=== PATIENT | male | born 1955 | race Caucasian/White ===

== ENCOUNTER 2023-05-02 22:47 | Emergency (ER) | payer MEDICARE, BC, SELFPAY ==
[2023-05-02 22:47] VITALS: BP 113/53; PULSE 81; RESP 16; TEMP 36.6; O2SAT 98; BMI 18.4
--- NOTE | 2023-05-02 23:11 | XR_ITS ---
PROCEDURE INFORMATION: Exam: XR Left Knee Exam date and time: 05/02/2023 11:34 PM Age: 67 years old Clinical indication: Pain; Knee; Left; Additional info: Fall, pain TECHNIQUE: Imaging protocol: Radiologic exam of the left knee. Views: 3 views. COMPARISON: No relevant prior studies available. FINDINGS: Bones/joints: Normal. No fracture evident Soft tissues: Normal. IMPRESSION: No acute findings.
--- NOTE | 2023-05-02 23:12 | ED_ITS ---
Discharge Plan Disposition Patient Disposition: Home, Self-Care Condition: Good Prescriptions Prescriptions: No Action multivitamin [Multi-Vitamin] Tablet 1 tab PO DAILY citalopram 10 mg Tablet 5 mg PO DAILY omeprazole 40 mg Capsule,Delayed Release(Dr/Ec) 40 mg PO DAILY haloperidol 10 mg Tablet 10 mg PO BID benztropine 1 mg Tablet 1 mg PO DAILY Referrals Follow up/Referrals: Abdulaziz Clay DO [Primary Care Provider] - See instructions Activity Restrictions/Add. Instructions Additional Instructions/Restrictions: You were evaluated in the emergency department today. Take Tylenol and ibuprofen as needed for pain. Follow-up with orthopedics if your pain persists beyond a few days. Return to the emergency department for new or worsening symptoms. Clinical Impressions Clinical Impression: Abrasion of knee, left, Fall Instructions Patient Instructions: How to Prevent Falls, DI for Knee Pain Discharge ED Provider: Myra Montes General Adult HPI General Chief complaint: Fall Stated complaint: Fall Time Seen by Provider: 05/02/23 23:00 Mode of Arrival: EMS Source of Information: Patient Limitations: No Limitations Description of Symptoms (Recalled from ER Triage Doc. by RN): pt had an unwitnessed fall and c/o lt leg pain History of Present Illness HPI narrative: This patient is a 67-year-old male with a history of schizophrenia presenting from [facility] with concern for a ground-level fall. Patient reports that he tripped and fell, and landed on his left knee. He has left knee pain. He does have an abrasion, for which a bandage was placed. No other injuries noted. No head injury, loss of consciousness, or other concerns. He was well prior to the fall. Patient arrives by EMS who notes that the patient was stable en route. Related Data Home Medications Medication Instructions Recorded Confirmed benztropine 1 mg tablet 1 mg PO DAILY 05/02/23 05/02/23 citalopram 10 mg tablet 5 mg PO DAILY 05/02/23 05/02/23 haloperidol 10 mg tablet 10 mg PO BID 05/02/23 05/02/23 multivitamin 1 tab PO DAILY 05/02/23 05/02/23 omeprazole 40 mg capsule,delayed 40 mg PO DAILY 05/02/23 05/02/23 release Allergies Allergy/AdvReac Type Severity Reaction Status Date / Time No Known Allergies Allergy Verified 05/02/23 22:53 [facility] Disclaimer: The information contained in this section may have been updated after the patient was seen, as this information can be updated by other users. Social History Smoking Status: Current every day smoker alcohol intake: never current occupational status: unemployed Travel in the last 8 weeks: None ROS Obtained: Yes All systems reviewed & no additional complaints except as documented Physical Exam General General appearance: alert and in no apparent distress Head Head exam: atraumatic and normocephalic Eye Eye exam: Present normal appearance, PERRL and EOMI ENT ENT exam: Present normal exam, normal oropharynx, mucous membranes moist and normal external ear exam Neck Neck exam: Present normal inspection, full ROM and trachea midline; Absent tenderness Chest Chest inspection: Present normal inspection and symmetric chest wall rise; Absent tenderness Respiratory Respiratory exam: Present normal lung sounds bilaterally; Absent respiratory distress, wheezes, stridor or accessory muscle use Cardiovascular Cardiovascular exam: Present regular rate and normal rhythm Abdominal Exam Abdominal exam: Present soft; Absent distention, tenderness or guarding Extremities Exam Extremities exam: Present full ROM, normal capillary refill and other (Superficial abrasion to the left knee); Absent tenderness, edema, joint swelling or cyanosis Back Exam Back exam: Present normal inspection and full ROM; Absent tenderness Neurological Exam Neurological exam: Present alert, oriented X3, CN II-XII intact and normal gait; Absent motor sensory deficit Psychiatric Psychiatric exam: Present normal affect and normal mood Skin Skin exam: Present warm, dry and other (Superficial abrasion to the left knee) Medical Decision Making Medical Records Medical records reviewed: Yes I reviewed the patient's medical records. Ruddy Inquiry Pt receiving controlled substance: No Vital Signs: 05/02/23 22:47 05/02/23 23:30 05/03/23 00:01 Temperature 97.9 F Temperature Source Oral Pulse Rate 64 65 Pulse Rate [Right] 81 Respiratory Rate 16 Blood Pressure 146/72 H 134/72 Blood Pressure [Right Arm] 113/53 L Blood Pressure Mean [Right Arm] 73 02 Sat by Pulse Oximetry 98 99 97 Oxygen Delivery Method 05/03/23 00:45 Temperature Temperature Source Pulse Rate 96 H Pulse Rate [Right] Respiratory Rate Blood Pressure 167/71 H Blood Pressure [Right Arm] Blood Pressure Mean [Right Arm] 02 Sat by Pulse Oximetry 81 L Oxygen Delivery Method Room Air Lab Data Lab results reviewed: Yes I reviewed the patient's lab results. Orders (Tests/Meds): ORDERS Category Date Time Status XR knee LT 3V Stat Exams 05/02/23 23:11 Completed Medical Decision Narrative: In summary, this patient is a 67-year-old male presenting to the Emergency Department for evaluation of left knee pain after a minor mechanical ground-leve l fall. Differential diagnoses considered include but are not limited to abrasion, contusion, ligamentous injury, joint effusion, status: Strain/pain, fracture. Ruling out the most morbid conditions drove assessment. It should be noted patient's history includes schizophrenia which may or may not be at goal therapy. This complicates all aspects of care by increasing patient's risk for morbidity. On exam, the patient is well-appearing and has no external signs of trauma aside from a superficial abrasion to the left knee. Workup included x-rays of the left knee. Given the minor nature of his injuries, I did not feel that other imaging was indicated. I independently interpreted x-ray prior to the radiologist read and noted no joint effusion, no acute fracture, and no other concerns. Please see their read for final interpretation. At this time, patient was deemed appropriate for discharge. His facility was contacted, and the patient was discharged back to them in stable condition. Critical Care Critical Care Time Critical Care Time: No
[2023-05-02 23:30] VITALS: BP 146/72; PULSE 64; O2SAT 99
[2023-05-03 00:01] VITALS: BP 134/72; PULSE 65; O2SAT 97
--- NOTE | 2023-05-03 00:35 | PC.NURSE ---
phone call made to Kevan Mckeon for patient transport back to facility. no answer.
[2023-05-03 00:45] VITALS: BP 167/71; PULSE 96; O2SAT 81
--- NOTE | 2023-05-03 00:46 | PC.NURSE ---
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 They will call us back
--- NOTE | 2023-05-03 01:41 | PC.NURSE ---
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
[2023-05-03 01:48] VITALS: BP 165/70; PULSE 65; RESP 18; TEMP 36.8; O2SAT 97
== END 2023-05-03 01:49 | disposition home or self-care (01) ==
PROVIDERS: Emergency Provider Emergency Medicine; PCP Internal Medicine
DX: S80.212A Abrasion, left knee, initial encounter (principal); F17.210 Nicotine dependence, cigarettes, uncomplicated; W01.10XA Fall on same level from slipping, tripping and stumbling with subsequent striking against unspecified object, initial encounter
CPT/HCPCS: 73562; 99283

== ENCOUNTER 2023-05-03 20:30 | Emergency (ER) | payer MEDICARE, BC, SELFPAY ==
[2023-05-03] VITALS (7 sets, daily range): BP systolic 124–147; BP diastolic 68–90; PULSE 77–105; RESP 20–33; TEMP 36.8–37; O2SAT 95–100; BMI 23.5
--- NOTE | 2023-05-03 20:39 | ED_ITS ---
Discharge Plan Disposition Patient Disposition: Xfer Short-Term Hosp Chief Complaint: PAIN Prescriptions Prescriptions: No Action multivitamin [Multi-Vitamin] Tablet 1 tab PO DAILY citalopram 10 mg Tablet 5 mg PO DAILY omeprazole 40 mg Capsule,Delayed Release(Dr/Ec) 40 mg PO DAILY haloperidol 10 mg Tablet 10 mg PO BID benztropine 1 mg Tablet 1 mg PO DAILY Referrals Follow up/Referrals: Avelino Maynard APRN [Primary Care Provider] - See instructions Clinical Impressions Clinical Impression: Fall Closed intertrochanteric fracture Qualifiers: Encounter type: initial encounter Fracture alignment: displaced Laterality: left Qualified Code(s): S72.142A - Displaced intertrochanteric fracture of left femur, initial encounter for closed fracture Discharge ED Provider: Carlos Eduardo Bennett General Adult HPI General Chief complaint: PAIN Stated complaint: Difficulty walking Time Seen by Provider: 05/03/23 20:32 History of Present Illness HPI narrative: 67 male with history of tardive dyskinesia secondary to chronic psychiatric meds presenting with left leg pain. Patient states that his left leg has been hurting since yesterday, 05/02. Cramping, is around his knee anteriorly. Made worse with trying to walk. He is able to bear weight, but it hurts to do this. He currently stays at [facility]. Patient states that his tremor, breathing, and baseline appearance today are not worse. His only complaint is left knee pain, which is atraumatic and was worked up with imaging yesterday. Related Data Home Medications Medication Instructions Recorded Confirmed benztropine 1 mg tablet 1 mg PO DAILY 05/02/23 05/02/23 citalopram 10 mg tablet 5 mg PO DAILY 05/02/23 05/02/23 haloperidol 10 mg tablet 10 mg PO BID 05/02/23 05/02/23 multivitamin 1 tab PO DAILY 05/02/23 05/02/23 omeprazole 40 mg capsule,delayed 40 mg PO DAILY 05/02/23 05/02/23 release Allergies Allergy/AdvReac Type Severity Reaction Status Date / Time No Known Allergies Allergy Verified 05/02/23 22:53 [facility] Disclaimer: The information contained in this section may have been updated after the patient was seen, as this information can be updated by other users. Social History (Updated 05/03/23 @ 01:40 by EMMIE Delatorre Smoking Status: Unknown if ever smoked alcohol intake: never current occupational status: unemployed Travel in the last 8 weeks: None ROS Obtained: Yes All systems reviewed & no additional complaints except as documented Physical Exam General General appearance: alert, in no apparent distress and cachectic Head Head exam: atraumatic and normocephalic Eye Eye exam: Present normal appearance, PERRL, EOMI and other (No evidence of proptosis) ENT ENT exam: Present mucous membranes moist and other (Edentulous) Neck Neck exam: Present normal inspection, full ROM and trachea midline Respiratory Respiratory exam: Present normal lung sounds bilaterally and other (Tachypneic with periodic); Absent respiratory distress, wheezes, stridor, accessory muscle use or prolonged expiratory phase Cardiovascular Cardiovascular exam: Present normal rhythm and tachycardia Abdominal Exam Abdominal exam: Present soft; Absent distention, tenderness, guarding, rebound or rigidity Extremities Exam Extremities exam: Present other (Decreased range of motion left knee secondary to pain with extension and muscle spasms posteriorly when extending. Structurally intact. No lower extremity injuries. Neurovascular intact as well. Hip is externally rotated); Absent edema Neurological Exam Neurological exam: Present alert, CN II-XII intact, normal gait and other (Upper and lower extremity tremors); Absent motor sensory deficit Skin Skin exam: Present warm and dry; Absent diaphoresis or erythema Medical Decision Making Medical Records Medical records reviewed: Yes I reviewed the patient's medical records. Ruddy Inquiry Pt receiving controlled substance: No Ruddy was queried for this patient: No Vital Signs: 05/03/23 20:33 05/03/23 20:31 05/03/23 21:02 Temperature 98.6 F Temperature Source Axillary Pulse Rate 105 H Pulse Rate [Left Radial] 103 H Respiratory Rate 24 20 33 H Blood Pressure 147/90 H 124/68 Blood Pressure [Right Arm] 147/90 H Blood Pressure Mean [Right Arm] 109 Blood Pressure Source [Right Arm] Automatic Cuff Blood Pressure Position [Right Arm] Supine 02 Sat by Pulse Oximetry 97 95 Oxygen Delivery Method Room Air 05/03/23 21:33 Temperature Temperature Source Pulse Rate 92 H Pulse Rate [Left Radial] Respiratory Rate 21 Blood Pressure 141/71 H Blood Pressure [Right Arm] Blood Pressure Mean [Right Arm] Blood Pressure Source [Right Arm] Blood Pressure Position [Right Arm] 02 Sat by Pulse Oximetry 100 Oxygen Delivery Method Lab Data Lab Results 05/03/23 20:28: Urine Color Yellow, Urine Appearance Clear, Urine pH 6.0, Ur Specific [place] 1.025, Urine Protein Negative, Urine Glucose (UA) Negative, Urine Ketones Trace, Urine Blood Negative, Urine Nitrate Negative, Urine Bilirubin Negative, Urine Urobilinogen 0.2, Ur Leukocyte Esterase Negative, Urine RBC None, Urine WBC None, Ur Squamous Epith Cells None, Urine Bacteria None, Urine Opiates Screen Negative, Urine Methadone Screen Negative, Ur Barbituates Screen Negative, Ur Phencyclidine Scrn Negative, Ur Amphetamines Screen Negative, U Benzodiazepines Scrn Negative, Urine Cocaine Screen Negative, U Marijuana (THC) Screen Negative Orders (Tests/Meds): ED MEDICATIONS Discontinued Medications Generic Name Dose Route Start Last Admin Trade Name Tila PRN Reason Stop Dose Admin Hydromorphone HCl 0.5 mg 05/03/23 22:10 Hydromorphone 2mg/Ml Syringe IV 05/03/23 22:11 ONCE ONE Ketorolac Tromethamine 15 mg 05/03/23 22:10 Ketorolac 30mg/Ml Vial IV 05/03/23 22:11 ONCE ONE Methocarbamol 750 mg 05/03/23 20:43 05/03/23 20:56 Methocarbamol 500mg Tablet PO 05/03/23 20:44 750 mg ONCE ONE Administration ORDERS Category Date Time Status Femur XR left 2 views [XR femur LT 2V] Stat Exams 05/03/23 20:47 Taken Hip XR left minimum 2 views [XR hip LT 2-3V w/pelvis] Exams 05/03/23 20:47 Taken Stat Knee XR left 3 views [XR knee LT 3V] Stat Exams 05/03/23 20:47 Taken CBC w/Auto Diff [Complete Blood Count Auto Diff] Stat Lab 05/03/23 20:38 Ordered CMP [Comprehensive Metabolic Panel] Stat Lab 05/03/23 20:38 Ordered Magnesium Stat Lab 05/03/23 20:38 Ordered PT INR [Prothrombin Time INR] Stat Lab 05/03/23 22:06 Ordered PTT [Activated Partial Thrombo Time] Stat Lab 05/03/23 22:06 Ordered T4 (Thyroxine) Stat Lab 05/03/23 20:38 Ordered TSH [Thyroid Stimulating Hormone] Stat Lab 05/03/23 20:38 Ordered UA [Urinalysis and Microscopic] Stat Lab 05/03/23 20:28 Completed UDS [Drug Screen,Urine] Stat Lab 05/03/23 20:28 Completed Medical Decision Narrative: 67 male with history of tardive dyskinesia secondary to chronic psychiatric meds presenting with left leg pain. Patient states that his left leg has been hurting since yesterday, 05/02. Cramping, is around his knee anteriorly. Made worse with trying to walk. He is able to bear weight, but it hurts to do this. He currently stays at [facility]. Patient states that his tremor, breathing, and baseline appearance today are not worse. His only complaint is l eft knee pain, which is atraumatic and was worked up with imaging yesterday. History was obtained via conversation with patient, EMS, [facility] staff. [facility] staff also state that patient has not been up out of bed, but was found in his wheelchair upon EMS arrival and denying knowledge of any further falls today. On arrival, patient hemodynamically stable, alert, appropriate, GCS 15, moving all extremities spontaneously, pupils equal and reactive to light. Full physical exam performed and significant for tenderness about left lower extremity when trying to extend left knee. Able to, but patient having muscle spasms on the back of his leg and straight leg positive. Patient's left lower extremity is externally rotated. Neurovascularly intact. No lower extremity tr auma or other abnormalities. Differential includes sprain, strain, fracture, dislocation, radiculopathy, muscle spasm, among others. Patient was given Robaxin 750 mg p.o. for symptomatic management and correction of underlying abnormalities. Workup independently interpreted. patient has left-sided intertrochanteric femur fracture. No evidence of pelvis or knee abnormalities. See radiology read for full review of final results. Hematologic labs pending at time of transfer. On reevaluation, patient in moderate to severe pain. Given Dilaudid and Toradol. Because we do not have orthopedics here at [facility], orthopedic surgery at [facility] was contacted. Given patient presentation, workup, history, this most likely represents acute femur fracture in setting of fall. Because patient high risk for clinical decompensation if discharged, deemed appropriate for transfer and inpatient admission. Results were relayed to patient who voiced understanding and patient was agreeable to transfer, inpatient admission, and management. Patient was graciously accepted and transferred to for further definitive management, under Dr. Andrew. Critical Care Critical Care Time Critical Care Time: Yes (ortho) Attestation: On 05/03/23, the high probability of a clinically significant, sudden or life threatening deterioration of the following system(s) required my full and direct attention, intervention and personal management. The time I documented below is in addition to time spent performing reported procedures but includes the following listed in this critical care notation. Total Time Total Critical Care Time: 35
[2023-05-03 20:42] LABS: Microscopic, Urine URINE MICROSCOPIC (MICROSCOPIC)
--- NOTE | 2023-05-03 20:47 | XR_ITS ---
PROCEDURE INFORMATION: Exam: XR Left Hip Exam date and time: 05/03/2023 9:46 PM Age: 67 years old Clinical indication: Injury or trauma; Fall; Fracture of pelvis & hip; Left; Not specified; Neck of femur; Closed fracture; Additional info: Left him and knee pain TECHNIQUE: Imaging protocol: Radiologic exam of the left hip. Views: 2 or 3 views hip with pelvis when performed. COMPARISON: No relevant prior studies available. FINDINGS: Bones/joints: Comminuted, displaced, angulated, impacted left femoral intratrochanteric fracture. No dislocation. Unremarkable right hip for acute findings. Soft tissues: Unremarkable. IMPRESSION: Left femoral intratrochanteric fracture.
--- NOTE | 2023-05-03 20:47 | XR_ITS ---
PROCEDURE INFORMATION: Exam: XR Left Femur Exam date and time: 05/03/2023 9:49 PM Age: 67 years old Clinical indication: Injury or trauma; Fall; Fracture, traumatic; Closed fracture; Hip; Left; Additional info: Left him and knee pain TECHNIQUE: Imaging protocol: Radiologic exam of the left femur. Views: 2 views. COMPARISON: CR XR HIP LT 2-3V W/PELVIS 05/03/2023 9:46 PM FINDINGS: Bones/joints: Unremarkable. No acute fracture. Soft tissues: Unremarkable. IMPRESSION: No acute findings.
--- NOTE | 2023-05-03 20:47 | XR_ITS ---
PROCEDURE INFORMATION: Exam: XR Left Knee Exam date and time: 05/03/2023 9:50 PM Age: 67 years old Clinical indication: Injury or trauma; Fall; Fracture, traumatic; Closed fracture; Hip; Left; Additional info: Left him and knee pain TECHNIQUE: Imaging protocol: Radiologic exam of the left knee. Views: 3 views. COMPARISON: CR XR KNEE LT 3V 05/02/2023 11:34 PM FINDINGS: Bones/joints: Mild degenerative changes. Intact cortices. Normal bony density. Soft tissues: Normal. IMPRESSION: No acute findings.
[2023-05-03 20:51] LABS: Appearance,Urine CLEAR (Clear); Bilirubin,Urine Negative (Negative); Blood, Urine Negative (Negative); Color,Urine YELLOW (Yellow); Glucose,Urine (UA) Negative (Negative); Ketones,Urine TRACE (Negative); Leukocyte Esterase,Urine Negative (Negative); Nitrate,Urine Negative (Negative); Protein,Urine Negative (Negative); Specific Gravity, Urine 1.025 (1.005-1.030); Urobilinogen,Urine 0.2 EU/dl (0.2)
[2023-05-03] MEDS: METHOCARBAMOL 500MG TABLET 750 MG PO (20:56)
[2023-05-03 21:03] LABS: Benzodiazepines Screen,Urine Negative ng/ml (<200)
[2023-05-03 21:04] LABS: Amphetamine/Metha Screen,Urine Negative ng/ml (<1000); Barbiturates Screen,Urine Negative ng/ml (<200)
[2023-05-03 21:05] LABS: Cannabinoid Screen,Urine Negative ng/ml (<50)
[2023-05-03 21:06] LABS: Cocaine Screen,Urine Negative ng/ml (<300)
[2023-05-03 21:07] LABS: Opiate Screen,Urine Negative ng/ml (<300); Phencyclidine Screen,Urine Negative ng/ml (<25)
[2023-05-03 21:10] LABS: Methadone Screen,Urine Negative ng/ml (<300)
--- NOTE | 2023-05-03 21:31 | PC.NURSE ---
Rounded on patient, no needs voiced at this time.
--- NOTE | 2023-05-03 21:49 | PC.NURSE ---
patient gone to Xray at this time.
--- NOTE | 2023-05-03 22:11 | PC.NURSE ---
o/p with at this time.
--- NOTE | 2023-05-03 22:14 | PC.NURSE ---
[facility] will call back when physician is available.
--- NOTE | 2023-05-03 22:23 | PC.NURSE ---
o/p with at this time.
--- NOTE | 2023-05-03 22:27 | PC.NURSE ---
patient accepted to [facility] at this time at this time.
[2023-05-03] MEDS: HYDROMORPHONE 2MG/ML SYRINGE 0.5 MG IV (22:29)
--- NOTE | 2023-05-03 22:29 | PC.NURSE ---
patient back in room at this time.
[2023-05-03] MEDS: KETOROLAC 30MG/ML VIAL 15 MG IV (22:30)
[2023-05-03 22:39] LABS: Basophils % 0.2 % (0.1-2.0); Eosinophils # 0.2 K/mm3 (0.0-0.4); Eosinophils % 1.6 % (0.1-12.0); Hematocrit 32.8 % (42.0-52.0); Hemoglobin 11.1 g/dL (14.1-18.0); Lymphocytes # 1.4 K/mm3 (0.7-4.5); Lymphocytes % 9.4 % (10-50); Mean Corpuscular HGB Conc 33.9 g/dL (31.8-35.4); Mean Corpuscular Hemoglobin 33.1 pg (27.0-31.2); Mean Corpuscular Volume 97.6 fl (80-94); Mean Platelet Volume 8.2 fl (7.4-10.4); Monocytes # 0.8 K/mm3 (0.1-1.0); Monocytes % 5.6 % (1.7-9.3); Neutrophils # 12.3 K/mm3 (1.8-7.8); Neutrophils % 83.3 % (37.0-80.0); Platelet Count 279 K/mm3 (142-424); Red Blood Count 3.36 M/mm3 (4.60-6.20); Red Cell Distribution Width 13.5 % (11.5-17.5); White Blood Count 14.8 K/mm3 (4.8-10.8)
[2023-05-03 22:44] LABS: Chloride 109 mmol/L (98-107); Potassium 4.2 mmoL/L (3.5-5.1); Sodium 138 mmol/L (136-145)
[2023-05-03 22:46] LABS: Blood Urea Nitrogen 48 mg/dl (9-20); Creatinine Clearance Estimated 37 mL/min (50-200); Estimated Glomerular Filt Rate 38 ml/min (>60); GFR (African American) 45 ML/MIN (>60)
[2023-05-03 22:47] LABS: Alanine Aminotransferase 42 U/L (12-78); Albumin Level 4.3 g/dl (3.5-5.0); Albumin/Globulin Ratio 1.3 (1.1-1.8); Alkaline Phosphatase 94 U/L (38-126); Anion Gap 14.2 mEq/L (5-15); Aspartate Amino Transferase 43 U/L (17-59); Bilirubin,Total 1.4 mg/dl (0.2-1.3); Calcium 9.1 mg/dl (8.4-10.2); Carbon Dioxide 19 mmol/L (22.0-30.0); Globulin 3.2 g/dL (1.3-3.2); Glucose 121 mg/dl (74-100); Total Protein,Serum 7.5 g/dl (6.3-8.2)
--- NOTE | 2023-05-03 22:47 | PC.NURSE ---
Report called to [facility] ED
--- NOTE | 2023-05-03 22:50 | PC.NURSE ---
notified EMS that pt is ready for transport to ER
[2023-05-03 23:04] LABS: Activated Partial Thrombo Time 21.7 seconds (22.8-30.6); INR 1.11 (0.9-1.1); Prothrombin Time 11.9 seconds (10.1-12.5)
[2023-05-03 23:05] LABS: T4 (Thyroxine) 8.5 ug/dl (5.53-11.0)
[2023-05-03] MEDS: HYDROMORPHONE 2MG/ML SYRINGE 1 MG IV (23:06)
[2023-05-03 23:18] LABS: Thyroid Stimulating Hormone 2.49 uIU/mL (0.465-4.68)
[2023-05-03] MEDS: ONDANSETRON 4MG/2ML VIAL 4 MG IV (23:31)
== END 2023-05-03 23:34 | disposition short-term general hospital (02) ==
PROVIDERS: Emergency Provider Emergency Medicine; PCP Nurse Practitioner Acute Care
DX: S72.142A Displaced intertrochanteric fracture of left femur, initial encounter for closed fracture (principal); G24.01 Drug induced subacute dyskinesia; Z79.899 Other long term (current) drug therapy; W19.XXXA Unspecified fall, initial encounter
CPT/HCPCS: 73502; 73552; 73562; 80053; 80307; 81001; 83735; 84436; 84443; 85025; 85610; 85730; 96374; 96375; 96376; 99285; J2405

== ENCOUNTER 2023-06-15 01:55 | Emergency (ER) | payer MEDICARE, BC, SELFPAY ==
[2023-06-15] VITALS (8 sets, daily range): BP systolic 100–112; BP diastolic 49–60; PULSE 62–70; RESP 16–18; TEMP 36.6–36.8; O2SAT 97–98; BMI 24.4
--- NOTE | 2023-06-15 01:56 | XR_ITS ---
PROCEDURE INFORMATION: Exam: XR Left Hip Exam date and time: 06/15/2023 2:08 AM Age: 67 years old Clinical indication: Pain and injury or trauma; Fall; Blunt trauma (contusions or hematomas); Hip pain; Left hip; Prior surgery; Surgery date: 1-6 months; Surgery type: Lt. Hip FX. And repair apr 2023 TECHNIQUE: Imaging protocol: Radiologic exam of the left hip. Views: 2 or 3 views hip with pelvis when performed. COMPARISON: CR XR HIP LT 2-3V W/PELVIS 05/03/2023 9:46 PM FINDINGS: Bones/joints: The bony pelvis is intact. There is no fracture or focal lesion. The SI joints, hips and pubic symphysis are normally aligned. Dedicated imaging of the left hip demonstrates normal alignment. There is transfemoral nail fixation of a prior intertrochanteric fracture. Fracture line remains evident medially. Soft tissues: Unremarkable. IMPRESSION: Normally aligned left hip. No acute findings.
--- NOTE | 2023-06-15 01:56 | XR_ITS ---
PROCEDURE INFORMATION: Exam: XR Left Femur Exam date and time: 06/15/2023 2:12 AM Age: 67 years old Clinical indication: Pain; Left; Prior surgery; Surgery date: 1-6 months; Surgery type: Lt hip surgery in 2023; Additional info: Fall TECHNIQUE: Imaging protocol: Radiologic exam of the left femur. Views: 2 views. COMPARISON: CR XR FEMUR LT 2V 05/03/2023 9:49 PM FINDINGS: Bones/joints: There is transfemoral nail fixation of a left intertrochanteric fracture. The alignment is anatomic. No acute fracture is noted. Medial portion of the fracture remains evident. The distal femur is intact. The knee and hip are normally aligned. Soft tissues: Unremarkable. IMPRESSION: No acute findings. Transforaminal nail fixation of a left intratrochanteric fracture.
--- NOTE | 2023-06-15 01:56 | XR_ITS ---
PROCEDURE INFORMATION: Exam: XR Left Knee Exam date and time: 06/15/2023 2:10 AM Age: 67 years old Clinical indication: Pain; Knee; Left; Additional info: Knee pain TECHNIQUE: Imaging protocol: Radiologic exam of the left knee. Views: 3 views. COMPARISON: CR XR KNEE LT 3V 05/03/2023 9:50 PM FINDINGS: Bones/joints: The knee is normally aligned. No acute fracture or joint effusion. No significant degenerative changes. Tubular lucency proximal tibial shaft likely related to prior fixation screw. Soft tissues: Normal. IMPRESSION: No acute findings.
--- NOTE | 2023-06-15 02:09 | ED_ITS ---
Discharge Plan Disposition Patient Disposition: Home, Self-Care Prescriptions Prescriptions: No Action multivitamin [Multi-Vitamin] Tablet 1 tab PO DAILY citalopram 10 mg Tablet 5 mg PO DAILY omeprazole 40 mg Capsule,Delayed Release(Dr/Ec) 40 mg PO DAILY haloperidol 10 mg Tablet 10 mg PO BID benztropine 1 mg Tablet 1 mg PO DAILY Referrals Follow up/Referrals: Provider,Referral, MD [Primary Care Provider] - See instructions Clinical Impressions Clinical Impression: Knee pain, left Discharge ED Provider: Dario Hargrove General Adult HPI General Chief complaint: PAIN Stated complaint: Evaluation Time Seen by Provider: 06/15/23 01:55 History of Present Illness HPI narrative: 67-year-old male with history of psychiatric comorbidities, resident at a [facility], recent intertrochanteric left femur fracture that was transferred to , presents from the [facility] without significant complaints. He reportedly complained to the workers there that he was not feeling well, they checked his blood pressure with a blood pressure cuff on his wrist and reported that his blood pressure was 180s over 160s and called EMS. On EMS arrival patient had normal vital signs including blood pressure heart rate SpO2. Arrival patient is awake alert interactive and his only complaint is atraumatic left knee pain. He denies any other complaints at this time. Related Data Home Medications Medication Instructions Recorded Confirmed benztropine 1 mg tablet 1 mg PO DAILY 05/02/23 05/02/23 citalopram 10 mg tablet 5 mg PO DAILY 05/02/23 05/02/23 haloperidol 10 mg tablet 10 mg PO BID 05/02/23 05/02/23 multivitamin 1 tab PO DAILY 05/02/23 05/02/23 omeprazole 40 mg capsule,delayed 40 mg PO DAILY 05/02/23 05/02/23 release Allergies Allergy/AdvReac Type Severity Reaction Status Date / Time No Known Allergies Allergy Verified 05/02/23 22:53 [facility] Disclaimer: The information contained in this section may have been updated after the patient was seen, as this information can be updated by other users. Social History (Updated 05/03/23 @ 01:40 by Myra Montes DO) Smoking Status: Current every day smoker alcohol intake: never current occupational status: unemployed Travel in the last 8 weeks: None ROS Obtained: Yes All systems reviewed & no additional complaints except as documented Physical Exam General General appearance: alert and in no apparent distress Head Head exam: atraumatic and normocephalic Eye Eye exam: Present normal appearance, PERRL and EOMI ENT ENT exam: Present normal oropharynx, normal external ear exam and other (Poor dentition) Neck Neck exam: Present normal inspection and full ROM Chest Chest inspection: Present normal inspection and symmetric chest wall rise; Absent tenderness Respiratory Respiratory exam: Present normal lung sounds bilaterally; Absent respiratory distress Cardiovascular Cardiovascular exam: Present regular rate and normal rhythm Abdominal Exam Abdominal exam: Present soft; Absent distention, tenderness or guarding Extremities Exam Extremities exam: Present normal inspection and other (No significant tenderness of the left knee, no swelling, normal range of motion, no overlying erythema); Absent edema or joint swelling Back Exam Back exam: Present normal inspection; Absent tenderness Neurological Exam Neurological exam: Present alert and oriented X3; Absent motor sensory deficit Psychiatric Psychiatric exam: Present normal affect and normal mood Skin Skin exam: Present warm, dry and normal color Lymphatic Lymphatic Findings: no adenopathy Medical Decision Making Medical Records Medical records reviewed: Yes I reviewed the patient's medical records. Ruddy Inquiry Pt receiving controlled substance: No Ruddy was queried for this patient: No Vital Signs: 06/15/23 01:55 06/15/23 02:00 06/15/23 02:20 Temperature 97.9 F Temperature Source Oral Pulse Rate 62 Pulse Rate [Left] 63 62 Respiratory Rate 16 18 16 Blood Pressure 100/49 L Blood Pressure [Right Arm] 105/51 L 100/49 L Blood Pressure Mean 68 Blood Pressure Mean [Right Arm] 69 66 02 Sat by Pulse Oximetry 97 98 97 Oxygen Delivery Method Room Air Room Air Room Air 06/15/23 02:57 06/15/23 03:00 06/15/23 03:30 Temperature 98.3 F Temperature Source Oral Pulse Rate 70 Pulse Rate [Left] 65 62 Respiratory Rate 16 16 16 Blood Pressure 100/49 L Blood Pressure [Right Arm] 110/60 106/54 L Blood Pressure Mean Blood Pressure Mean [Right Arm] 76 71 02 Sat by Pulse Oximetry 97 97 Oxygen Delivery Method Room Air 06/15/23 04:00 06/15/23 04:47 Temperature 97.9 F Temperature Source Pulse Rate 65 Pulse Rate [Left] 62 Respiratory Rate 16 16 Blood Pressure 112/60 Blood Pressure [Right Arm] 108/56 L Blood Pressure Mean Blood Pressure Mean [Right Arm] 73 02 Sat by Pulse Oximetry 97 Oxygen Delivery Method Room Air Lab Data Lab results reviewed: Yes I reviewed the patient's lab results. Orders (Tests/Meds): ED MEDICATIONS Discontinued Medications Generic Name Dose Route Start Last Admin Trade Name Tila PRN Reason Stop Dose Admin Acetaminophen 1,000 mg 06/15/23 01:56 Acetaminophen 500mg Tab PO 06/15/23 01:57 ONCE ONE ORDERS Category Date Time Status Femur XR left 2 views [XR femur LT 2V] Stat Exams 06/15/23 01:56 Completed Knee XR left 3 views [XR knee LT 3V] Stat Exams 06/15/23 01:56 Completed XR hip LT 2-3V w/pelvis Stat Exams 06/15/23 01:56 Completed Medical Decision Narrative: 67-year-old male with history of psychiatric comorbidities, resident at a [facility], presents from his facility after concerns about his blood pressure. His vitals were normal with EMS and on arrival, his only complaint is left knee pain.. History was obtained interactive discussion with patient, EMS, chart review. On arrival, patient is afebrile, hemodynamically stable, satting appropriately on room air, awake alert and interactive, mental status seems to be at baseline, moving all extremities spontaneously. Full physical exam performed and significant for no acute trauma or focal tenderness. Differential includes but is not limited to fracture, dislocation, neurovascular/ligamentous injury Patient was given Tylenol for symptomatic management and correction of underlying abnormalities. Workup initiated including radiographs of the left hip femur knee. On re-evaluation, patient [remains afebrile, HD stable.] Reports symptomatic improvement after Tylenol. Imaging independently interpreted by me and significant for stable appearance of the patient's fixating hardware, no new fracture or dislocation. See radiology read for full review of final results. Given patient history, exam and workup, patient's presentation most likely represents left knee pain without concern for significant emergent pathology. Patient was discharged in stable condition. Return precautions given. Procedures Risk/Benefits of Procedure(s) Were Explained: Yes Critical Care Critical Care Time Critical Care Time: No
--- NOTE | 2023-06-15 04:00 | PC.NURSE ---
Called [facility] to get status update. They report they had an influx of critical studies, but have just assigned these studies now to a radiologist
--- NOTE | 2023-06-15 04:07 | PC.NURSE ---
Just received all study reads from [facility]. made aware
--- NOTE | 2023-06-15 04:38 | PC.NURSE ---
spoke with [facility] staff they advised they would pass on the dayshift that patient need to be pick up attendant
== END 2023-06-15 04:48 | disposition home or self-care (01) ==
PROVIDERS: Emergency Provider Emergency Medicine
DX: M25.562 Pain in left knee (principal); F17.210 Nicotine dependence, cigarettes, uncomplicated
CPT/HCPCS: 73502; 73552; 73562; 99284

== ENCOUNTER 2023-09-05 11:09 | Emergency (ER) | payer MEDICARE, BC, SELFPAY ==
[2023-09-05] VITALS (11 sets, daily range): BP systolic 100–115; BP diastolic 42–89; PULSE 58–105; RESP 16–18; TEMP 36.6–36.8; O2SAT 95–99; BMI 3612.6
--- NOTE | 2023-09-05 11:24 | PC.NURSE ---
DR MCDUFFIE AT BEDSIDE
--- NOTE | 2023-09-05 11:25 | XR_ITS ---
FINAL REPORT CLINICAL HISTORY: fall COMPARISON: 05/03/2023 FINDINGS: Two views show of the left femur were obtained. Patient is status post ORIF change of the left proximal femur with incomplete bony union of the intertrochanteric fracture. No new fracture is identified. IMPRESSION: Incomplete union of the intertrochanteric fracture. Reviewed, Interpreted and Dictated by Radha Neal MD Transcribed by Jerilyn Oh Authenticated and . [facility]
--- NOTE | 2023-09-05 11:25 | XR_ITS ---
FINAL REPORT CLINICAL HISTORY: fall COMPARISON: 05/03/2023 FINDINGS: There is no acute fracture or dislocation. The joint spaces are intact. There is no soft tissue abnormality. IMPRESSION: No acute fracture Reviewed, Interpreted and Dictated by Radha Neal MD Transcribed by Jerilyn Oh Authenticated and . [facility]
--- NOTE | 2023-09-05 11:26 | XR_ITS ---
FINAL REPORT CLINICAL HISTORY: fall FINDINGS: Three views of the left hip were obtained. Patient is status post ORIF change of the left proximal femur with incomplete bony union of the intertrochanteric fracture. No new fracture is identified. IMPRESSION: Incomplete union of the intertrochanteric fracture. Reviewed, Interpreted and Dictated by Radha Neal MD Transcribed by Jerilyn Oh Authenticated and . [facility]
--- NOTE | 2023-09-05 11:26 | ED_ITS ---
Discharge Plan Disposition Patient Disposition: Home, Self-Care Chief Complaint: Fall Prescriptions Prescriptions: No Action multivitamin [Multi-Vitamin] Tablet 1 tab PO DAILY citalopram 10 mg Tablet 5 mg PO DAILY omeprazole 40 mg Capsule,Delayed Release(Dr/Ec) 40 mg PO DAILY haloperidol 10 mg Tablet 10 mg PO BID benztropine 1 mg Tablet 1 mg PO DAILY Referrals Follow up/Referrals: Provider,Referral, MD [Primary Care Provider] - See instructions Clinical Impressions Clinical Impression: Fall, Knee pain, left Discharge ED Provider: Antoine Harman General Adult HPI General Chief complaint: Fall Stated complaint: FALL Time Seen by Provider: 09/05/23 11:12 Mode of Arrival: EMS Source of Information: EMS Limitations: No Limitations Description of Symptoms (Recalled from ER Triage Doc. by RN): pt brought in by [facility] for a fall, resident of [facility], [facility] staff told ems pt had just gotten up and was walking and fell backwards in the doorway, didn't hit his head, denies LOC, states he just fell backwards and hit his buttock, they stated pt was unable to walk after the incident and they had to carry him back to his bed, pt denies any pain at this time, per staff pt is at his baseline, not on a blood thinner, alert to self per staff at retirement History of Present Illness HPI narrative: Patient is a 67-year-old male who presents emergency department from [facility] for evaluation traumatic injury sustained in a fall. Patient was walking when he took a fall onto the ground. Staff witnessed him fall on his butt and he is complaining of left knee pain. He initially had difficulty walking however was able to ambulate from the stretcher over to the bed complaining only of left knee pain at this time. No blood thinners. Did not knock himself out. No other acute complaints at this time. Of note he does gasp irregularly at baseline per [facility] staff which is what he is doing on my initial evaluation. Related Data Home Medications Medication Instructions Recorded Confirmed benztropine 1 mg tablet 1 mg PO DAILY 05/02/23 05/02/23 citalopram 10 mg tablet 5 mg PO DAILY 05/02/23 05/02/23 haloperidol 10 mg tablet 10 mg PO BID 05/02/23 05/02/23 multivitamin 1 tab PO DAILY 05/02/23 05/02/23 omeprazole 40 mg capsule,delayed 40 mg PO DAILY 05/02/23 05/02/23 release Allergies Allergy/AdvReac Type Severity Reaction Status Date / Time No Known Allergies Allergy Verified 05/02/23 22:53 [facility] Disclaimer: The information contained in this section may have been updated after the patient was seen, as this information can be updated by other users. Social History (Updated 05/03/23 @ 01:40 by Myra Montes DO) Smoking Status: Smoker, status unknown alcohol intake: never current occupational status: unemployed Travel in the last 8 weeks: None ROS Obtained: Yes Systems reviewed as appropriate & no additional complaints except as documented Physical Exam General General appearance: alert, in no apparent distress and other (Intermittently gasping in bed) Head Head exam: atraumatic and normocephalic Eye Eye exam: Present PERRL and EOMI ENT ENT exam: Present mucous membranes moist Neck Neck exam: Present normal inspection Chest Chest inspection: Present normal inspection and symmetric chest wall rise Respiratory Respiratory exam: Present normal lung sounds bilaterally; Absent respiratory distress Cardiovascular Cardiovascular exam: Present regular rate and normal rhythm Abdominal Exam Abdominal exam: Present soft; Absent tenderness Extremities Exam Extremities exam: Present normal inspection and other (Extensor mechanism intact left lower extremity at the hip and the knee. Palpable dorsal pedal pulse on the left. Mild tenderness palpation over the left knee. 5 out of 5 strength bilateral lower extremities. No tenderness over the remainder of the extremities.) Back Exam Back exam: Present normal inspection; Absent tenderness Neurological Exam Neurological exam: Present alert; Absent motor sensory deficit Psychiatric Psychiatric exam: Present normal affect Skin Skin exam: Present warm and dry Medical Decision Making Ruddy Inquiry Pt receiving controlled substance: No Vital Signs: 09/05/23 11:09 09/05/23 11:20 09/05/23 11:31 Temperature 98.2 F Temperature Source Oral Pulse Rate 75 88 Pulse Rate [Left Radial] 105 H Respiratory Rate 18 Blood Pressure 102/76 L 114/89 Blood Pressure [Right Arm] 112/71 Blood Pressure Mean 84 96 Blood Pressure Mean [Right Arm] 84 Blood Pressure Source [Right Arm] Automatic Cuff Blood Pressure Position [Right Arm] Sitting 02 Sat by Pulse Oximetry 96 97 97 Oxygen Delivery Method Room Air Room Air Room Air 09/05/23 12:00 09/05/23 12:10 Temperature Temperature Source Pulse Rate 83 80 Pulse Rate [Left Radial] Respiratory Rate 16 18 Blood Pressure 107/76 L 105/60 L Blood Pressure [Right Arm] Blood Pressure Mean 89 84 Blood Pressure Mean [Right Arm] Blood Pressure Source [Right Arm] Blood Pressure Position [Right Arm] 02 Sat by Pulse Oximetry 96 97 Oxygen Delivery Method Orders (Tests/Meds): ED MEDICATIONS Discontinued Medications Generic Name Dose Route Start Last Admin Trade Name Adrianq PRN Reason Stop Dose Admin Acetaminophen 1,000 mg 09/05/23 11:25 09/05/23 11:31 Acetaminophen 500mg Tab PO 09/05/23 11:26 1,000 mg ONCE ONE Administration Ibuprofen 600 mg 09/05/23 11:25 09/05/23 11:31 Ibuprofen 600 Mg Tablet PO 09/05/23 11:26 600 mg ONCE ONE Administration ORDERS Category Date Time Status Femur XR left 2 views [XR femur LT 2V] Stat Exams 09/05/23 11:25 Completed Hip XR left minimum 2 views [XR hip LT 2-3V w/pelvis] Exams 09/05/23 11:26 Completed Stat Knee XR left 2 views [XR knee LT 2V] Stat Exams 09/05/23 11:25 Completed Medical Decision Narrative: In summary patient is a 67-year-old male with past medical history described above who presents emergency department for evaluation of traumatic injury sustained in a fall. Patient is hemodynamically stable nontoxic-appearing upon arrival, afebrile, at his functional baseline. Differential diagnosis includes fracture, musculoskeletal strain, among others. Based on history and physical exam limited trauma survey will be conducted with plain film of the left hip, femur, knee. Initial interventions include Tylenol and ibuprofen. CT imaging of the spine and hip was considered however no trauma and no significant midline spinal tenderness will be deferred at this time. X-rays informally interpreted by me, no acute displaced fracture. 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 No acute fracture of the knee. Upon repeat evaluation patient was amatory bedside. Given this patient is appropriate for discharge at this time. Critical Care Critical Care Time Critical Care Time: No
[2023-09-05] MEDS: IBUPROFEN 600 MG TABLET PO (11:31)
[2023-09-05] MEDS: ACETAMINOPHEN 500MG TAB 1000 MG PO (11:31)
--- NOTE | 2023-09-05 11:32 | PC.NURSE ---
PT TO XR
--- NOTE | 2023-09-05 11:50 | PC.NURSE ---
provided pt with a warm blanket.
--- NOTE | 2023-09-05 11:53 | PC.NURSE ---
pt returned from radiology.
--- NOTE | 2023-09-05 12:25 | PC.NURSE ---
pt resting in bed. call light within reach. bed in lowest position. updated on plan of care. no questions or concerns voiced.
--- NOTE | 2023-09-05 13:39 | PC.NURSE ---
ATTEMPTED TO CALL [facility] TO LET THEM KNOW PT IS UP FOR DISCHARGE AND DIDN'T GET AN ANSWER. UNABLE TO LEAVE VOICEMAIL. WILL TRY AGAIN SHORTLY
--- NOTE | 2023-09-05 13:41 | PC.NURSE ---
kishore rivero [facility] contacted, will contact [facility]
--- NOTE | 2023-09-05 14:10 | PC.NURSE ---
CALLED [facility], INFORMED PT IS READY FOR DISCHARGE
--- NOTE | 2023-09-05 14:34 | PC.NURSE ---
PROVIDED PT WITH SOMETHING TO EAT AND DRINK WHILE WE WAITED ON [facility] TO PICK PT UP
--- NOTE | 2023-09-05 14:50 | PC.NURSE ---
ATTEMPTED TO REACH [facility] TO DISCHARGE PT, NO ANSWER
== END 2023-09-05 15:00 | disposition home or self-care (01) ==
PROVIDERS: Emergency Provider Emergency Medicine
DX: M25.562 Pain in left knee (principal); W18.30XA Fall on same level, unspecified, initial encounter
CPT/HCPCS: 73502; 73552; 73560; 99283

== ENCOUNTER 2023-11-10 09:58 | Emergency (ER) | payer MEDICARE, BC, SELFPAY ==
[2023-11-10 09:58] VITALS: BP 107/68; PULSE 84; PULSE 91; RESP 22; TEMP 36.7; O2SAT 96; BMI 22.4
[2023-11-10 10:43] VITALS: BP 112/69; PULSE 75; O2SAT 99
--- NOTE | 2023-11-10 10:44 | XR_ITS ---
PROCEDURE INFORMATION: Exam: XR Right Knee Exam date and time: 11/10/2023 10:47 AM Age: 68 years old Clinical indication: Pain; Knee; Right; Additional info: Knee pain TECHNIQUE: Imaging protocol: Radiologic exam of the right knee. Views: 3 views. COMPARISON: No relevant prior studies available. FINDINGS: Bones/joints: No acute fracture or malalignment. Mild tricompartmental degenerative changes. No joint effusion. Soft tissues: Normal. IMPRESSION: No acute fracture or malalignment.
--- NOTE | 2023-11-10 10:44 | XR_ITS ---
PROCEDURE INFORMATION: Exam: XR Left Knee Exam date and time: 11/10/2023 10:47 AM Age: 68 years old Clinical indication: Pain; Knee; Left; Additional info: Knee pain TECHNIQUE: Imaging protocol: Radiologic exam of the left knee. Views: 3 views. COMPARISON: CR XR KNEE LT 2V 09/05/2023 11:27 AM FINDINGS: Bones/joints: No acute fracture or malalignment. Mild tricompartmental degenerative changes. No joint effusion. Soft tissues: Normal. IMPRESSION: No acute fracture or malalignment.
--- NOTE | 2023-11-10 10:46 | HMH.EDGENADL ---
Discharge Plan Disposition Patient Disposition: Home, Self-Care Prescriptions Prescriptions: No Action multivitamin [Multi-Vitamin] Tablet 1 tab PO DAILY citalopram 10 mg Tablet 5 mg PO DAILY omeprazole 40 mg Capsule,Delayed Release(Dr/Ec) 40 mg PO DAILY haloperidol 10 mg Tablet 10 mg PO BID benztropine 1 mg Tablet 1 mg PO DAILY Referrals Follow up/Referrals: Provider,Referral, MD [Primary Care Provider] - See instructions Clinical Impressions Clinical Impression: Bilateral knee pain Print Language Print Language: Frisian Discharge ED Provider: Deric Flores General Adult HPI General Chief complaint: Extremity Injury, Lower Stated complaint: leg pain Time Seen by Provider: 11/10/23 10:42 Mode of Arrival: EMS Source of Information: Patient Limitations: No Limitations Description of Symptoms (Recalled from ER Triage Doc. by RN): Patient reports bilateral knee pain. Denies any falls or injuries to knees. History of Present Illness HPI narrative: Patient is a very poor historian who presents today from [place] today complaining of bilateral knee pain. He denies any symptoms other than pain specifically no history of trauma he cannot articulate anything else with regards to swelling fevers chills or any other circumstances surrounding this. States that his knees have been hurting. Related Data Home Medications ?Medication ?Instructions ?Recorded ?Confirmed benztropine 1 mg tablet 1 mg PO DAILY 05/02/23 05/02/23 citalopram 10 mg tablet 5 mg PO DAILY 05/02/23 05/02/23 haloperidol 10 mg tablet 10 mg PO BID 05/02/23 05/02/23 multivitamin 1 tab PO DAILY 05/02/23 05/02/23 omeprazole 40 mg capsule,delayed 40 mg PO DAILY 05/02/23 05/02/23 release Allergies Allergy/AdvReac Type Severity Reaction Status Date / Time No Known Allergies Allergy Verified 05/02/23 22:53 [facility] Disclaimer: The information contained in this section may have been updated after the patient was seen, as this information can be updated by other users. Social History (Updated 05/03/23 @ 01:40 by Myra Montes DO) Smoking Status: Current every day smoker alcohol intake: never current occupational status: unemployed Travel in the last 8 weeks: None ROS Obtained: Yes All systems reviewed & no additional complaints except as documented Physical Exam General General appearance: alert Respiratory Respiratory exam: Present normal lung sounds bilaterally Cardiovascular Cardiovascular exam: Present regular rate Extremities Exam Extremities exam: Present other (Bilateral knee exams are unremarkable externally appear normal no instability no significant soft tissue swelling ecchymosis evidence of infection etc.) Neurological Exam Neurological exam: Present alert and oriented X3 Medical Decision Making Ruddy Inquiry Pt receiving controlled substance: No Vital Signs: 11/10/23 09:58 11/10/23 09:58 Temperature 98.0 F Temperature Source Oral Pulse Rate 84 Pulse Rate [Radial] 91 H Respiratory Rate 22 Blood Pressure 107/68 L Blood Pressure [Right Arm] 107/68 L Blood Pressure Mean [Right Arm] 81 Blood Pressure Source [Right Arm] Automatic Cuff Blood Pressure Position [Right Arm] Supine 02 Sat by Pulse Oximetry 96 96 Oxygen Delivery Method Room Air Orders (Tests/Meds): ED MEDICATIONS Discontinued Medications Generic Name Dose Route Start Last Admin Trade Name Freq PRN Reason Stop Dose Admin Acetaminophen 1,000 mg 11/10/23 10:44 11/10/23 11:09 Acetaminophen 500mg Tab PO 11/10/23 10:45 1,000 mg ONCE ONE Administration ORDERS Category Date Time Status Knee XR left 3 views [XR knee LT 3V] Stat Exams 11/10/23 10:44 Completed Knee XR right 3 views [XR knee RT 3V] Stat Exams 11/10/23 10:44 Completed Medical Decision Narrative: Very poor historian as stated above with nontraumatic bilateral knee pain with normal external exam g
[2023-11-10 11:00] VITALS: BP 128/62; PULSE 78; O2SAT 98
[2023-11-10 11:35] VITALS: BP 166/139; PULSE 66; O2SAT 99
--- NOTE | 2023-11-10 11:49 | PC.NURSE ---
Attempted to call [facility] with no answer.
--- NOTE | 2023-11-10 12:19 | PC.NURSE ---
CALL [facility]IGHT WITHIN REACH. NO REQUESTS VOICED AT THIS TIME.
--- NOTE | 2023-11-10 12:28 | PC.NURSE ---
[facility] called stating they are looking for a [place] driver to come get pt.
[2023-11-10 13:09] VITALS: BP 118/79; PULSE 68; RESP 18; TEMP 36.7; O2SAT 98
== END 2023-11-10 13:20 | disposition home or self-care (01) ==
PROVIDERS: Emergency Provider Student in an Organized Health Care Education/Training Program
DX: M25.561 Pain in right knee (principal); M25.562 Pain in left knee; F17.200 Nicotine dependence, unspecified, uncomplicated
CPT/HCPCS: 73562; 99283

== ENCOUNTER 2023-12-24 13:11 | Emergency (ER) | payer MEDICARE, BC, SELFPAY ==
[2023-12-24 13:12] VITALS: BP 133/91; PULSE 51; RESP 16; TEMP 36.8; O2SAT 98; BMI 20.6
--- NOTE | 2023-12-24 13:15 | PC.NURSE ---
called [facility] and spoke to Irina who reported that the pt saw Avelino Lucas with psych yesterday. She also reports the pt is confused at baseline since his arrival to the facility last January but over the last few weeks has been increasingly confused and asking about his .
--- NOTE | 2023-12-24 13:16 | HMH.EDGENADL ---
Discharge Plan Disposition Patient Disposition: Home, Self-Care Condition: Good Prescriptions Prescriptions: No Action multivitamin [Multi-Vitamin] Tablet 1 tab PO DAILY citalopram 10 mg Tablet 5 mg PO DAILY omeprazole 40 mg Capsule,Delayed Release(Dr/Ec) 40 mg PO DAILY haloperidol 10 mg Tablet 10 mg PO BID benztropine 1 mg Tablet 1 mg PO DAILY Referrals Follow up/Referrals: Provider,Referral, MD [Primary Care Provider] - See instructions Activity Restrictions/Add. Instructions Additional Instructions/Restrictions: Please return with any new or worsening symptoms. Clinical Impressions Clinical Impression: Anxiety, Encounter for general medical examination Print Language Print Language: Ukrainian Discharge ED Provider: Dwayne Pollock Adult HPI General Chief complaint: Psychiatric Symptoms Stated complaint: AMS Time Seen by Provider: 12/24/23 13:15 History of Present Illness HPI narrative: Patient presents after being found by police reportedly entering someone else's car. After nursing discussion with external facility, he has reported history of unspecified cognitive disorder suspicious for dementia that has been gradually worsening over the past several months. Patient is alert and oriented to self and situation at this time. He denies any pain. He reports acute anxiety. He was reportedly trying to find his which prompted him entering someone else's car. He denies any falls. He denies any chest pain or shortness of breath. No reported intoxication. Additional history limited secondary to patient's mental status Please note that above description of symptoms, in this electronic medical record under categorization of recalled from ER triage doctor by RN are reflective of an initial nursing assessment, however, is not reflective of my full history and physical exam that was personally taken and clarified. Consequentially, this preceding description of symptoms, which may include the patient's categorized chief complaint in the EMR, do not reflect my personal clinical impression, and the ultimate description of history of present illness and patient stated complaints should be deferred to this section of the note. Unless stated otherwise or congruent with this section of the note, additional signs, symptoms, or incongruence should be interpreted as inaccurate with my clinical impression. Related Data Home Medications ?Medication ?Instructions ?Recorded ?Confirmed benztropine 1 mg tablet 1 mg PO DAILY 05/02/23 05/02/23 citalopram 10 mg tablet 5 mg PO DAILY 05/02/23 05/02/23 haloperidol 10 mg tablet 10 mg PO BID 05/02/23 05/02/23 multivitamin 1 tab PO DAILY 05/02/23 05/02/23 omeprazole 40 mg capsule,delayed 40 mg PO DAILY 05/02/23 05/02/23 release Allergies Allergy/AdvReac Type Severity Reaction Status Date / Time No Known Allergies Allergy Verified 05/02/23 22:53 [facility] Disclaimer: The information contained in this section may have been updated after the patient was seen, as this information can be updated by other users. Social History (Updated 05/03/23 @ 01:40 by Myra Montes DO) Smoking Status: Current every day smoker alcohol intake: never current occupational status: unemployed Travel in the last 8 weeks: None ROS Obtained: Yes other As per HPI Physical Exam General General appearance: alert and anxious Head Head exam: atraumatic and normocephalic Eye Eye exam: Present normal appearance Neck Neck exam: Present normal inspection Chest Chest inspection: Present normal inspection and symmetric chest wall rise Respiratory Respiratory exam: Present normal lung sounds bilaterally; Absent respiratory distress Cardiovascular Cardiovascular exam: Present regular rate and normal rhythm Abdominal Exam Abdominal exam: Present soft Neurological Exam Neurological exam: Present alert Psychiatric Psychiatric exam: Present normal affect and normal mood Skin Skin exam: Present warm and dry Medical Decision Making Medical Records Medical records reviewed: Yes I reviewed the patient's medical records. Screening: Per USPSTF and CDC recommendations, given the prevalence of disease in our region, it is our hospital?s policy to screen for HIV and viral Hepatitis for all patients aged 18 and over and those with ongoing risk factors. Ruddy Inquiry Pt receiving controlled substance: No Vital Signs: 12/24/23 13:12 12/24/23 13:30 12/24/23 14:01 Temperature 98.2 F Temperature Source Oral Pulse Rate 86 89 Pulse Rate [Left Radial] 51 L Respiratory Rate 16 Blood Pressure 139/72 111/56 L Blood Pressure [Right Arm] 133/91 H Blood Pressure Mean [Right Arm] 105 Blood Pressure Source [Right Arm] Automatic Cuff Blood Pressure Position [Right Arm] Sitting 02 Sat by Pulse Oximetry 98 95 99 Oxygen Delivery Method Room Air Room Air Room Air 12/24/23 17:32 Temperature 98.6 F Temperature Source Pulse Rate 65 Pulse Rate [Left Radial] Respiratory Rate 17 Blood Pressure 132/79 Blood Pressure [Right Arm] Blood Pressure Mean [Right Arm] Blood Pressure Source [Right Arm] Blood Pressure Position [Right Arm] 02 Sat by Pulse Oximetry Oxygen Delivery Method Room Air Lab Data Lab Results 12/24/23 14:20: WBC 12.8 H, RBC 4.25 L, Hgb 13.9 L, Hct 40.6 L, MCV 95.7 H, MCH 32.6 H, MCHC 34.1, RDW 13.0, Plt Count 331, MPV 7.1 L, Neut % (Auto) 74.0, Lymph % (Auto) 17.7, Knox % (Auto) 6.1, Eos % (Auto) 1.5, Baso % (Auto) 0.6, Neut # (Auto) 9.5 H, Lymph # (Auto) 2.3, Knox # (Auto) 0.8, Eos # (Auto) 0.2, Baso # (Auto) 0.1, Sodium 139, Potassium 4.3, Chloride 107, Carbon Dioxide 20 L, Anion Gap 16.3 H, BUN 20, Creatinine 1.10, Estimated Creat Clear 66, Estimated GFR 66, Est GFR ( Amer) 80, Glucose 87, Calcium 9.8, Magnesium 1.9, Total Bilirubin 0.6, AST 30, ALT 34, Alkaline Phosphatase 113, Total Protein 7.9, Albumin 4.4, Globulin 3.5 H, Albumin/Globulin Ratio 1.3, TSH 1.71, Free T4 1.08 12/24/23 14:20 12/24/23 14:20 Orders (Tests/Meds): ORDERS Category Date Time Status XR chest portable Stat Exams 12/24/23 13:58 Completed CBC w/Auto Diff [Complete Blood Count Auto Diff] Stat Lab 12/24/23 14:20 Completed CMP [Comprehensive Metabolic Panel] Stat Lab 12/24/23 14:20 Completed Free T4 (Free Thyroxine) Stat Lab 12/24/23 14:20 Completed MAG [Magnesium] Stat Lab 12/24/23 14:20 Completed TSH [Thyroid Stimulating Hormone] Stat Lab 12/24/23 14:20 Completed Medical Decision Narrative: Patient with history and exam per above presenting for evaluation of examination following episode of attempting to enter someone else's car. Diagnoses considered include chronic dementia, acute kidney injury, electrolyte abnormality. Low clinical index of suspicion for intracranial hemorrhage, patient denies any pain at this time. Nursing discussed case with external provider who saw patient yesterday reportedly. Patient is at baseline to my understanding at this time. He resides in a assisted living facility. ED workup and treatment included: ORDERS Category Date Time Status XR chest portable Stat Exams 12/24/23 13:58 Completed CBC w/Auto Diff [Complete Blood Count Auto Diff] Stat Lab 12/24/23 14:20 Completed CMP [Comprehensive Metabolic Panel] Stat Lab 12/24/23 14:20 Completed Free T4 (Free Thyroxine) Stat Lab 12/24/23 14:20 Completed MAG [Magnesium] Stat Lab 12/24/23 14:20 Completed TSH [Thyroid Stimulating Hormone] Stat Lab 12/24/23 14:20 Completed Labs were independently interpreted by me, significant for leukocytosis consistent with hemoconcentration. No other acute findings. Imaging was independently visualized and interpreted by me, significant for no acute findings Please refer to radiology report for full details. My clinical impression at this time is most consistent with episode related to chronic neurocognitive changes. He is deemed stable for discharge at this time to facility I discussed my clinical impression with patient and answered all questions. At this time, the evidence for any other entities in the differential is insufficient to warrant any further testing or ED observation. This was explained to the patient. The patient was advised that persistent or worsening symptoms require further evaluation. Critical Care Critical Care Time Critical Care Time: No
--- NOTE | 2023-12-24 13:20 | PC.NURSE ---
put a call out to Avelino Lucas with [facility]
[2023-12-24 13:30] VITALS: BP 139/72; PULSE 86; O2SAT 95
--- NOTE | 2023-12-24 13:30 | PC.NURSE ---
spoke with Avelino saunders APRN who stated he has been seeing the pt for the last year. He reports that at baseline the pt is alert to self and place and can usually hold a conversation and also recognizes who he is. He stated he saw the patient yesterday and he was talkative and denied any complaints. He also reported a mental decline over the last few weeks and suggested the patient PCP should evaluate him for COPD due to his abnormal breathing patterns.
--- NOTE | 2023-12-24 13:58 | XR_ITS ---
FINAL REPORT CLINICAL HISTORY: Shortness of breath COMPARISON: None FINDINGS: A single portable view of the chest was obtained. The heart size and pulmonary vascularity are within normal limits. The mediastinum is within normal limits. No acute pulmonary abnormality is identified. The bony thorax is intact. IMPRESSION: No active cardiopulmonary disease. Reviewed, Interpreted and Dictated by Ge Forbes III, MD Transcribed by Joanne Mckenna Authenticated and . [facility]
[2023-12-24 14:01] VITALS: BP 111/56; PULSE 89; O2SAT 99
--- NOTE | 2023-12-24 14:04 | ECG_ITS ---
APPROVED REPORT Exam: Resting ECG HR:75 bpm ECG Measurements Heart Rate 75 AXES CO 154 P 76 QRSd 73 QRS 30 QT 396 T 60 QTc 425 Conclusion SINUS RHYTHM NORMAL ECG Electronically signed by : ITZEL FELTON, 12/25/2023 23:00:29
--- NOTE | 2023-12-24 14:09 | PC.NURSE ---
RAD at BS for xray
[2023-12-24 14:46] LABS: Albumin Level 4.4 g/dl (3.5-5.0); Chloride 107 mmol/L (98-107); Sodium 139 mmol/L (136-145)
[2023-12-24 14:47] LABS: Potassium 4.3 mmoL/L (3.5-5.1)
[2023-12-24 14:49] LABS: Alanine Aminotransferase 34 U/L (12-78); Albumin/Globulin Ratio 1.3 (1.1-1.8); Alkaline Phosphatase 113 U/L (38-126); Anion Gap 16.3 mEq/L (5-15); Aspartate Amino Transferase 30 U/L (17-59); Bilirubin,Total 0.6 mg/dl (0.2-1.3); Blood Urea Nitrogen 20 mg/dl (9-20); Carbon Dioxide 20 mmol/L (22.0-30.0); Creatinine Clearance Estimated 66 mL/min (50-200); Estimated Glomerular Filt Rate 66 ml/min (>60); GFR (African American) 80 ML/MIN (>60); Globulin 3.5 g/dL (1.3-3.2); Total Protein,Serum 7.9 g/dl (6.3-8.2)
[2023-12-24 14:50] LABS: Basophils # 0.1 K/mm3 (0-0.2); Basophils % 0.6 % (0.1-2.0); Calcium 9.8 mg/dl (8.4-10.2); Eosinophils # 0.2 K/mm3 (0.0-0.4); Eosinophils % 1.5 % (0.1-12.0); Glucose 87 mg/dl (74-100); Hematocrit 40.6 % (42.0-52.0); Hemoglobin 13.9 g/dL (14.1-18.0); Lymphocytes # 2.3 K/mm3 (0.7-4.5); Lymphocytes % 17.7 % (10-50); Mean Corpuscular HGB Conc 34.1 g/dL (31.8-35.4); Mean Corpuscular Hemoglobin 32.6 pg (27.0-31.2); Mean Corpuscular Volume 95.7 fl (80-94); Mean Platelet Volume 7.1 fl (7.4-10.4); Monocytes # 0.8 K/mm3 (0.1-1.0); Monocytes % 6.1 % (1.7-9.3); Neutrophils # 9.5 K/mm3 (1.8-7.8); Platelet Count 331 K/mm3 (142-424); Red Blood Count 4.25 M/mm3 (4.60-6.20); White Blood Count 12.8 K/mm3 (4.8-10.8)
[2023-12-24 15:07] LABS: Magnesium 1.9 mg/dl (1.6-2.3)
[2023-12-24 15:20] LABS: Thyroid Stimulating Hormone 1.71 uIU/mL (0.465-4.68)
[2023-12-24 15:25] LABS: Free T4 (Free Thyroxine) 1.08 ng/dl (0.78-2.19)
--- NOTE | 2023-12-24 16:46 | PC.NURSE ---
pt given a bath and change of clothes at this time
--- NOTE | 2023-12-24 17:01 | PC.NURSE ---
waiting on ride for patient
[2023-12-24 17:32] VITALS: BP 132/79; PULSE 65; RESP 17; TEMP 37; O2SAT 98
== END 2023-12-24 17:34 | disposition home or self-care (01) ==
PROVIDERS: Emergency Provider Emergency Medicine
DX: Z00.00 Encounter for general adult medical examination without abnormal findings (principal); R41.82 Altered mental status, unspecified; F41.9 Anxiety disorder, unspecified
CPT/HCPCS: 71045; 80053; 83735; 84439; 84443; 85025; 93005; 99283

== ENCOUNTER 2024-07-08 12:20 | Emergency (ER) | payer MEDICARE, MEDICAID, SELFPAY ==
[2024-07-08 12:27] VITALS: BP 105/70; PULSE 65; RESP 16; TEMP 36.7; O2SAT 100; BMI 24.3
[2024-07-08 12:29] VITALS: BP 99/54; PULSE 65; RESP 14; O2SAT 96
--- NOTE | 2024-07-08 12:32 | ECG_ITS ---
APPROVED REPORT Exam: Resting ECG HR:64 bpm ECG Measurements Heart Rate 64 AXES MD 153 P 66 QRSd 77 QRS 38 QT 386 T 75 QTc 396 Conclusion Sinus rhythm Electronically signed by : RADHA HARMAN, 07/09/2024 07:19:03
--- NOTE | 2024-07-08 12:34 | CT_ITS ---
FINAL REPORT TECHNIQUE: Thin section axial images were obtained from the lung apices through the upper abdomen without contrast. This study was performed with techniques to keep radiation doses as low as reasonably achievable (ALARA). Individualized dose reduction techniques using automated exposure control or adjustment of mA and/or kV according to the patient's size were employed. CLINICAL HISTORY: fall, AMS tachypnea COMPARISON: None FINDINGS: There is no mediastinal, hilar, or axillary lymphadenopathy. No pleural or pericardial effusion. Ascending aortic aneurysm measures 40 mm. The heart is normal. Emphysematous changes are noted. There is granulomatous disease. The lungs are otherwise clear. No pneumothorax. Limited, unenhanced evaluation of the upper abdomen is without acute abnormality. There is no acute osseous abnormality. IMPRESSION: No acute intrathoracic abnormality. Ascending aortic aneurysm. Reviewed, Interpreted and Dictated by Jacquelyn Karimi MD Transcribed by Violette Piedra Authenticated and [facility]
--- NOTE | 2024-07-08 12:34 | CT_ITS ---
FINAL REPORT TECHNIQUE: Axial images through the pelvis were performed by computed tomography. Sagittal and coronal reconstruction images were performed. This study was performed with techniques to keep radiation doses as low as reasonably achievable (ALARA). Individualized dose reduction techniques using automated exposure control or adjustment of mA and/or kV according to the patient's size were employed. CLINICAL HISTORY: fall, AMS, previous fracture COMPARISON: None FINDINGS: There is no acute fracture of the pelvis or either hip. There are postoperative changes from prior ORIF of the left femoral neck. Degenerative joint disease is noted of the hips bilaterally. There is no acute soft tissue abnormality. IMPRESSION: No acute osseous abnormality of the pelvis or hips. Prior ORIF. Reviewed, Interpreted and Dictated by Jacquelyn Karimi MD Transcribed by Violette Piedra Authenticated and . [facility]
--- NOTE | 2024-07-08 12:34 | CT_ITS ---
FINAL REPORT TECHNIQUE: Thin section axial images were obtained from skull base to vertex without contrast. Coronal reconstruction images were obtained from the axial data. Exam was performed using dose reduction techniques such as automated exposure control, adjustment of the mA and kV according to patient size, and use of iterative reconstruction technique. CLINICAL HISTORY: fall, AMS COMPARISON: None FINDINGS: There is atrophy. No mass effect or midline shift. No intracranial hemorrhage. No hydrocephalus. Periventricular low density is likely related to changes of chronic small vessel ischemia. The basilar cisterns are preserved. The posterior fossa is without acute abnormality. Mucoperiosteal thickening is noted of the sphenoid sinus. The soft tissues otherwise without acute abnormality. Multiple dental caries are noted. No acute osseous abnormality is identified. IMPRESSION: No acute intracranial abnormality. Atrophy and changes suggesting chronic small vessel ischemia. Reviewed, Interpreted and Dictated by Jacquelyn Karimi MD Transcribed by Violette Piedra Authenticated and . [facility]
--- NOTE | 2024-07-08 12:34 | CT_ITS ---
FINAL REPORT TECHNIQUE: Thin section axial images were obtained through the cervical spine without contrast. Multiplanar reconstruction images were obtained from the axial data. Exam was performed using dose reduction techniques. CLINICAL HISTORY: fall, AMS COMPARISON: None FINDINGS: There is no acute fracture or acute malalignment of the cervical spine. No acute fracture. There is no evidence of unilateral or bilateral facet lock. Craniocervical junction is intact. There is multilevel degenerative disc disease which is most pronounced at C5-6 and C6-7. No acute paraspinal abnormality is identified. IMPRESSION: No acute osseous abnormality of the cervical spine. Reviewed, Interpreted and Dictated by Jacquelyn Karimi MD Transcribed by Violette Piedra Authenticated and [facility]
[2024-07-08 12:42] LABS: Basophils # 0.1 K/mm3 (0-0.2); Basophils % 0.8 % (0.1-2.0); Eosinophils # 0.3 Kmm3 (0.0-0.4); Eosinophils % 4.5 % (0.1-12.0); Hematocrit 37.6 % (42.0-52.0); Hemoglobin 12.6 g/dL (14.1-18.0); Lymphocytes % 27.5 % (10-50); Mean Corpuscular HGB Conc 33.5 g/dL (31.8-35.4); Mean Corpuscular Hemoglobin 32.4 pg (27.0-31.2); Mean Corpuscular Volume 96.7 fl (80-94); Mean Platelet Volume 9.3 fl (7.4-10.4); Monocytes # 0.7 K/mm3 (0.1-1.0); Monocytes % 9.2 % (1.7-9.3); Neutrophils # 4.2 K/mm3 (1.8-7.8); Neutrophils % 56.6 % (37.0-80.0); Nucleated Red Blood Cells # 0 10^3/uL; Nucleated Red Blood Cells % 0 %; Platelet Count 255 K/mm3 (142-424); Red Blood Count 3.89 M/mm3 (4.60-6.20); Red Cell Distribution Width 12.4 % (11.5-17.5); Red Cell Distribution Width-SD 43.9 fL; White Blood Count 7.4 K/mm3 (4.8-10.8)
[2024-07-08 12:45] VITALS: BP 111/61; PULSE 60; RESP 16; O2SAT 96
--- NOTE | 2024-07-08 12:45 | ED_ITS ---
Discharge Plan Disposition Patient Disposition: Home, Self-Care Chief Complaint: Fall Prescriptions Prescriptions: No Action multivitamin [Multi-Vitamin] Tablet 1 tab PO DAILY citalopram 10 mg Tablet 5 mg PO DAILY omeprazole 40 mg Capsule,Delayed Release(Dr/Ec) 40 mg PO DAILY haloperidol 10 mg Tablet 10 mg PO BID benztropine 1 mg Tablet 1 mg PO DAILY Referrals Follow up/Referrals: Provider,Referral, MD [Primary Care Provider] - See instructions Activity Restrictions/Add. Instructions Additional Instructions/Restrictions: Call your family doctor to establish care for this visit to the emergency department and schedule follow-up within 48 hours to ensure improvement. If you have any worsening of your condition or any other concerning signs or symptoms, return to the emergency department or your primary care doctor for further evaluation. Clinical Impressions Clinical Impression: Accident due to mechanical fall without injury Qualifiers: Encounter type: initial encounter Qualified Code(s): W19.XXXA - Unspecified fall, initial encounter Print Language Print Language: Nicaraguan Discharge ED Provider: Carlos Eduardo Bennett General Adult HPI General Chief complaint: Fall Stated complaint: Fall Time Seen by Provider: 07/08/24 12:23 Mode of Arrival: EMS Source of Information: Patient and EMS Description of Symptoms (Recalled from ER Triage Doc. by RN): Reports falling this morning. No complaints from the patient at this time. History of Present Illness HPI narrative: Please note that above description of symptoms, in this electronic medical record under categorization of recalled from ER triage doctor by RN are reflective of an initial nursing assessment, however, is not reflective of my full history and physical exam that was personally taken and clarified. Consequentially, this preceding description of symptoms, which may include the patient's categorized chief complaint in the EMR, do not reflect my personal clinical impression, and the ultimate description of history of present illness and patient stated complaints should be deferred to this section of the note. Unless stated otherwise or congruent with this section of the note, additional signs, symptoms, or incongruence should be interpreted as inaccurate with my clinical impression. Related Data Home Medications ?Medication ?Instructions ?Recorded ?Confirmed benztropine 1 mg tablet 1 mg PO DAILY 05/02/23 05/02/23 citalopram 10 mg tablet 5 mg PO DAILY 05/02/23 05/02/23 haloperidol 10 mg tablet 10 mg PO BID 05/02/23 05/02/23 multivitamin 1 tab PO DAILY 05/02/23 05/02/23 omeprazole 40 mg capsule,delayed 40 mg PO DAILY 05/02/23 05/02/23 release Allergies Allergy/AdvReac Type Severity Reaction Status Date / Time No Known Allergies Allergy Verified 05/02/23 22:53 [facility] Disclaimer: The information contained in this section may have been updated after the patient was seen, as this information can be updated by other users. Social History (Updated 05/03/23 @ 01:40 by Myra Montes DO) Smoking Status: Current every day smoker alcohol intake: never current occupational status: unemployed Travel in the last 8 weeks: None Have you lived/traveled outside US in past 30 days?: No Contact w/someone who lives/traveled outside US past 30 days?: No Exposure to someone with infectious disease in past 14 days?: No Do you have a fever (greater than 100.4 F or 38 C)?: No Have you tested positive for COVID-19: No Exposed to someone with COVID-19 in past 14 days?: No Do you have a sore throat?: No Do you have a cough?: No Do you have any weakness?: No Do you have any diarrhea?: No Are you experiencing any unusual bleeding?: No Do you have any muscle aches/pain?: No Do you have any abdominal pain?: No Are you experiencing loss of taste or smell?: No ROS Obtained: Yes All systems reviewed & no additional complaints except as documented Physical Exam General General appearance: alert Head Head exam: atraumatic and normocephalic Eye Eye exam: Present normal appearance, PERRL and EOMI Neck Neck exam: Present normal inspection, full ROM and trachea midline Respiratory Respiratory exam: Absent respiratory distress, wheezes, stridor, accessory muscle use or prolonged expiratory phase Cardiovascular Cardiovascular exam: Present regular rate, normal rhythm and other (Pulses equal symmetric in upper and lower extremities) Abdominal Exam Abdominal exam: Present soft; Absent distention, tenderness or pulsatile mass Extremities Exam Extremities exam: Absent edema Neurological Exam Neurological exam: Present alert, oriented X3 and CN II-XII intact; Absent motor sensory deficit Skin Skin exam: Present warm and dry; Absent diaphoresis or erythema Medical Decision Making Medical Records Medical records reviewed: Yes I reviewed the patient's medical records. Screening: Per USPSTF and CDC recommendations, given the prevalence of disease in our region, it is our hospital?s policy to screen for HIV and viral Hepatitis for all patients aged 18 and over and those with ongoing risk factors. Ruddy Inquiry Pt receiving controlled substance: No Ruddy was queried for this patient: No Vital Signs: 07/08/24 12:27 07/08/24 12:29 07/08/24 12:45 Temperature 98.0 F Temperature Source Oral Pulse Rate 65 60 Pulse Rate [Radial] 65 Respiratory Rate 16 14 16 Blood Pressure 99/54 L 111/61 Blood Pressure [Right Arm] 105/70 L Blood Pressure Mean [Right Arm] 81 Blood Pressure Source [Right Arm] Automatic Cuff Blood Pressure Position [Right Arm] Sitting 02 Sat by Pulse Oximetry 100 96 96 Oxygen Delivery Method Room Air 07/08/24 13:15 Temperature Temperature Source Pulse Rate 57 L Pulse Rate [Radial] Respiratory Rate Blood Pressure 105/44 L Blood Pressure [Right Arm] Blood Pressure Mean [Right Arm] Blood Pressure Source [Right Arm] Blood Pressure Position [Right Arm] 02 Sat by Pulse Oximetry 97 Oxygen Delivery Method Lab Data Lab Results 07/08/24 12:30: WBC 7.4, RBC 3.89 L, Hgb 12.6 L, Hct 37.6 L, MCV 96.7 H, MCH 32.4 H, MCHC 33.5, RDW 12.4, Plt Count 255, MPV 9.3, Neut % (Auto) 56.6, Lymph % (Auto) 27.5, [place] % (Auto) 9.2, Eos % (Auto) 4.5, Baso % (Auto) 0.8, Neut # (Auto) 4.2, Lymph # (Auto) 2.0, [place] # (Auto) 0.7, Eos # (Auto) 0.3, Baso # (Auto) 0.1, Sodium 142, Potassium 4.2, Chloride 105, Carbon Dioxide 27, Anion Gap 14.2, BUN 20, Creatinine 1.10, Estimated Creat Clear 64, Estimated GFR 66, Est GFR ( Amer) 80, Glucose 89, Calcium 9.3, Total Bilirubin 0.7, AST 22, ALT 22, Alkaline Phosphatase 99, Total Protein 7.3, Albumin 4.1, Globulin 3.2, Albumin/Globulin Ratio 1.3, HCV Ab HERLINDA w/Rflx PCR Qn Negative 07/08/24 12:30 07/08/24 12:30 Orders (Tests/Meds): ED MEDICATIONS Generic Name Dose Route Start Last Admin Trade Name Freq PRN Reason Stop Dose Admin Sodium Chloride 1,000 mls @ 999 mls/hr 07/08/24 13:42 07/08/24 13:47 Sod Chlor 0.9% 1000ml Bag IV 07/08/24 14:42 999 mls/hr .Q1H1M ONE Administration ORDERS Category Date Time Status CT bony pelvis Stat Cat Scan 07/08/24 12:[address] cervical spine wo con Stat Cat Scan 07/08/24 12:[address] chest wo con Stat Cat Scan 07/08/24 12:[address] head/brain wo con Stat Cat Scan 07/08/24 12:34 Completed CBC w/Auto Diff [Complete Blood Count Auto Diff] Stat Lab 07/08/24 12:30 Completed CMP [Comprehensive Metabolic Panel] Stat Lab 07/08/24 12:30 Completed HIV Combo Stat Lab 07/08/24 12:30 Received Hepatitis C Ab Qual. W/ RFX Stat Lab 07/08/24 12:30 Completed Medical Decision Narrative: 68-year-old male history of hypertension, hyperlipidemia, paranoid schizophrenia, left hip ORIF presenting with fall. Patient was brought in by EMS. EMS states that he lives at [facility], they called out because patient had a fall. EMS arrived and patient was sitting on the floor against the wall with multiple sweaters and winter coat on sweating. Able to stand him up, walk to the stretcher, patient had no difficulty doing this. Brought in for further evaluation. History was obtained via conversation with patient and EMS. On arrival, patient hemodynamically stable, alert, oriented x4, appropriate, GCS 15, moving all extremities spontaneously, pupils equal and reactive to light. Full physical exam performed and significant for chronically ill-appearing male who is in no acute distress. Lungs are clear, nontachypneic, nontachycardic. Abdomen is soft, nontender, nondistended. Extremities are atraumatic and nontender. Pelvis is stable. Upper extremity strength intact bilaterally. Range of motion of hips intact. Differential includes intracranial hemorrhage, cervical spine injury, pelvis or hip injury, rib fractures, among others. Patient placed on continuous cardiac monitoring and continuous pulse ox with initial blood pressure 105/70, heart rate 65, saturation 100% on room air. Independent interpretation of EKG shows sinus rhythm 64 bpm with AK interval 153, QRS 77, QTc 396 with no acute ischemic changes. Nonspecific T wave abnormalities. Patient given fluids for mildly hypotensive pressures, although labs unconcerning for any underlying addressable pathology. Patient also has blood pressures similar to this on previous visits. Imaging obtained. On independent interpretation, no intracranial hemorrhage and no acute cervical spine injury, although there is significant motion artifact. Given patient presentation, workup, history, this most likely represents mechanical fall from standing without injury. Because patient at baseline without signs or symptoms of clinical decompensation, deemed appropriate for discharge. Results were relayed to patient who voiced understanding and were agreeable to outpatient management and follow up. I discussed my clinical impression with patient and answered all questions. At this time, the evidence for any other entities in the differential is insufficient to warrant any further testing or ED observation. This was explained as well. Advisory was given that persistent or worsening symptoms require further evaluation. I confirmed the understanding of this discussion. Lesson Instructor disclaimer Much of this encounter note is an electronic saw operator spoken language to printed text. Electronic saw operator of the spoken language may permit errors. Although I have reviewed the note, some errors may still exist. Critical Care Critical Care Time Critical Care Time: No
[2024-07-08 12:50] LABS: Alanine Aminotransferase 22 U/L (12-78); Albumin Level 4.1 g/dl (3.5-5.0); Albumin/Globulin Ratio 1.3 (1.1-1.8); Alkaline Phosphatase 99 U/L (38-126); Anion Gap 14.2 mEq/L (5-15); Aspartate Amino Transferase 22 U/L (17-59); Bilirubin,Total 0.7 mg/dl (0.2-1.3); Blood Urea Nitrogen 20 mg/dl (9-20); Calcium 9.3 mg/dl (8.4-10.2); Carbon Dioxide 27 mmol/L (22.0-30.0); Chloride 105 mmol/L (98-107); Creatinine Clearance Estimated 64 mL/min (50-200); Estimated Glomerular Filt Rate 66 ml/min (>60); GFR (African American) 80 ML/MIN (>60); Globulin 3.2 g/dL (1.3-3.2); Glucose 89 mg/dl (74-100); Potassium 4.2 mmoL/L (3.5-5.1); Sodium 142 mmol/L (136-145); Total Protein,Serum 7.3 g/dl (6.3-8.2)
[2024-07-08 13:15] VITALS: BP 105/44; PULSE 57; O2SAT 97
--- NOTE | 2024-07-08 13:32 | PC.NURSE ---
I rounded on the pt. He is resting with his eyes closed at this time. call mary in reach.
--- NOTE | 2024-07-08 13:42 | PC.NURSE ---
I notified of pts hypotensive status. He is going to order some IV fluids.
[2024-07-08 13:43] LABS: Hepatitis C Ab Qual. W/ RFX NEGATIVE (Negative)
[2024-07-08] MEDS: 0.9 % SODIUM CHLORIDE 1000ML 1,000 ML 999 ML IV (13:47)
--- NOTE | 2024-07-08 14:32 | PC.NURSE ---
called [facility] to let them know patient is ready for discharge
[2024-07-08 14:46] VITALS: BP 104/74; PULSE 56; RESP 16; TEMP 36.7; O2SAT 99
[2024-07-09 11:55] LABS: HIV Combo NEGATIVE (Negative)
== END 2024-07-08 14:46 | disposition home or self-care (01) ==
PROVIDERS: Emergency Provider Emergency Medicine
DX: Z04.3 Encounter for examination and observation following other accident (principal); W19.XXXA Unspecified fall, initial encounter; Z11.59 Encounter for screening for other viral diseases; Z11.4 Encounter for screening for human immunodeficiency virus [HIV]
CPT/HCPCS: 70450; 71250; 72125; 72192; 80053; 85025; 86803; 87389; 93005; 96360; 99285; J7030

== ENCOUNTER 2024-08-07 10:52 | Emergency (ER) | payer MEDICARE, MEDICAID, SELFPAY ==
[2024-08-07 10:59] VITALS: BP 98/63; PULSE 80; RESP 18; TEMP 36.6; O2SAT 97; BMI 25.7
--- NOTE | 2024-08-07 12:06 | HMH.EDGENADL ---
Discharge Plan Disposition Patient Disposition: Home, Self-Care Condition: Good Prescriptions Prescriptions: No Action multivitamin [Multi-Vitamin] Tablet 1 tab PO DAILY citalopram 10 mg Tablet 5 mg PO DAILY omeprazole 40 mg Capsule,Delayed Release(Dr/Ec) 40 mg PO DAILY haloperidol 10 mg Tablet 10 mg PO BID benztropine 1 mg Tablet 1 mg PO DAILY Referrals Follow up/Referrals: Provider,Referral, MD [Primary Care Provider] - See instructions Activity Restrictions/Add. Instructions Additional Instructions/Restrictions: If you have any persistent new or worsening signs or symptoms follow-up with your PCP or return to the ER as needed. Clinical Impressions Clinical Impression: Fall Qualifiers: Encounter type: initial encounter Qualified Code(s): W19.XXXA - Unspecified fall, initial encounter Instructions Patient Instructions: How to Prevent Falls Print Language Print Language: Spanish Discharge ED Provider: Yao Lewis Adult HPI <NAHUM Dobbs - Last Filed: 08/07/24 19:16> General Chief complaint: Fall Stated complaint: Fall Time Seen by Provider: 08/07/24 12:06 Mode of Arrival: EMS Source of Information: Patient and EMS Description of Symptoms (Recalled from ER Triage Doc. by RN): pt states he fell this am but has no pain and no complaints. pt arrived via EMS in a [facility]. no LOC. pt is a [place] resident and it is their protocol to send with any fall. pt is A&O X4. per [place] pt is at his baseline. History of Present Illness HPI narrative: Patient presents for evaluation of a fall. Apparently patient was found sitting on the ground and stated he was too weak to get up. He denies any pain in any extremity denies hitting his head or losing consciousness. Currently denies chest pain shortness of breath fever chills mops his hematochezia melena nausea vomiting diarrhea. He cannot explain however why he fell other than his knees are weak . Related Data Home Medications ?Medication ?Instructions ?Recorded ?Confirmed benztropine 1 mg tablet 1 mg PO DAILY 05/02/23 05/02/23 citalopram 10 mg tablet 5 mg PO DAILY 05/02/23 05/02/23 haloperidol 10 mg tablet 10 mg PO BID 05/02/23 05/02/23 multivitamin 1 tab PO DAILY 05/02/23 05/02/23 omeprazole 40 mg capsule,delayed 40 mg PO DAILY 05/02/23 05/02/23 release Allergies Allergy/AdvReac Type Severity Reaction Status Date / Time No Known Allergies Allergy Verified 08/07/24 11:03 [facility] <NAHUM Dobbs - Last Filed: 08/07/24 19:16> [facility] Disclaimer: The information contained in this section may have been updated after the patient was seen, as this information can be updated by other users. Social History (Updated 05/03/23 @ 01:40 by Myra Montes DO) Smoking Status: Current every day smoker alcohol intake: never current occupational status: unemployed Travel in the last 8 weeks?: None Have you lived/traveled outside US in past 30 days?: No Contact w/someone who lives/traveled outside US past 30 days?: No Exposure to someone with infectious disease in past 14 days?: No Do you have a fever (greater than 100.4 F or 38 C)?: No Have you tested positive for COVID-19?: No Exposed to someone with COVID-19 in past 14 days?: No Do you have a sore throat?: No Do you have a cough?: No Do you have any weakness?: No Do you have any diarrhea?: No Are you experiencing any unusual bleeding?: No Do you have any muscle aches/pain?: No Do you have any abdominal pain?: No Are you experiencing loss of taste or smell?: No <NAHUM Dobbs - Last Filed: 08/07/24 19:16> ROS Obtained: Yes Systems reviewed as appropriate & no additional complaints except as documented Physical Exam <NAHUM Dobbs - Last Filed: 08/07/24 19:16> General General appearance: alert and in no apparent distress Respiratory Respiratory exam: Present normal lung sounds bilaterally Cardiovascular Cardiovascular exam: Present regular rate Neurological Exam Neurological exam: Present alert and oriented X3 Medical Decision Making <NAHUM Dobbs - Last Filed: 08/07/24 19:16> Medical Records Medical records reviewed: Yes I reviewed the patient's medical records. Screening: Per USPSTF and CDC recommendations, given the prevalence of disease in our region, it is our hospital?s policy to screen for HIV and viral Hepatitis for all patients aged 18 and over and those with ongoing risk factors. Ruddy Inquiry Pt receiving controlled substance: No Vital Signs: 08/07/24 10:59 08/07/24 13:34 Temperature 97.8 F 98.1 F Temperature Source Oral Pulse Rate 63 Pulse Rate [Left] 80 Respiratory Rate 18 18 Blood Pressure 122/56 L Blood Pressure [Right Arm] 98/63 L Blood Pressure Mean [Right Arm] 74 Blood Pressure Source Automatic Cuff Blood Pressure Source [Right Arm] Automatic Cuff Blood Pressure Position Sitting Blood Pressure Position [Right Arm] Sitting 02 Sat by Pulse Oximetry 97 Oxygen Delivery Method Room Air Room Air Orders (Tests/Meds): ORDERS Category Date Time Status CT cervical spine wo con Stat Cat Scan 08/07/24 12:[address] head/brain wo con Stat Cat Scan 08/07/24 12:34 Completed Medical Decision Narrative: In summary patient is a 68-year-old male who presents to the emergency department for evaluation of possible fall. Patient is initially hypotensive on arrival with a blood pressure 98/63 heart rate 80 with normal sinus rhythm on the bedside monitor breathing 18 times a minute satting at 97% on room air upon arrival, afebrile at 97.8. Physical exam is remarkable for [place] Coma Scale score of 15 patient is awake alert and oriented person place circumstance cranial nerves II through XII intact grossly to exam patient has no evidence of trauma on primary or secondary survey with no contusions abrasions deformities. Patient moves all 4 extremities has no focal neurologic deficits. Patient is cleared by [place] C-spine and head injury rules. Differential diagnosis includes fall versus head injury versus spinal fracture versus no injury. Initial workup will be conducted with CT scan of the head and neck. Initial interventions were considered with Tylenol ibuprofen however patient denies any complaints denies any pain and is hemodynamically stable thus initial interventions deferred for now initial workup reviewed by me and my informed rotation of his imaging shows no acute fracture or abnormality prior to radiology read. Please see final read for formal interpretation. Upon repeat evaluation patient remains with a [place] Coma Score 15 is able to ambulate under his own power without assistance in the emergency department and continues to deny any injury. Given this patient is appropriate for discharge back to personal-jail with strict return precautions. Patient verbalized understanding and agreement. <Yao Lewis MD - Last Filed: 08/07/24 20:29> Vital Signs: 08/07/24 10:59 08/07/24 13:34 Temperature 97.8 F 98.1 F Temperature Source Oral Pulse Rate 63 Pulse Rate [Left] 80 Respiratory Rate 18 18 Blood Pressure 122/56 L Blood Pressure [Right Arm] 98/63 L Blood Pressure Mean [Right Arm] 74 Blood Pressure Source Automatic Cuff Blood Pressure Source [Right Arm] Automatic Cuff Blood Pressure Position Sitting Blood Pressure Position [Right Arm] Sitting 02 Sat by Pulse Oximetry 97 Oxygen Delivery Method Room Air Room Air Orders (Tests/Meds): ORDERS Category Date Time Status CT cervical spine wo con Stat Cat Scan 08/07/24 12:[address] head/brain wo con Stat Cat Scan 08/07/24 12:34 Completed Medical Decision Narrative: In summary patient is a 68-year-old male who presents to the emergency department for evaluation of possible fall. Patient is initially hypotensive on arrival with a blood pressure 98/63 heart rate 80 with normal sinus rhythm on the bedside monitor breathing 18 times a minute satting at 97% on room air upon arrival, afebrile at 97.8. Physical exam is remarkable for [place]ij[place] Coma Scale score of 15 patient is awake alert and oriented person place circumstance cranial nerves II through XII intact grossly to exam patient has no evidence of trauma on primary or secondary survey with no contusions abrasions deformities. Patient moves all 4 extremities has no focal neurologic deficits. Patient is cleared by [place] C-spine and head injury rules. Differential diagnosis includes fall versus head injury versus spinal fracture versus no injury. Initial workup will be conducted with CT scan of the head and neck. Initial interventions were considered with Tylenol ibuprofen however patient denies any complaints denies any pain and is hemodynamically stable thus initial interventions deferred for now initial workup reviewed by me and my informed rotation of his imaging shows no acute fracture or abnormality prior to radiology read. Please see final read for formal interpretation. Upon repeat evaluation patient remains with a Vijay Coma Score 15 is able to ambulate under his own power without assistance in the emergency department and continues to deny any injury. Given this patient is appropriate for discharge back to personal-jail with strict return precautions. Patient verbalized understanding and agreement. I was consulted by the LUIS, and we discussed the complexity of the problems being addressed. I approve the treatment and management plan for this patient's care in the emergency department, thus performing a substantive portion of the medical decision making. Yao Lewis MD Critical Care <NAHUM Dobbs - Last Filed: 08/07/24 19:16> Critical Care Time Critical Care Time: No
--- NOTE | 2024-08-07 12:34 | CT_ITS ---
FINAL REPORT TECHNIQUE: Thin section axial CT with sagittal reconstruction without contrast This study was performed with techniques to keep radiation doses as low as reasonably achievable, (ALARA). Individualized dose reduction techniques using automated exposure control or adjustment of mA and/or kV according to the patient''s size were employed. CLINICAL HISTORY: Fall no apparent injury COMPARISON: 07/08/2024 FINDINGS: There is advanced degenerative disc disease in the mid and lower cervical spine. There is no evidence of fracture. There is no malalignment. Bony neural foraminal narrowing is noted at C4-5, C5-6, and C6-7. IMPRESSION: No acute findings. Reviewed, Interpreted and Dictated by Radha Neal MD Transcribed by Violette Piedra Authenticated and [facility]
--- NOTE | 2024-08-07 12:34 | CT_ITS ---
FINAL REPORT TECHNIQUE: Noncontrast exam This study was performed with techniques to keep radiation doses as low as reasonably achievable, (ALARA). Individualized dose reduction techniques using automated exposure control or adjustment of mA and/or kV according to the patient''s size were employed. CLINICAL HISTORY: Fall no apparent injury COMPARISON: 07/08/2024 FINDINGS: Mild generalized atrophy and chronic microvascular changes are noted. No cortical edema is present. There is no mass or hemorrhage. Ventricles are normal. Bone windows show no skull fracture or obvious obstructive lesion. IMPRESSION: 1. No acute intracranial abnormality or obvious mass. 2. Atrophy and chronic ischemic white matter changes as above. Reviewed, Interpreted and Dictated by Radha Neal MD Transcribed by Violette Piedra Authenticated and [facility]
[2024-08-07 13:34] VITALS: BP 122/56; PULSE 63; RESP 18; TEMP 36.7; O2SAT 97
--- NOTE | 2024-08-07 13:35 | PC.NURSE ---
[facility] called for ride.
--- NOTE | 2024-08-07 14:00 | PC.NURSE ---
I called and spoke with [facility] staff again. She states they were able to find a ride and should be here soon.
== END 2024-08-07 14:39 | disposition home or self-care (01) ==
PROVIDERS: Emergency Provider Student in an Organized Health Care Education/Training Program
DX: R53.1 Weakness (principal); W01.10XA Fall on same level from slipping, tripping and stumbling with subsequent striking against unspecified object, initial encounter
CPT/HCPCS: 70450; 72125; 99284

== ENCOUNTER 2024-08-11 16:13 | Emergency (ER) | payer MEDICARE, MEDICAID, SELFPAY ==
[2024-08-11 16:18] VITALS: BP 115/69; PULSE 73; RESP 18; TEMP 36.8; O2SAT 95; BMI 23.5
--- NOTE | 2024-08-11 16:26 | ED_ITS ---
<Statement entered by Myra Montes DO - 08/11/24 18:54> I was consulted by the LU[facility], and we discussed the complexity of the problems being addressed. I approved the treatment and management plan for this patient's care in the emergency department, thus performing a substantive portion of the medical decision making. Myra Montes DO Discharge Plan Disposition Patient Disposition: Home, Self-Care Condition: Good Chief Complaint: Fall Prescriptions Prescriptions: No Action multivitamin [Multi-Vitamin] Tablet 1 tab PO DAILY citalopram 10 mg Tablet 5 mg PO DAILY omeprazole 40 mg Capsule,Delayed Release(Dr/Ec) 40 mg PO DAILY haloperidol 10 mg Tablet 10 mg PO BID benztropine 1 mg Tablet 1 mg PO DAILY Referrals Follow up/Referrals: Provider,Referral, MD [Primary Care Provider] - See instructions Activity Restrictions/Add. Instructions Additional Instructions/Restrictions: Please return to the emergency department with any worsening signs or symptoms, please follow-up with your family doctor in the upcoming days. Clinical Impressions Clinical Impression: Abrasion of knee, right Fall Qualifiers: Encounter type: initial encounter Qualified Code(s): W19.XXXA - Unspecified fall, initial encounter Accident due to mechanical fall without injury Qualifiers: Encounter type: initial encounter Qualified Code(s): W19.XXXA - Unspecified fall, initial encounter Instructions Patient Instructions: How to Prevent Falls Print Language Print Language: Icelandic Discharge ED Provider: Myra Montes General Adult HPI <NAHUM Saucedo - Last Filed: 08/11/24 18:21> General Chief complaint: Fall Stated complaint: fall Time Seen by Provider: 08/11/24 16:26 Mode of Arrival: Ambulatory Source of Information: Patient Limitations: No Limitations History of Present Illness HPI narrative: 68-year-old male presents the emergency department as a mechanical fall from assisted living/snf facility, complaining of right knee pain, patient is well-known to the emergency department, seen for falls and psychiatric issues most recently several weeks ago. Patient describes it as a mechanical fall, seems to be at his neurological baseline, admits to striking the head, denies any LOC, denies any anticoagulants, denies any presyncopal or syncopal event leading up to the fall, denies any chest pain, denies shortness of breath, denies abdominal pain nausea vomiting constipation diarrhea, denies any midthoracic back pain, denies any lower back pain, any other extremity pain, moves extremities to command, no upper or lower extremity weakness, no numbness or tingling, other past medical history consistent with anxiety/depression, GERD, frequent falls. Initial triage vitals unremarkable. Unknown history of tobacco alcohol or drug use. However, patient denies any of this at the bedside. Onset (ago): hour(s) Related Data Home Medications ?Medication ?Instructions ?Recorded ?Confirmed benztropine 1 mg tablet 1 mg PO DAILY 05/02/23 05/02/23 citalopram 10 mg tablet 5 mg PO DAILY 05/02/23 05/02/23 haloperidol 10 mg tablet 10 mg PO BID 05/02/23 05/02/23 multivitamin 1 tab PO DAILY 05/02/23 05/02/23 omeprazole 40 mg capsule,delayed 40 mg PO DAILY 05/02/23 05/02/23 release Allergies Allergy/AdvReac Type Severity Reaction Status Date / Time No Known Allergies Allergy Verified 08/07/24 11:03 [facility] <NAHUM Saucedo - Last Filed: 08/11/24 18:21> [facility] Disclaimer: The information contained in this section may have been updated after the patient was seen, as this information can be updated by other users. Social History (Updated 05/03/23 @ 01:40 by Myra Montes DO) Smoking Status: Current every day smoker alcohol intake: never current occupational status: unemployed Travel in the last 8 weeks?: None <NAHUM Saucedo - Last Filed: 08/11/24 18:21> ROS Obtained: Yes All systems reviewed & no additional complaints except as documented Physical Exam <NAHUM Saucedo - Last Filed: 08/11/24 18:21> General General appearance: alert and in no apparent distress Head Head exam: atraumatic and normocephalic Eye Eye exam: Present PERRL and EOMI ENT ENT exam: Present mucous membranes moist Neck Neck exam: Present normal inspection and other (C-collar in place) Chest Chest inspection: Present normal inspection and symmetric chest wall rise Respiratory Respiratory exam: Present normal lung sounds bilaterally; Absent respiratory distress Cardiovascular Cardiovascular exam: Present regular rate and normal rhythm Abdominal Exam Abdominal exam: Present soft and normal bowel sounds; Absent tenderness, guarding, rebound or rigidity Extremities Exam Extremities exam: Present normal inspection Back Exam Back exam: Present normal inspection and full ROM; Absent tenderness, paraspinal tenderness or vertebral tenderness Comment: No T-spine or L-spine spinal or paraspinal tenderness to palpation, no obvious fracture or deformity, full range of motion Neurological Exam Neurological exam: Present alert and oriented X3 Psychiatric Psychiatric exam: Present normal affect Skin Skin exam: Present warm, dry and other (Small skin abrasion over the right knee with some tenderness palpation of the area however patient moves extremity to command otherwise neurovascular intact.) Medical Decision Making <NAHUM Saucedo - Last Filed: 08/11/24 18:21> Medical Records Medical records reviewed: Yes I reviewed the patient's medical records. Screening: Per USPSTF and CDC recommendations, given the prevalence of disease in our [facility], it is our hospital?s policy to screen for HIV and viral Hepatitis for all patients aged 18 and over and those with ongoing risk factors. Ruddy Inquiry Pt receiving controlled substance: No Ruddy was queried for this patient: No Vital Signs: 08/11/24 16:18 08/11/24 16:30 08/11/24 17:30 Temperature 98.2 F Temperature Source Axillary Pulse Rate 72 68 Pulse Rate [Left] 73 Respiratory Rate 18 Blood Pressure 113/78 120/74 Blood Pressure [Right Arm] 115/69 Blood Pressure Mean [Right Arm] 84 Blood Pressure Source [Right Arm] Automatic Cuff Blood Pressure Position [Right Arm] Supine 02 Sat by Pulse Oximetry 95 98 99 Oxygen Delivery Method Room Air Room Air Room Air Orders (Tests/Meds): ED MEDICATIONS Generic Name Dose Route Start Last Admin Trade Name Freq PRN Reason Stop Dose Admin Ondansetron HCl 4 mg 08/11/24 18:17 Ondansetron 4mg Odt SL 08/11/24 18:18 ONCE ONE ORDERS Category Date Time Status CT cervical spine wo con Stat Cat Scan 08/11/24 16:[address] head/brain wo con Stat Cat Scan 08/11/24 16:41 Completed Pelvis XR 1-2 views [XR pelvis 1-2V] Stat Exams 08/11/24 16:41 Completed XR chest portable Stat Exams 08/11/24 16:41 Completed XR knee RT 3V Stat Exams 08/11/24 16:41 Completed Medical Decision Narrative: 68-year-old male presents emerged from for mechanical fall from outside/snf facility, differential diagnose include but limited to, traumatic SAH, SDH, closed head injury, cervical spine fracture, cervicalgia, knee fracture, knee sprain/strain, superficial soft tissue injury, superficial abrasion among others. I discussed patient case with physician Dr. Montes Will obtain x-ray of the chest pelvis, CT cervical spine, CT of the head, right knee x-ray for further evaluation of characterization, will also obtain EKG. I reviewed The patient CT head without contrast on the corresponding radiologic report, no acute process noted. I reviewed the patient's CT cervical spine without contrast on the corresponding radiologic report, no evidence of acute traumatic injury, diffuse cervical spondylosis, carotid atherosclerosis is present. I reviewed the patient's chest x-ray, pelvic x-ray along the corresponding radiological reports, no acute findings in the chest, no interval change, no acute findings in the pelvis. Reviewed the patient's right knee x-ray along with corresponding radiologic report I reviewed the patient's right knee x-ray along the corresponding radiologic report, no acute findings in the right knee. Reexamination of the patient at approximately 6:10 PM, remains at his neurological baseline, GCS 15, answers questions appropriately, discussed results with him, no acute injury, no fracture from his fall, does have some mild soft tissue injury/abrasion of the right knee, extremity to command, no pain to palpation to the femur, cervical collar was discontinued, will give 500 mg p.o. Tylenol to the patient for pain. Patient will be discharged back home to facility. Patient was given strict ED return precautions. Patient voiced understanding of the [facility] plan/discharge plan. Follow-up precautions given. <Myra Montes, DO - Last Filed: 08/11/24 17:33> Vital Signs: 08/11/24 16:18 08/11/24 16:30 08/11/24 17:30 Temperature 98.2 F Temperature Source Axillary Pulse Rate 72 68 Pulse Rate [Left] 73 Respiratory Rate 18 Blood Pressure 113/78 120/74 Blood Pressure [Right Arm] 115/69 Blood Pressure Mean [Right Arm] 84 Blood Pressure Source [Right Arm] Automatic Cuff Blood Pressure Position [Right Arm] Supine 02 Sat by Pulse Oximetry 95 98 99 Oxygen Delivery Method Room Air Room Air Room Air Orders (Tests/Meds): ED MEDICATIONS Generic Name Dose Route Start Last Admin Trade Name Freq PRN Reason Stop Dose Admin Ondansetron HCl 4 mg 08/11/24 18:17 Ondansetron 4mg Odt SL 08/11/24 18:18 ONCE ONE ORDERS Category Date Time Status CT cervical spine wo con Stat Cat Scan 08/11/24 16:[address] head/brain wo con Stat Cat Scan 08/11/24 16:41 Completed Pelvis XR 1-2 views [XR pelvis 1-2V] Stat Exams 08/11/24 16:41 Completed XR chest portable Stat Exams 08/11/24 16:41 Completed XR knee RT 3V Stat Exams 08/11/24 16:41 Completed ECG Data Tracing #1: I reviewed this ECG and interpreted as documented below: Normal sinus rhythm with a ventricular rate of [address] changes concerning for ischemia. Some motion artifact. Normal intervals ECG initial impression date: 08/11/24 ECG initial impression time: 17:32 Critical Care <NAHUM Saucedo - Last Filed: 08/11/24 18:21> Critical Care Time Critical Care Time: No
[2024-08-11 16:30] VITALS: BP 113/78; PULSE 72; O2SAT 98
--- NOTE | 2024-08-11 16:41 | CT_ITS ---
PROCEDURE INFORMATION: Exam: CT Head Without Contrast Exam date and time: 08/11/2024 4:52 PM Age: 68 years old Clinical indication: Injury or trauma; Fall; Blunt trauma (contusions or hematomas); Consciousness not specified; Additional info: Fall, head trauma TECHNIQUE: Imaging protocol: Computed tomography of the head without contrast. Radiation optimization: All CT scans at this facility use at least one of these dose optimization techniques: automated exposure control; mA and/or kV adjustment per patient size (includes targeted exams where dose is matched to clinical indication); or iterative reconstruction. COMPARISON: CT HEAD/BRAIN WO CON 08/07/2024 12:43 PM FINDINGS: Brain: There is diffuse prominence of the cerebral sulci, cisterns, and ventricles consistent with atrophy. No intra or extra-axial fluid collections are noted. No mass or mass effect is seen. Periventricular white matter hypoattenuation is seen consistent with chronic small vessel disease. Cerebral ventricles: No ventriculomegaly. Paranasal sinuses: Visualized sinuses are unremarkable. No fluid levels. Mastoid air cells: Visualized mastoid air cells are well aerated. Bones: Unremarkable. No acute fracture. Soft tissues: Unremarkable. IMPRESSION: No acute process noted.
--- NOTE | 2024-08-11 16:41 | CT_ITS ---
PROCEDURE INFORMATION: Exam: CT Cervical Spine Without Contrast Exam date and time: 08/11/2024 4:55 PM Age: 68 years old Clinical indication: Injury or trauma; Fall; Blunt trauma; Injury date: Today TECHNIQUE: Imaging protocol: Computed tomography of the cervical spine without contrast. Radiation optimization: All CT scans at this facility use at least one of these dose optimization techniques: automated exposure control; mA and/or kV adjustment per patient size (includes targeted exams where dose is matched to clinical indication); or iterative reconstruction. COMPARISON: CT CERVICAL SPINE WO CON 08/07/2024 12:43 PM FINDINGS: Bones/joints: Diffuse cervical spondylosis is noted. Hypertrophic changes of the facet present bilaterally. Discs/Spinal canal/Neural foramina: Narrowing of multiple intervertebral disc spaces are seen. Moderate neural foraminal narrowing is also noted. Lungs: Lung apices are normal. Vasculature: No obvious traumatic injury is seen. Carotid atherosclerosis is present. Soft tissues: Unremarkable. IMPRESSION: 1. No evidence of acute traumatic injury. 2. Diffuse cervical spondylosis. 3. Carotid atherosclerosis is present.
--- NOTE | 2024-08-11 16:41 | XR_ITS ---
PROCEDURE INFORMATION: Exam: XR Right Knee Exam date and time: 08/11/2024 4:56 PM Age: 68 years old Clinical indication: Injury or trauma; Fall; Blunt trauma; Knee; Right; Additional info: Fall/trauma right knee pain. TECHNIQUE: Imaging protocol: Radiologic exam of the right knee. Views: 3 views. COMPARISON: CR XR KNEE RT 3V 11/10/2023 10:47 AM FINDINGS: Bones/joints: No fractures, dislocations, or bone lesions. No significant joint space narrowing or widening. Soft tissues: No soft tissue gas, radiopaque foreign bodies, or masses. IMPRESSION: No acute findings in the right knee.
--- NOTE | 2024-08-11 16:41 | XR_ITS ---
PROCEDURE INFORMATION: Exam: XR Chest Exam date and time: 08/11/2024 4:56 PM Age: 68 years old Clinical indication: Injury or trauma; Fall; Blunt trauma (contusions or hematomas); Additional info: Fall/trauma TECHNIQUE: Imaging protocol: Radiologic exam of the chest. Views: 1 view. COMPARISON: 1. CT CHEST WO CON 07/08/2024 12:56 PM 2. CR XR CHEST PORTABLE 12/24/2023 2:01 PM FINDINGS: Lungs: No consolidation or lung nodules. Calcified hilar lymph nodes. Pleural spaces: No pleural effusion. No pneumothorax. Heart/Mediastinum: No abnormalities. No cardiomegaly. No pulmonary vascular congestion. Bones/joints: No fractures or bone lesions. IMPRESSION: No acute findings in the chest. No interval change.
--- NOTE | 2024-08-11 16:41 | XR_ITS ---
PROCEDURE INFORMATION: Exam: XR Pelvis Exam date and time: 08/11/2024 4:56 PM Age: 68 years old Clinical indication: Injury or trauma; Fall; Blunt trauma (contusions or hematomas); Bilateral; Pelvic region; Additional info: Fall/trauma TECHNIQUE: Imaging protocol: Radiologic exam of the pelvis. Views: 1 or 2 view. COMPARISON: CT BONY PELVIS 07/08/2024 12:59 PM FINDINGS: Bones/joints: No fractures, dislocations, or bone lesions. Old healed left hip fracture with ORIF hardware that has no evidence of loosening. Soft tissues: No soft tissue masses or radiopaque foreign bodies. IMPRESSION: No acute findings in the pelvis.
[2024-08-11 17:30] VITALS: BP 120/74; PULSE 68; O2SAT 99
--- NOTE | 2024-08-11 17:30 | ECG_ITS ---
APPROVED REPORT Exam: Resting ECG HR:64 bpm ECG Measurements Heart Rate 64 AXES KS 162 P 85 QRSd 85 QRS 40 QT 407 T 73 QTc 417 Conclusion SINUS RHYTHM NONSPECIFIC T-WAVE ABNORMALITY No STEMI Electronically signed by : MORENA WISDOM, 08/11/2024 20:03:39
[2024-08-11 18:00] VITALS: BP 122/79; PULSE 64; O2SAT 99
[2024-08-11] MEDS: ONDANSETRON 4MG ODT 4 MG SL (18:20)
[2024-08-11 18:31] VITALS: BP 120/69; PULSE 65; O2SAT 100
[2024-08-11] MEDS: ACETAMINOPHEN 500MG TAB 500 MG PO (18:31)
[2024-08-11 18:45] VITALS: BP 120/69; PULSE 82; RESP 18; TEMP 36.7; O2SAT 97
== END 2024-08-11 19:29 | disposition home or self-care (01) ==
PROVIDERS: Emergency Provider Emergency Medicine
DX: S80.211A Abrasion, right knee, initial encounter (principal); W19.XXXA Unspecified fall, initial encounter
CPT/HCPCS: 70450; 71045; 72125; 72170; 73562; 93005; 99285; Q0162

== ENCOUNTER 2024-08-13 17:20 | Emergency (ER) | payer MEDICARE, MEDICAID, SELFPAY ==
--- NOTE | 2024-08-13 17:20 | ECG_ITS ---
APPROVED REPORT Exam: Resting ECG HR:70 bpm ECG Measurements Heart Rate 70 AXES ID 155 P 80 QRSd 86 QRS 50 QT 406 T 76 QTc 427 Conclusion SINUS RHYTHM NONSPECIFIC T-WAVE ABNORMALITY BORDERLINE ECG Electronically signed by : JAYA MCDUFFIE, 08/15/2024 12:39:36
--- NOTE | 2024-08-13 17:22 | XR_ITS ---
PROCEDURE INFORMATION: Exam: XR Chest Exam date and time: 08/13/2024 5:46 PM Age: 68 years old Clinical indication: Sternal or substernal pain; Additional info: Chest pain TECHNIQUE: Imaging protocol: Radiologic exam of the chest. Views: 1 view. COMPARISON: CR XR CHEST PORTABLE 08/11/2024 4:56 PM FINDINGS: Lungs: Unremarkable. No consolidation. Pleural spaces: Unremarkable. No pleural effusion. No pneumothorax. Heart/Mediastinum: Unremarkable. No cardiomegaly. Bones/joints: Unremarkable. IMPRESSION: No acute findings.
--- NOTE | 2024-08-13 17:23 | HMH.EDGENADL ---
Discharge Plan Disposition Patient Disposition: Home, Self-Care Prescriptions Prescriptions: No Action multivitamin [Multi-Vitamin] Tablet 1 tab PO DAILY citalopram 10 mg Tablet 5 mg PO DAILY omeprazole 40 mg Capsule,Delayed Release(Dr/Ec) 40 mg PO DAILY haloperidol 10 mg Tablet 10 mg PO BID benztropine 1 mg Tablet 1 mg PO DAILY Referrals Follow up/Referrals: Provider,Referral, MD [Primary Care Provider, Medical] - See instructions Activity Restrictions/Add. Instructions Additional Instructions/Restrictions: Take Tylenol and ibuprofen as needed for pain. Follow-up with primary care doctor. Please return to the ER with any new, concerning, or worsening symptoms Clinical Impressions Clinical Impression: Chest pain, Acute hyperkalemia Print Language Print Language: Danish Discharge ED Provider: John Scott General Adult HPI General Chief complaint: PAIN Stated complaint: Fall on 08/11/24 Right side rib pain Time Seen by Provider: 08/13/24 17:21 Mode of Arrival: EMS Source of Information: Patient Limitations: No Limitations History of Present Illness HPI narrative: This is a 68-year-old male with a past medical history of hypertension, hyperlipidemia, paranoid schizophrenia, left hip ORIF who presents with right sided chest pain. States that he fell a few days ago and presented here to the [facility] ED a couple days ago for further evaluation. States that he had no traumatic injuries and was discharged back home. Has had persistent right-sided chest pain since then. States that it is localized around his right ribs and radiates to his back. Unable to describe symptoms further. No other complaints. Related Data Home Medications ?Medication ?Instructions ?Recorded ?Confirmed benztropine 1 mg tablet 1 mg PO DAILY 05/02/23 05/02/23 citalopram 10 mg tablet 5 mg PO DAILY 05/02/23 05/02/23 haloperidol 10 mg tablet 10 mg PO BID 05/02/23 05/02/23 multivitamin 1 tab PO DAILY 05/02/23 05/02/23 omeprazole 40 mg capsule,delayed 40 mg PO DAILY 05/02/23 05/02/23 release Allergies Allergy/AdvReac Type Severity Reaction Status Date / Time No Known Allergies Allergy Verified 08/07/24 11:03 [facility] Disclaimer: The information contained in this section may have been updated after the patient was seen, as this information can be updated by other users. Social History (Updated 05/03/23 @ 01:40 by Myra Montes DO) Smoking Status: Current every day smoker alcohol intake: never current occupational status: unemployed Travel in the last 8 weeks?: None Have you lived/traveled outside [place] in past 30 days?: No Contact w/someone who lives/traveled outside US past 30 days?: No Exposure to someone with infectious disease in past 14 days?: No Do you have a fever (greater than 100.4 F or 38 C)?: No Have you tested positive for COVID-19?: No Exposed to someone with COVID-19 in past 14 days?: No Do you have a sore throat?: No Do you have a cough?: No Do you have any weakness?: No Do you have any diarrhea?: No Are you experiencing any unusual bleeding?: No Do you have any muscle aches/pain?: No Do you have any abdominal pain?: No Are you experiencing loss of taste or smell?: No ROS Obtained: Yes All systems reviewed & no additional complaints except as documented Physical Exam General General appearance: alert Comment: Chronically ill-appearing Head Head exam: atraumatic Eye Eye exam: Present normal appearance, PERRL and EOMI Neck Neck exam: Present normal inspection and full ROM Chest Chest inspection: Present symmetric chest wall rise; Absent tenderness Respiratory Respiratory exam: Present normal lung sounds bilaterally and other (Possible right sided rales); Absent respiratory distress Cardiovascular Cardiovascular exam: Present regular rate and normal rhythm Abdominal Exam Abdominal exam: Present soft; Absent distention Extremities Exam Extremities exam: Present normal inspection Neurological Exam Neurological exam: Present alert and oriented X3 Psychiatric Psychiatric exam: Present normal affect and normal mood Skin Skin exam: Present warm and dry Medical Decision Making Medical Records Medical records reviewed: Yes I reviewed the patient's medical records. Screening: Per USPSTF and CDC recommendations, given the prevalence of disease in our region, it is our hospital?s policy to screen for HIV and viral Hepatitis for all patients aged 18 and over and those with ongoing risk factors. MR Comment: Emergency department visit from 07/08/2024 notable for evaluation after a fall. CT chest revealed no acute injuries. Ruddy Inquiry Pt receiving controlled substance: No Vital Signs: 08/13/24 17:24 08/13/24 17:34 08/13/24 18:30 Temperature 98.9 F 98.9 F Temperature Source Rectal Rectal Pulse Rate 79 63 Pulse Rate [Right] 79 Respiratory Rate 24 24 Blood Pressure 126/58 L 129/49 L Blood Pressure [Right Arm] 126/58 L Blood Pressure Mean [Right Arm] 80 Blood Pressure Source Automatic Cuff Blood Pressure Source [Right Arm] Automatic Cuff Blood Pressure Position Supine Blood Pressure Position [Right Arm] Supine 02 Sat by Pulse Oximetry 100 97 99 Oxygen Delivery Method Room Air Room Air Room Air Lab Data Lab Results 08/13/24 17:22: WBC 7.8, RBC 4.16 L, Hgb 13.3 L, Hct 40.4 L, MCV 97.1 H, MCH 32.0 H, MCHC 32.9, RDW 12.8, Plt Count 284, MPV 9.3, Neut % (Auto) 56.6, Lymph % (Auto) 26.6, Gibson % (Auto) 11.3 H, Eos % (Auto) 4.2, Baso % (Auto) 0.5, Neut # (Auto) 4.4, Lymph # (Auto) 2.1, Gibson # (Auto) 0.9, Eos # (Auto) 0.3, Baso # (Auto) 0.0, D-Dimer 0.73 H, Sodium 145, Potassium 5.3 H, Chloride 111 H, Carbon Dioxide 26, Anion Gap 13.3, BUN 21 H, Creatinine 1.20, Estimated Creat Clear 51, Estimated GFR 60, Est GFR ( Amer) 72, Glucose 96, Calcium 9.9, Total Bilirubin 1.0, AST 29, ALT 27, Alkaline Phosphatase 131 H, Troponin I < 0.01, Total Protein 8.5 H, Albumin 4.6, Globulin 3.9 H, Albumin/Globulin Ratio 1.2 08/13/24 17:32: Urine Color Yellow, Urine Appearance Clear, Urine pH 6.0, Ur Specific [place] 1.020, Urine Protein Negative, Urine Glucose (UA) Negative, Urine Ketones Negative, Urine Blood Trace-i, Urine Nitrate Negative, Urine Bilirubin Negative, Urine Urobilinogen 0.2, Ur Leukocyte Esterase Negative 08/13/24 17:22 08/13/24 17:22 Orders (Tests/Meds): ORDERS Category Date Time Status XR chest portable Stat Exams 08/13/24 17:22 Completed CBC w/Auto Diff [Complete Blood Count Auto Diff] Stat Lab 08/13/24 17:22 Completed CMP [Comprehensive Metabolic Panel] Stat Lab 08/13/24 17:22 Completed D-Dimer Stat Lab 08/13/24 17:22 Completed Troponin I Stat Lab 08/13/24 17:22 Completed Urinalysis and Microscopic Stat Lab 08/13/24 17:32 Results ECG Data Tracing #1: I reviewed this ECG and interpreted as documented below: Normal sinus rhythm at a rate of 70, QTc 427, normal axis, no STEMI Medical Decision Narrative: In summary, this 68-year-old male with a history of hypertension, hyperlipidemia, paranoid schizophrenia, left hip ORIF presents to the emergency department today with right sided rib pain . On initial evaluation patient is afebrile, hemodynamically stable, satting 100% on room air, chronically ill-appearing. No significant chest wall tenderness. Differential diagnosis includes but is not limited to pneumonia, rib fractures, intercostal muscle strain, ACS, pulmonary embolism. Based on these concerns, I ordered CBC, CMP, EKG, troponin, chest x-ray, UA. ECG personally interpreted as noted above. Labs personally reviewed demonstrate undetectable troponin, no UTI, Nonactionable CMP with the exception of mildly elevated potassium at 5.3. D-dimer 0.73. Considered CT PE, however PE clinically ruled out by years criteria. On reassessment patient in stable condition and in no acute distress. Appropriate for discharge back to living facility.. Critical Care Critical Care Time Critical Care Time: No
[2024-08-13 17:24] VITALS: BP 126/58; PULSE 79; RESP 24; TEMP 37.2; O2SAT 100; BMI 19.0
[2024-08-13 17:34] VITALS: BP 126/58; PULSE 79; RESP 24; TEMP 37.2; O2SAT 97
[2024-08-13 17:40] LABS: Basophils % 0.5 % (0.1-2.0); Eosinophils # 0.3 Kmm3 (0.0-0.4); Eosinophils % 4.2 % (0.1-12.0); Hematocrit 40.4 % (42.0-52.0); Hemoglobin 13.3 g/dL (14.1-18.0); Immature Granulocytes # 0.06 10^3uL; Immature Granulocytes % 0.8 %; Lymphocytes # 2.1 K/mm3 (0.7-4.5); Lymphocytes % 26.6 % (10-50); Mean Corpuscular HGB Conc 32.9 g/dL (31.8-35.4); Mean Corpuscular Volume 97.1 fl (80-94); Mean Platelet Volume 9.3 fl (7.4-10.4); Monocytes # 0.9 K/mm3 (0.1-1.0); Monocytes % 11.3 % (1.7-9.3); Neutrophils # 4.4 K/mm3 (1.8-7.8); Neutrophils % 56.6 % (37.0-80.0); Nucleated Red Blood Cells # 0 10^3/uL; Nucleated Red Blood Cells % 0 %; Platelet Count 284 K/mm3 (142-424); Red Blood Count 4.16 M/mm3 (4.60-6.20); Red Cell Distribution Width 12.8 % (11.5-17.5); Red Cell Distribution Width-SD 46.1 fL; White Blood Count 7.8 K/mm3 (4.8-10.8)
[2024-08-13 17:44] LABS: Albumin Level 4.6 g/dl (3.5-5.0); Chloride 111 mmol/L (98-107); Potassium 5.3 mmoL/L (3.5-5.1); Sodium 145 mmol/L (136-145)
--- NOTE | 2024-08-13 17:44 | PC.NURSE ---
PT GONE TO CT
[2024-08-13 17:46] LABS: Blood Urea Nitrogen 21 mg/dl (9-20); Creatinine Clearance Estimated 51 mL/min (50-200); Estimated Glomerular Filt Rate 60 ml/min (>60); GFR (African American) 72 ML/MIN (>60)
[2024-08-13 17:47] LABS: Alanine Aminotransferase 27 U/L (12-78); Albumin/Globulin Ratio 1.2 (1.1-1.8); Alkaline Phosphatase 131 U/L (38-126); Anion Gap 13.3 mEq/L (5-15); Aspartate Amino Transferase 29 U/L (17-59); Calcium 9.9 mg/dl (8.4-10.2); Carbon Dioxide 26 mmol/L (22.0-30.0); Globulin 3.9 g/dL (1.3-3.2); Glucose 96 mg/dl (74-100); Total Protein,Serum 8.5 g/dl (6.3-8.2)
[2024-08-13 17:53] LABS: D-Dimer 0.73 ug/mL (0.0-0.5)
[2024-08-13 18:06] LABS: Troponin I < 0.01 ng/ml (0.00-0.034)
[2024-08-13 18:24] LABS: Microscopic, Urine URINE MICROSCOPIC (MICROSCOPIC)
[2024-08-13 18:25] LABS: Appearance,Urine CLEAR (Clear); Bilirubin,Urine Negative (Negative); Blood, Urine TRACE-I (Negative); Color,Urine YELLOW (Yellow); Glucose,Urine (UA) Negative (Negative); Ketones,Urine Negative (Negative); Leukocyte Esterase,Urine Negative (Negative); Nitrate,Urine Negative (Negative); Protein,Urine Negative (Negative); Urobilinogen,Urine 0.2 EU/dl (0.2)
[2024-08-13 18:30] VITALS: BP 129/49; PULSE 63; O2SAT 99
--- NOTE | 2024-08-13 18:53 | PC.NURSE ---
I attempted to call [facility] and was unable to get through to a staff member.
[2024-08-13 19:00] VITALS: BP 105/42; PULSE 64; RESP 21; O2SAT 97
--- NOTE | 2024-08-13 19:14 | PC.NURSE ---
attempted to call [facility] 5 times to come hot die picker this pt, they did not answer. called nellie maguire twice first time they hung up on me, second time they said they would attempt to contact [facility] if [facility] didnt answer they were going to come get this pt themselves.
[2024-08-13 19:29] VITALS: BP 105/42; PULSE 64; RESP 18; TEMP 36.6; O2SAT 97
[2024-08-13 19:35] LABS: Bacteria,Urine 1+ /lpf
--- NOTE | 2024-08-16 15:26 | PC.NURSE ---
urine culture completed, no growth final result. ntd
== END 2024-08-13 19:38 | disposition home or self-care (01) ==
PROVIDERS: Emergency Provider Student in an Organized Health Care Education/Training Program
DX: R07.89 Other chest pain (principal); E87.5 Hyperkalemia; I10 Essential (primary) hypertension; W01.0XXA Fall on same level from slipping, tripping and stumbling without subsequent striking against object, initial encounter; F17.210 Nicotine dependence, cigarettes, uncomplicated
CPT/HCPCS: 71045; 80053; 81001; 84484; 85025; 85378; 87086; 93005; 99285

== ENCOUNTER 2024-08-14 10:55 | Emergency (ER) | payer MEDICARE, MEDICAID, SELFPAY ==
[2024-08-14] VITALS (8 sets, daily range): BP systolic 103–136; BP diastolic 54–115; PULSE 50–70; RESP 12–21; TEMP 36.5–36.8; O2SAT 95–99; BMI 23.0
--- NOTE | 2024-08-14 11:20 | HMH.EDGENADL ---
Discharge Plan Disposition Patient Disposition: Home, Self-Care Condition: Good Prescriptions Prescriptions: No Action multivitamin [Multi-Vitamin] Tablet 1 tab PO DAILY citalopram 10 mg Tablet 5 mg PO DAILY omeprazole 40 mg Capsule,Delayed Release(Dr/Ec) 40 mg PO DAILY haloperidol 10 mg Tablet 10 mg PO BID benztropine 1 mg Tablet 1 mg PO DAILY Referrals Follow up/Referrals: Provider,Referral, MD [Primary Care Provider, Medical] - See instructions Activity Restrictions/Add. Instructions Additional Instructions/Restrictions: Please return with any new or worsening symptoms. You were evaluated by physical therapy and Occupational Therapy and able to walk around the emergency department without significant difficulty Clinical Impressions Clinical Impression: Declining functional status Instructions Patient Instructions: DI for Low Back Pain Print Language Print Language: Maltese Discharge ED Provider: Dwayne Pollock Adult HPI General Chief complaint: Back Pain/Injury Stated complaint: Back Pain Time Seen by Provider: 08/14/24 11:20 Mode of Arrival: EMS Source of Information: Patient and EMS Description of Symptoms (Recalled from ER Triage Doc. by RN): Pt lives at [facility], has been sent up to ER on multiple occassions with concerns that the pain is complaining of back pain and we are assessing chest pain. Pt is developementaly delayed and slow to respond to questions. Pt denying back pain at this time with EMS present. EMS states they were also concerned for his gasping for air, pt oxygen is 99% at this time, denies any CP or SOB. History of Present Illness HPI narrative: The patient presents with a chief complaint of back pain. The patient reports a history of chronic back problems, with the current episode being an exacerbation of unknown duration. The pain is localized to the back without any specific spot of maximum intensity. The patient denies any recent trauma or inciting event related to this exacerbation. There is no reported radiation of pain to other areas of the body. The patient's mobility appears to be affected, though the extent of impact on daily functioning is unclear. The patient denies any associated numbness or tingling. No specific aggravating or alleviating factors were mentioned. Please note that above description of symptoms, in this electronic medical record under categorization of recalled from ER triage doctor by RN are reflective of an initial nursing assessment, however, is not reflective of my full history and physical exam that was personally taken and clarified. Consequentially, this preceding description of symptoms, which may include the patient's categorized chief complaint in the EMR, do not reflect my personal clinical impression, and the ultimate description of history of present illness and patient stated complaints should be deferred to this section of the note. Unless stated otherwise or congruent with this section of the note, additional signs, symptoms, or incongruence should be interpreted as inaccurate with my clinical impression. Related Data Home Medications ?Medication ?Instructions ?Recorded ?Confirmed benztropine 1 mg tablet 1 mg PO DAILY 05/02/23 05/02/23 citalopram 10 mg tablet 5 mg PO DAILY 05/02/23 05/02/23 haloperidol 10 mg tablet 10 mg PO BID 05/02/23 05/02/23 multivitamin 1 tab PO DAILY 05/02/23 05/02/23 omeprazole 40 mg capsule,delayed 40 mg PO DAILY 05/02/23 05/02/23 release Allergies Allergy/AdvReac Type Severity Reaction Status Date / Time No Known Allergies Allergy Verified 08/07/24 11:03 [facility] Disclaimer: The information contained in this section may have been updated after the patient was seen, as this information can be updated by other users. Social History (Updated 05/03/23 @ 01:40 by Myra Montes DO) Smoking Status: Current every day smoker alcohol intake: never current occupational status: unemployed Travel in the last 8 weeks?: None Have you lived/traveled outside US in past 30 days?: No Contact w/someone who lives/traveled outside US past 30 days?: No Exposure to someone with infectious disease in past 14 days?: No Do you have a fever (greater than 100.4 F or 38 C)?: No Have you tested positive for COVID-19?: No Exposed to someone with COVID-19 in past 14 days?: No Do you have a sore throat?: No Do you have a cough?: No Do you have any weakness?: No Do you have any diarrhea?: No Are you experiencing any unusual bleeding?: No Do you have any muscle aches/pain?: Yes Do you have any abdominal pain?: No Are you experiencing loss of taste or smell?: No ROS Obtained: Yes other As per HPI Physical Exam General General appearance: alert and in no apparent distress Head Head exam: atraumatic and normocephalic Eye Eye exam: Present normal appearance Neck Neck exam: Present normal inspection Chest Chest inspection: Present normal inspection and symmetric chest wall rise Respiratory Respiratory exam: Present normal lung sounds bilaterally; Absent respiratory distress Cardiovascular Cardiovascular exam: Present regular rate and normal rhythm Abdominal Exam Abdominal exam: Present soft Neurological Exam Neurological exam: Present alert and oriented X3 Psychiatric Psychiatric exam: Present normal affect and normal mood Skin Skin exam: Present warm and dry Medical Decision Making Medical Records Medical records reviewed: Yes I reviewed the patient's medical records. Screening: Per USPSTF and CDC recommendations, given the prevalence of disease in our region, it is our hospital?s policy to screen for HIV and viral Hepatitis for all patients aged 18 and over and those with ongoing risk factors. Ruddy Inquiry Pt receiving controlled substance: No Vital Signs: 08/14/24 11:06 08/14/24 11:30 08/14/24 12:30 Temperature 97.7 F Temperature Source Oral Pulse Rate 54 L 60 Pulse Rate [Left] 59 L Respiratory Rate 16 17 12 Blood Pressure 128/64 127/67 Blood Pressure [Right Arm] 108/86 L Blood Pressure Mean [Right Arm] 93 Blood Pressure Source [Right Arm] Automatic Cuff Blood Pressure Position [Right Arm] Sitting 02 Sat by Pulse Oximetry 99 96 98 Oxygen Delivery Method Room Air Room Air Room Air 08/14/24 13:31 08/14/24 14:01 08/14/24 14:30 Temperature Temperature Source Pulse Rate 70 56 L 50 L Pulse Rate [Left] Respiratory Rate 16 21 18 Blood Pressure 103/66 L 118/54 L 133/59 L Blood Pressure [Right Arm] Blood Pressure Mean [Right Arm] Blood Pressure Source [Right Arm] Blood Pressure Position [Right Arm] 02 Sat by Pulse Oximetry 95 96 97 Oxygen Delivery Method Room Air Room Air Room Air 08/14/24 15:00 08/14/24 15:26 Temperature 98.2 F Temperature Source Pulse Rate 59 L 50 L Pulse Rate [Left] Respiratory Rate 12 14 Blood Pressure 136/115 H 133/59 L Blood Pressure [Right Arm] Blood Pressure Mean [Right Arm] Blood Pressure Source [Right Arm] Blood Pressure Position [Right Arm] 02 Sat by Pulse Oximetry 97 Oxygen Delivery Method Room Air Room Air Orders (Tests/Meds): ED MEDICATIONS Discontinued Medications Generic Name Dose Route Start Last Admin Trade Name Freq PRN Reason Stop Dose Admin Acetaminophen 1,000 mg 08/14/24 11:45 08/14/24 11:59 Acetaminophen 500mg Tab PO 08/14/24 11:46 1,000 mg ONCE ONE Administration Ibuprofen 400 mg 08/14/24 11:45 08/14/24 11:59 Ibuprofen 400 Mg Tablet PO 08/14/24 11:46 400 mg ONCE ONE Administration ORDERS Category Date Time Status Consult to Case Management [CONS] Routine Cons 08/14/24 13:28 Active Consult to Case Management [CONS] Routine Cons 08/14/24 14:51 Active Medical Decision Narrative: Patient with history and exam per above presenting for evaluation of reported back pain Diagnoses considered include functional decline, no clinical evidence of fracture or acute osseous abnormality. Patient's cognition at baseline per collateral obtained by [facility] ED workup and treatment included: ED MEDICATIONS Discontinued Medications Generic Name Dose Route Start Last Admin Trade Name Freq PRN Reason Stop Dose Admin Acetaminophen 1,000 mg 08/14/24 11:45 08/14/24 11:59 Acetaminophen 500mg Tab PO 08/14/24 11:46 1,000 mg ONCE ONE Administration Ibuprofen 400 mg 08/14/24 11:45 08/14/24 11:59 Ibuprofen 400 Mg Tablet PO 08/14/24 11:46 400 mg ONCE ONE Administration ORDERS Category Date Time Status Consult to Case Management [CONS] Routine Cons 08/14/24 13:28 Active Consult to Case Management [CONS] Routine Cons 08/14/24 14:51 Active Patient was evaluated by physical therapy and Occupational Therapy. He was able to ambulate in the emergency department without difficulty. He is stable for discharge at this time back to facility. Return precautions given. Critical Care Critical Care Time Critical Care Time: No
--- NOTE | 2024-08-14 11:38 | PC.NURSE ---
called pt/ ot for consult for placement
[2024-08-14] MEDS: IBUPROFEN 400 MG TABLET PO (11:59)
[2024-08-14] MEDS: ACETAMINOPHEN 500MG TAB 1000 MG PO (11:59)
--- NOTE | 2024-08-14 12:57 | PC.NURSE ---
PT/OT at bedside
--- NOTE | 2024-08-14 13:05 | PC.NURSE ---
left voicemail with care management for placement
--- NOTE | 2024-08-14 13:49 | HMH.PTEV ---
Physical Therapy Evaluation Rehab PT IP Evaluation Start: 08/14/24 11:16 Freq: ONCE Status: Active Protocol: Document 08/14/24 13:08 TIMO (Rec: 08/14/24 13:49 TIMO [id number]) Subjective/History History History Per H&P: Pt lives at [facility], has been sent up to ER on multiple occassions with concerns that the pain is complaining of back pain and we are assessing chest pain. Pt is developementaly delayed and slow to respond to questions. Pt denying back pain at this time with EMS present. EMS states they were also concerned for his gasping for air, pt oxygen is 99% at this time, denies any CP or SOB. Subjective Subjective Pt oriented to name. Pt not oriented to situation or place. Pt slow to answer history questions. Pt reports he usually doesn't have difficulty getting around. Pt denies use of AD or steps to get into home. Pt resides at [place]. [facility] How much help from another person do you currently need... Turning from your A little back to your side while in a flat bed without using bedrails? Moving from lying on A little back to sitting on the side of a flat bed without using bedrails? Moving to and from a A little bed to a chair ( including a wheelchair)? Standing up from a A little chair using your arms? (e.g., wheelchair, bedside chair) Walking in hospital A little room? Climbing 3-5 steps A little with a railing? Mobility Score 18 Mobility Level [facility] Mobility 6 Walk 10 steps or more Mobility Calculator Rehab PT IP Eval Objective Appearance Patient Behavior Appropriate,Cooperative Patient Orientation Person Difficulty following mild instructions Speech Pattern Delayed Ambulation Patient Able to Yes Ambulate Ambulation Observation IP General Gait Shuffling Step Pattern Observation Ambulation Distance 50 (feet) Ambulation Assistive None Device Ambulation Ability Minimal x 1 (25% assist) Balance Ability to Arise Able, uses arms to help Sitting Balance Steady, safe Standing Balance Unsteady Transfers Bed Transfer Ability Minimal x 1 (25% assist) Sit to Stand Bed Contact Guard/Hand Hold Transfer Ability Rehab PT IP prob,goals,plan Problems Date of Evaluation: 08/14/24 PT IP Problems Bed Mobility,Transfers,Gait,Balance,Self care,Safety Rehab Potential Rehab Potential Good Plan PT Intervention Plan Bed Mobility,Transfers,Gait,Balance,Self care,Safety, Therapeutic Exercise Other Intervention 1-2 times Plan PT Plan Frequency Daily Duration LOS Discharge Goals Bed Transfer Ability Contact Guard/Hand Hold Sit to Stand Chair Contact Guard/Hand Hold Transfer Ability Discharge Plan PT Discharge Plan Initial physical therapy evaluation performed. Patient presents below baseline at this time in functional mobility, transfers, and strength. Pt was unsteady with ambulation and required VCs for safe navigation. Pt not safe to return home at this time d/t current level of functional mobility. PT recommending short-term rehabilitation stay upon d/c from [facility]. Pt would benefit from skilled PT while at [facility] to prevent further functional decline and maximize safety with mobility. Eval Complexity Eval Charge Codes 01577 - Moderate Complexity PHYSICIAN CERTIFICATION: I certify the specified therapy services for Marshall Schroeder are required, authorized, and reviewed every 30 days.
--- NOTE | 2024-08-14 14:06 | PC.NURSE ---
Iraida to speak with PT/OT about pt placement, possible walker to go back to [place] vs admit
--- NOTE | 2024-08-14 14:48 | CARE MANAGER ---
Patient requires the use of a walker for safe ambulation, and a cane would not provide enough stability.
--- NOTE | 2024-08-14 14:51 | PC.NURSE ---
Iraida from case management reported that pt can return to [place] with a walker per therapy report. Also ER dr to [facility] PT/OT home health service to work with pt at [place].
--- NOTE | 2024-08-14 14:56 | SW/DCPLANNER ---
Addendum entered by Iraida Davis 08/14/24 15:10: Erik mason/ [facility] has accepted patient for services. Original Note: I received a consult on this patient regarding possible placement. Patient currently resides at [facility]. Per Miley Reece patient has had several falls in the past and placement/home health has not been ordered. I did ask Miley patient's baseline mentation status and she stated that he makes his own decisions. Miley also stated that if patient is asked contact information he refers to his parents whom passed years ago. When I spoke w/ patient in the ED he was only able to provide his name and . PT evaluated patient and recommended returning back to [place] w/ a rolling walker. Due to patient being able to ambulate 150 ft and no medical necessity for admission he will return to [facility] today. I will order a rolling walker from [facility] and set up home health services thru [facility]. I have also informed Miley Reece regarding the need for a State Guardian and she assured me she would start the process on Saturday.
--- NOTE | 2024-08-14 15:15 | PC.NURSE ---
CAR A WILMER HAS BEEN CALLED AND WILL BE HERE TO TAKE PT BACK TO [place]
--- NOTE | 2024-08-14 16:06 | HMH.OTEV ---
OT Inpatient Evaluation Rehab OT IP Evaluation Start: 08/14/24 11:16 Freq: ONCE Status: Discharge Protocol: Document 08/14/24 15:49 HERMILA (Rec: 08/14/24 16:04 HERMILA [id number]) Rehab OT IP Assessment Subjective History The patient presents with a chief complaint of back pain. The patient reports a history of chronic back problems, with the current episode being an exacerbation of unknown duration. The pain is localized to the back without any specific spot of maximum intensity. The patient denies any recent trauma or inciting event related to this exacerbation. There is no reported radiation of pain to other areas of the body. The patient's mobility appears to be affected, though the extent of impact on daily functioning is unclear. The patient denies any associated numbness or tingling. No specific aggravating or alleviating factors were mentioned. Subjective Pt alert and oriented to name and . He denies pain during OT evaluation. He states, I can walk. Objective Patient Orientation Name,Birthday Right Upper WFL Extremity Gross ROM Left Upper Extremity WFL Gross ROM Bed Mobility bed mobility - supine/sit Assist Level Minimal x 1 (25% assist) Transfer Training Sit/Stand Transfer,Sit/Stand/Step Transfer Assist Level Minimal x 1 (25% assist) Decrease in Yes Endurance Rehab OT IP prob,goals,plan Problems Date of Evaluation: 08/14/24 OT IP Problems Bed Mobility,Transfers,Balance,Self care,Safety,Other Rehab Potential Rehab Potential Good Equipment Needs Assistive Devices Rolling / Wheeled Walker Plan OT intervention Plan Bed Mobility,Transfers,Balance,Self care,Safety, Therapeutic Exercise,Other OT Plan Frequency Daily Discharge Goals Bed Mobility Ability Independent Sit to Stand Chair Independent Transfer Ability Self care skills fully toilet trained,dressing/undressing independently Performing Toilet Independent Hygiene Ability Overall Commode/ Independent Toilet Transfer Ability Commode/Toilet Sit to/from Ambulatory Transfer Technique Oral Care Assist Independent Decrease in Yes Endurance Discharge Plan OT Discharge Plan Pt seen by OT for evaluation due to deficits listed above. At the time seen by this therapist, pt was unsteady with 2 LOB, especially during turns and required cues for directionality. He would benefit from rehab to address the aforementioned areas of deficit in order to reduce risk of falls, promote independence and overall safety in his home environment. Eval Complexity Eval Charge Codes 30957 - Moderate Complexity PHYSICIAN CERTIFICATION: I certify the specified therapy services for Marshall Schroeder are required, authorized, and reviewed every 30 days.
== END 2024-08-14 15:29 | disposition home or self-care (01) ==
PROVIDERS: Emergency Provider Emergency Medicine
DX: M54.50 Low back pain, unspecified (principal); R53.81 Other malaise
CPT/HCPCS: 99283

== ENCOUNTER 2024-09-18 15:22 | Emergency (ER) | payer MEDICARE, MEDICAID, SELFPAY ==
[2024-09-18] VITALS (9 sets, daily range): BP systolic 105–176; BP diastolic 57–93; PULSE 72–102; RESP 18–19; TEMP 36.6–36.9; O2SAT 96–100; BMI 23.0
--- NOTE | 2024-09-18 15:31 | CT_ITS ---
PROCEDURE INFORMATION: Exam: CT Head Without Contrast Exam date and time: 09/18/2024 3:44 PM Age: 68 years old Clinical indication: Injury or trauma; Fall; Blunt trauma (contusions or hematomas); Additional info: Fall, possible head trauma TECHNIQUE: Imaging protocol: Computed tomography of the head without contrast. Radiation optimization: All CT scans at this facility use at least one of these dose optimization techniques: automated exposure control; mA and/or kV adjustment per patient size (includes targeted exams where dose is matched to clinical indication); or iterative reconstruction. COMPARISON: CT HEAD/BRAIN WO CON 08/11/2024 4:52 PM FINDINGS: Brain: No hemorrhage. Unremarkable white matter. No mass effect. Cerebral ventricles: No ventriculomegaly. Paranasal sinuses: Visualized sinuses are unremarkable. No fluid levels. Mastoid air cells: Visualized mastoid air cells are well aerated. Bones: Unremarkable. No acute fracture. Soft tissues: Unremarkable. IMPRESSION: No acute intracranial findings identified.
--- NOTE | 2024-09-18 15:31 | CT_ITS ---
PROCEDURE INFORMATION: Exam: CT Cervical Spine Without Contrast Exam date and time: 09/18/2024 3:46 PM Age: 68 years old Clinical indication: Injury or trauma; Fall; Blunt trauma; Additional info: Fall, possible head trauma TECHNIQUE: Imaging protocol: Computed tomography of the cervical spine without contrast. Radiation optimization: All CT scans at this facility use at least one of these dose optimization techniques: automated exposure control; mA and/or kV adjustment per patient size (includes targeted exams where dose is matched to clinical indication); or iterative reconstruction. COMPARISON: CT CERVICAL SPINE WO CON 08/11/2024 4:55 PM FINDINGS: Nondiagnostic study secondary to significant image degradation from motion artifacts. IMPRESSION: Nondiagnostic exam. Recommend repeat study, as clinically indicated.
--- NOTE | 2024-09-18 15:31 | XR_ITS ---
PROCEDURE INFORMATION: Exam: XR Chest Exam date and time: 09/18/2024 3:51 PM Age: 68 years old Clinical indication: Injury or trauma; Fall; Blunt trauma (contusions or hematomas) TECHNIQUE: Imaging protocol: Radiologic exam of the chest. Views: 1 view. Total images: 1 COMPARISON: CR XR CHEST PORTABLE 08/13/2024 5:46 PM FINDINGS: Lungs: Bilateral hilar granulomatous calcifications present. Bilateral hyperinflation is present. No focal pneumonia. Pleural spaces: No pleural effusions. No evidence of pneumothorax. Heart/Mediastinum: No cardiomegaly. Bones/joints: Unremarkable. IMPRESSION: 1. Bilateral hyperinflation is present. 2. No focal pneumonia. 3. No acute cardiopulmonary abnormalities.
--- NOTE | 2024-09-18 15:31 | XR_ITS ---
PROCEDURE INFORMATION: Exam: XR Right Knee Exam date and time: 09/18/2024 3:51 PM Age: 68 years old Clinical indication: Injury or trauma; Fall; Blunt trauma; Knee; Right; Additional info: Fall, right knee pain TECHNIQUE: Imaging protocol: Radiologic exam of the right knee. Views: 1 or 2 views. Total images: 2 COMPARISON: CR XR KNEE RT 3V 08/11/2024 4:56 PM FINDINGS: Bones/joints: There are mild degenerative changes of the knee joint, predominantly involving the medial joint compartment. No evidence of acute fracture or dislocation. Soft tissues: Soft tissues are within normal limits. IMPRESSION: 1. There are mild degenerative changes of the knee joint, predominantly involving the medial joint compartment. 2. No evidence of acute fracture or dislocation.
--- NOTE | 2024-09-18 15:31 | XR_ITS ---
PROCEDURE INFORMATION: Exam: XR Right Tibia and Fibula Exam date and time: 09/18/2024 3:51 PM Age: 68 years old Clinical indication: Injury or trauma; Fall; Blunt trauma; Lower leg; Right; Additional info: Fall, right knee/tib fib pain TECHNIQUE: Imaging protocol: Radiologic exam of the right tibia and fibula. Views: 2 views. Total images: 4 COMPARISON: CR XR TIBIA FIBULA RT 2V 09/18/2024 3:51 PM FINDINGS: Bones/joints: No evidence of acute fracture or dislocation. Soft tissues: Soft tissues are within normal limits. IMPRESSION: No evidence of acute fracture or dislocation.
--- NOTE | 2024-09-18 15:33 | ED_ITS ---
Discharge Plan Disposition Patient Disposition: Home, Self-Care Prescriptions Prescriptions: No Action multivitamin [Multi-Vitamin] Tablet 1 tab PO DAILY citalopram 10 mg Tablet 5 mg PO DAILY omeprazole 40 mg Capsule,Delayed Release(Dr/Ec) 40 mg PO DAILY haloperidol 10 mg Tablet 10 mg PO BID benztropine 1 mg Tablet 1 mg PO DAILY Referrals Follow up/Referrals: Provider,Referral, MD [Primary Care Provider, Medical] - See instructions Activity Restrictions/Add. Instructions Additional Instructions/Restrictions: If you develop any new or worsening symptoms, or if you become concerned for your health for any reason, return to the emergency department for evaluation Clinical Impressions Clinical Impression: Abrasion of knee, right, Fall Print Language Print Language: Uzbek Discharge ED Provider: Yao Lewis Adult HPI General Chief complaint: Fall Stated complaint: FALL Time Seen by Provider: 09/18/24 15:25 Mode of Arrival: EMS Source of Information: Patient and EMS History of Present Illness HPI narrative: Marshall Schroeder is a 68-year-old male with past medical history of frequent falls, anxiety, Alzheimer's, schizophrenia, who presents to the emergency department from [facility] after a fall. Reportedly, patient has had 2 falls today, they were able to catch him before he fell to the ground on the first 1, however second fall he fell to the ground and hit his right knee. EMS reports that he did strike his head but no loss of consciousness. No blood thinner use. Patient denies headache or vision changes or neck pain or back pain or abdominal pain or chest pain or shortness of breath. Patient is complaining of pain in his right knee. He denies any numbness, tingling or weakness. Related Data Home Medications ?Medication ?Instructions ?Recorded ?Confirmed benztropine 1 mg tablet 1 mg PO DAILY 05/02/2305/02 citalopram 10 mg tablet 5 mg PO DAILY 05/02/2305/02 haloperidol 10 mg tablet 10 mg PO BID 05/02/23 multivitamin 1 tab PO DAILY 05/02/2304/18 omeprazole 40 mg capsule,delayed 40 mg PO DAILY 05/02/23 release Allergies Allergy/AdvReac Type Severity Reaction Status Date / Time No Known Allergies Allergy Verified 08/07/24 11:03 [facility] Disclaimer: The information contained in this section may have been updated after the patient was seen, as this information can be updated by other users. Social History (Updated 05/03/23 @ 01:40 by Myra Montes DO) Smoking Status: Current every day smoker alcohol intake: never current occupational status: unemployed Travel in the last 8 weeks?: None Have you lived/traveled outside US in past 30 days?: No Contact w/someone who lives/traveled outside US past 30 days?: No Exposure to someone with infectious disease in past 14 days?: No Do you have a fever (greater than 100.4 F or 38 C)?: No Have you tested positive for COVID-19?: No Exposed to someone with COVID-19 in past 14 days?: No Do you have a sore throat?: No Do you have a cough?: No Do you have any weakness?: No Do you have any diarrhea?: No Are you experiencing any unusual bleeding?: No Do you have any muscle aches/pain?: No Do you have any abdominal pain?: No Are you experiencing loss of taste or smell?: No ROS Obtained: Yes Systems reviewed as appropriate & no additional complaints except as documented Physical Exam General General appearance: alert and in no apparent distress Comment: Cervical collar in place Head Head exam: atraumatic and normocephalic Eye Eye exam: Present normal appearance, PERRL and EOMI ENT ENT exam: Present normal external ear exam Neck Neck exam: Present normal inspection and trachea midline; Absent tenderness Chest Chest inspection: Present symmetric chest wall rise Respiratory Respiratory exam: Present normal lung sounds bilaterally; Absent respiratory distress, wheezes or stridor Cardiovascular Cardiovascular exam: Present regular rate and normal rhythm Abdominal Exam Abdominal exam: Present soft; Absent tenderness or guarding exam: Present deferred Extremities Exam Extremities exam: Present normal inspection and other (RLE: abrasion and tenderness over the right patella without swelling. FROM at the knee. 2+ DP pulses, sensation intact.) Back Exam Back exam: Present normal inspection; Absent tenderness Neurological Exam Neurological exam: Present alert and oriented X3 Psychiatric Psychiatric exam: Present normal affect Skin Skin exam: Present warm and dry Medical Decision Making Medical Records Screening: Per USPSTF and CDC recommendations, given the prevalence of disease in our region, it is our hospital?s policy to screen for HIV and viral Hepatitis for all patients aged 18 and over and those with ongoing risk factors. Ruddy Inquiry Pt receiving controlled substance: No Vital Signs: 09/18/24 15:28 09/18/24 15:29 09/18/24 16:22 Temperature 98.5 F Temperature Source Oral Pulse Rate 87 81 Pulse Rate [Right] 102 H Respiratory Rate 19 Blood Pressure 176/93 H 141/57 H Blood Pressure [Right Radial Artery] 175/93 H Blood Pressure Mean Blood Pressure Mean [Right Radial Artery] 120 Blood Pressure Source [Right Radial Artery] Automatic Cuff 02 Sat by Pulse Oximetry 96 96 97 Oxygen Delivery Method Room Air Room Air Room Air 09/18/24 16:31 09/18/24 17:00 09/18/24 17:15 Temperature Temperature Source Pulse Rate 74 72 80 Pulse Rate [Right] Respiratory Rate 18 18 Blood Pressure 122/61 116/69 105/61 L Blood Pressure [Right Radial Artery] Blood Pressure Mean 84 87 Blood Pressure Mean [Right Radial Artery] Blood Pressure Source [Right Radial Artery] 02 Sat by Pulse Oximetry 97 98 100 Oxygen Delivery Method Room Air 09/18/24 17:31 Temperature Temperature Source Pulse Rate 75 Pulse Rate [Right] Respiratory Rate Blood Pressure 150/67 H Blood Pressure [Right Radial Artery] Blood Pressure Mean Blood Pressure Mean [Right Radial Artery] Blood Pressure Source [Right Radial Artery] 02 Sat by Pulse Oximetry 97 Oxygen Delivery Method Room Air Lab Data Lab Results 09/18/24 15:20: WBC 9.3, RBC 3.96 L, Hgb 12.6 L, Hct 37.5 L, MCV 94.7 H, MCH 31.8 H, MCHC 33.6, RDW 12.3, Plt Count 313, MPV 9.4, Neut % (Auto) 48.3, Lymph % (Auto) 35.4, Kershaw % (Auto) 11.3 H, Eos % (Auto) 3.1, Baso % (Auto) 0.9, Neut # (Auto) 4.5, Lymph # (Auto) 3.3, Kershaw # (Auto) 1.1 H, Eos # (Auto) 0.3, Baso # (Auto) 0.1, PT 11.3, INR 1.02, APTT 24.3, Sodium 141, Potassium 4.0, Chloride 106, Carbon Dioxide 19 L, Anion Gap 20.0 H, BUN 20, Creatinine 1.00, Estimated Creat Clear 75, Estimated GFR 74, Est GFR ( Amer) 89, Glucose 97, Calcium 9.5, Total Bilirubin 0.5, AST 27, ALT 26, Alkaline Phosphatase 132 H, Total Protein 8.0, Albumin 4.4, Globulin 3.6 H, Albumin/Globulin Ratio 1.2 09/18/24 15:20 09/18/24 15:20 Orders (Tests/Meds): ED MEDICATIONS Discontinued Medications Generic Name Dose Route Start Last Admin Trade Name Tila PRN Reason Stop Dose Admin Acetaminophen 1,000 mg 09/18/24 15:31 09/18/24 16:16 Acetaminophen 500mg Tab PO 09/18/24 15:32 1,000 mg ONCE ONE Administration ORDERS Category Date Time Status CT cervical spine wo con Stat Cat Scan 09/18/24 15:[address] head/brain wo con Stat Cat Scan 09/18/24 15:31 Completed CXR --portable [XR chest portable] Stat Exams 09/18/24 15:31 Completed Fibula/tibia XR right 2 views [XR tibia fibula RT 2V] Exams 09/18/24 15:31 Taken Stat Knee XR right 2 views [XR knee RT 2V] Stat Exams 09/18/24 15:31 Completed CBC w/Auto Diff [Complete Blood Count Auto Diff] Stat Lab 09/18/24 15:20 Completed CMP [Comprehensive Metabolic Panel] Stat Lab 09/18/24 15:20 Completed PT INR [Prothrombin Time INR] Stat Lab 09/18/24 15:20 Completed PTT [Activated Partial Thrombo Time] Stat Lab 09/18/24 15:20 Completed Medical Decision Narrative: Marshall Schroeder is a 68-year-old male with past medical history of frequent falls, anxiety, Alzheimer's, schizophrenia, who presents to the emergency department from [facility] after a fall. Reportedly, patient has had 2 falls today, they were able to catch him before he fell to the ground on the first 1, however second fall he fell to the ground and hit his right knee. EMS reports that he did strike his head but no loss of consciousness. No blood thinner use. Patient denies headache or vision changes or neck pain or back pain or abdominal pain or chest pain or shortness of breath. Patient is complaining of pain in his right knee. He denies any numbness, tingling or weakness. On arrival, patient is hypertensive with blood pressure 175/93, borderline tachycardic, breathing comfortably on room air with oxygen saturation 96% SpO2. Physical exam, stated above, revealed an overall well-appearing male in no distress. He is alert, answering questions appropriately. He has an abrasion over his right knee with no swelling or erythema. He has full range of motion at the knee. Neuro vastly intact distally. 2+ DP and PT pulses. Sensation grossly intact to the right lower extremity. Abdomen soft, nontender nondistended. Cardiopulmonary exam is unremarkable. Patient is a cervical collar in place but has no midline C/T/L-spine tenderness. No evidence of trauma to the head. Pupils equal round and reactive to light. Differential diagnosis includes, but is not limited to: Intracranial hemorrhage, skull fracture, cervical spine fracture, patella fracture, tibial plateau fracture, soft tissue injury, electrolyte derangement, anemia, among others. The most morbid conditions were considered and workup was based on these. Workup in the emergency department included: His CT head without contrast, CT C- spine without contrast, right knee x-rays, right tib-fib x-rays, chest x-ray, CBC, CMP, PT/INR. Patient was given 1 g of Tylenol for his symptoms. Patient's workup was interpreted by me personally. CBC with no leukocytosis, hemoglobin 12.6 and hematocrit 37.5 (at baseline), coagulation studies within normal limits, CMP with sodium normal at 141, potassium normal 4.0, anion gap elevated at [address] and x-ray imaging interpreted by me personally. No intracranial hemorrhage. No significant motion artifact with CT of the cervical spine. However, patient's C-spine was cleared as patient has no midline tenderness and has full range of motion of his neck. No acute pathology within the chest with no focal consolidation, pneumothorax or rib fractures. No fractures of the right knee/tib-fib. Given this, it is felt the patient is appropriate for discharge at this time as patient has no acute pathology on his imaging or laboratory workup. Return precautions were given. All questions were answered. He demonstrated understanding and was in agreement this plan. He was then discharged from the emergency department in stable condition. Critical Care Critical Care Time Critical Care Time: No
--- OUTSIDE RECORDS SUMMARY | 2024-09-18 15:37 | XMS_ITS | Clinical Summary ---
Author Organization [facility] [place] Address [address] [place] [address] Care Team Providers Care Director Of Field Service Name Role Phone Avelino Maynard APRN Primary Care Provider [phone] Allergies No known active allergies Medications haloperidol (Haldol) 10 MG tablet Take 1 tablet (10 mg) by mouth 2 (two) times a day. 01/09/2023 Active omeprazole (PriLOSEC) [address] capsule Take 1 capsule (40 mg) by mouth every night. 01/09/2023 Active Multiple Vitamin (multivitamin) tablet Take 1 tablet by mouth 1 (one) time each day. Active benztropine (Cogentin) 1 MG tablet Take 1 tablet (1 mg) by mouth 2 (two) times a day. 05/13/2023 Active citalopram (CeleXA) 10 MG tablet Take 1 tablet (10 mg) by mouth every night. 05/13/2023 Active cholecalciferol 1000 units capsule Take 2,000 Units by mouth 1 (one) time each day. 30 capsule 05/14/2023 Active acetaminophen (Tylenol) 500 MG tablet Take 2 tablets (1,000 mg) by mouth every 6 (six) hours if needed for pain. 100 tablet 05/13/2023 Active ferrous sulfate 324 MG tablet delayed-release Take 1 tablet (324 mg) by mouth 1 (one) time each day with breakfast. Do not crush, chew, or split. 30 tablet 05/14/2023 Active folic acid (Folvite) 1 MG tablet Take 1 tablet (1 mg) by mouth 1 (one) time each day. 05/14/2023 Active methocarbamol (Robaxin) 500 MG tablet Take 1 tablet (500 mg) by mouth 4 (four) times a day. 05/13/2023 Active polyethylene glycol (Miralax) 17 g packet Take 17 g by mouth 1 (one) time each day. 05/14/2023 Active Active Problems Problem Noted Date Diagnosed Date Intertrochanteric fracture o f left femur, closed, initial encounter 05/04/2023 Schizoaffective disorder 05/04/2023 Gastroesophageal reflux disease without esophagi tis 05/04/2023 Normocytic anemia 05/04/2023 Closed displaced intertrocha nteric fracture of left femur, initial encounter 05/04/2023 Immunizations Immunization Administration Dates Next Due Influenza Vaccine, Quadrivalent, Adjuvanted 01/16 Influenza, high-dose, quadrivalent 01/22/2023 Tdap 07/28/2015 Social History Tobacco Use Types Packs/Day Years Used Date Smoking Tobacco: Unknown Tobacco Cessation:Counseling Given: Not Answered Alcohol Use Standard Drinks/Week Comments Never 0 (1 standard drink = 0.6 oz pur e alcohol) Humiliation, Afraid, Rape, and Kick questionnair e Answer Date Recorded Within the last year, have y ou been afraid of your partner or ex-partner? No 05/07/2023 Within the last year, have y ou been humiliated or emotionally abused in other ways by your partner or ex-partner? No Within the last year, have y ou been kicked, hit, slapped, or otherwise physically hurt by your partner or ex-partner? No 05/07/2023 Within the last year, have y ou been raped or forced to have any kind of sexual activity by your partner or ex-partner? No 05/07/2023 PHQ-2 Answer Date Recorded Patient Health Questionnaire-2 Score 0 05/20/2023 Hunger Vital Sign Answer Date Recorded Within the past 12 months, y ou worried that your food would run out before you got the money to buy more. Never true 05/07/19 24 Within the past 12 months, t he food you bought just didn't last and you didn't have money to get more. Never true 05/07/2023 PRAPARE - Transportation Answer Date Re corded In the past 12 months, has l ack of transportation kept you from medical appointments or from getting medications? No 04/19 In the past 12 months, has l ack of transportation kept you from meetings, work, or from getting things needed for daily living? No 05/07/2023 Housing Stability Vital Sign Answer J Carlos e Recorded In the last 12 months, was t here a time when you were not able to pay the mortgage or rent on time? No 05/07/2023 In the last 12 months, how many places have you lived? 1 05/07/2023 In the last 12 months, was t here a time when you did not have a steady place to sleep or slept in a care home (including now)? No 05/07/2023 Utilities Answer Date Recorded In the past 12 months has th e electric, gas, oil, or water company threatened to shut off services in your home? No 05/07/2023 Sex and Gender Information Value Date Recorded Sex Assigned at Not on file Legal Sex Male 8:52 PM EDT Gender Identity Not on file Sexual Orientation Not on file Last Filed Vital Signs Vital Sign Reading Time Taken Comments Blood Pressure 111/76 05/20/2023 11:09 AM EST Pulse 71 05/20/2023 11:09 AM EST Temperature 36.7 C (98 F) 05/20/2023 11:09 AM EST Respiratory Rate 16 05/13/2023 7:38 AM EST Oxygen Saturation 96% 05/20/2023 11: 09 AM EST Inhaled Oxygen Concentration - - Weight 64.3 kg (141 lb 12.8 oz) 024 11:09 AM EST Height 171.5 cm (5' 7.5 ) 05/20/2023 11 :09 AM EST Body Mass Index 21.88 05/20/2023 11:09 AM EST Plan of Treatment Health Maintenance Due Date Last Done Comments [facility]-Bone Density Scan 1955 [facility]Medicare Annual Wellness (AWV) 1955 [facility]-Infant/Child/Adol SDOH Screenings 1955 [facility]- SDOH Screenings 10/23/1971 [facility]-Adult SDOH Screenings 10/23/1971 CT Colonography 1998 Colonoscopy 1998 FIT-DNA 1998 FIT 1998 FOBT 1998 Sigmoidoscopy 1998 [facility]-Colorectal Cancer Screening 1998 [facility]-Pneumococcal Vaccine: 50 + Years (1 of 1 - PCV) 10/23/2003 [facility]-Zoster Vaccines (1 of 2) 10/23/2003 [id number] Vaccine (1 - 2023-25 season) 2023 [facility]-Depression Screening 05/19/2024 05/20/2023 [facility]-Influenza Vaccine (Seaso n Ended) 2024 01/22/2023, 01/26/2022 [facility]-DTaP,Tdap,and Td Vaccine s (2 - Td or Tdap) 07/27/2025 07/28/2015 [facility]-RSV Vaccine: 60+ Years o r (1 - 1-dose 75+ series) 2028 [facility]-Hepatitis C Screening Completed 05/04/2023 HPV Vaccines Aged Out No longer eligi ble based on patient's age to complete this topic [facility]-HIB Vaccines Aged Out No longer e ligible based on patient's age to complete this topic [facility]-Hepatitis A Vaccines Aged Out No longer eligible based on patient's age to complete this topic [facility]-IPV Vaccines Aged Out No longer e ligible based on patient's age to complete this topic [facility]-Rotavirus Vaccines Aged Out No lo nger eligible based on patient's age to complete this topic Medical Devices Implanted Type Area Battery Engineer Device Identifier Shelf Expiration Date Model / Serial / Lot Nail Long Troch Kit Ti [id number] - [id number] Implanted:Qty: 1 on 05/05/2023 by Sebastian Hall MD at [facility] Nail Left: Femur [employer] ([facility])-[id number] 11/16/2027 [id number] / / [id number] Screw Lag Gamma3 10.5mm Ti 105mm - [id number] Implanted:Qty: 1 on 05/05/2023 by Sebastian Hall MD at [facility] Screw Left: Femur [employer] ([facility][id number] 11/16/2027 [id number] / / [id number] Screw 5.0mm Lock Full Thrd 32.5mm - [id number] Implanted:Qty: 1 on 05/05/2023 by Sebastian Hall MD at [facility] Screw Left: Femur [employer] ([employer])-[id number] 11/16/2027 [id number] / / [id number] Procedures Procedure Name Priority Date/Time Associated Diagnosis Comments HEPATITIS C ANTIBODY - ED W/REFLEX TO HCV QUANT PCR STAT 05/04/2023 1:29 AM EST from Last 3 Months or Most Recently Relevant to Health Maintenance Results * (ABNORMAL) Hepatitis C Antibody - ED (05/04/2023 1:29 AM EST) Hepatitis C Antibody Positive(A ) Negative 05/04/2023 2:30 AM EST [facility]ALTH[facility]ARE [facility] Blood Venous blood specimen / Unknown Venipuncture / Unknown 05/04/2023 1:29 AM EST 05/04/2023 1:47 AM EST us Brynn Sanchez MD LAB BLOOD ORDERABLES Final Re sult [facility] [address] [place] [address] from Last 3 Months or Most Recently Relevant to Health Maintenance Insurance [employer] Care Teams Director Of Field Service Relationship Specialty Start Date End Date Avelino Maynard APRN [address] [place] [address] PCP - General 05/04/23
[2024-09-18 15:40] LABS: Hematocrit 37.5 % (42.0-52.0); Hemoglobin 12.6 g/dL (14.1-18.0); Immature Granulocytes % 1.0 %; Mean Corpuscular HGB Conc 33.6 g/dL (31.8-35.4); Mean Corpuscular Hemoglobin 31.8 pg (27.0-31.2); Mean Corpuscular Volume 94.7 fl (80-94); Nucleated Red Blood Cells % 0 %; Platelet Count 313 K/mm3 (142-424); Red Blood Count 3.96 M/mm3 (4.60-6.20); Red Cell Distribution Width-SD 42.7 fL; White Blood Count 9.3 K/mm3 (4.8-10.8)
[2024-09-18 15:54] LABS: Activated Partial Thrombo Time 24.3 seconds (22.8-30.6); INR 1.02 (0.9-1.1); Prothrombin Time 11.3 seconds (10.1-12.5)
[2024-09-18 15:55] LABS: Albumin Level 4.4 g/dl (3.5-5.0); Chloride 106 mmol/L (98-107); Potassium 4.0 mmoL/L (3.5-5.1); Sodium 141 mmol/L (136-145)
[2024-09-18 15:58] LABS: Alanine Aminotransferase 26 U/L (12-78); Albumin/Globulin Ratio 1.2 (1.1-1.8); Alkaline Phosphatase 132 U/L (38-126); Anion Gap 20.0 mEq/L (5-15); Aspartate Amino Transferase 27 U/L (17-59); Bilirubin,Total 0.5 mg/dl (0.2-1.3); Blood Urea Nitrogen 20 mg/dl (9-20); Carbon Dioxide 19 mmol/L (22.0-30.0); Creatinine Clearance Estimated 75 mL/min (50-200); Creatinine,Serum 1.00 mg/dl (0.66-1.25); Estimated Glomerular Filt Rate 74 ml/min (>60); GFR (African American) 89 ML/MIN (>60); Globulin 3.6 g/dL (1.3-3.2); Total Protein,Serum 8.0 g/dl (6.3-8.2)
[2024-09-18 15:59] LABS: Calcium 9.5 mg/dl (8.4-10.2); Glucose 97 mg/dl (74-100)
[2024-09-18] MEDS: ACETAMINOPHEN 500MG TAB 1000 MG PO (16:16)
--- NOTE | 2024-09-18 17:53 | PC.NURSE ---
call made to [facility] about pt scans, eva states that they are locked in and reading them now.
--- NOTE | 2024-09-18 18:39 | PC.NURSE ---
called [facility] to let them know pt is ready for discharge. staff advised they would be sending someone to pick him up.
== END 2024-09-18 18:56 | disposition home or self-care (01) ==
PROVIDERS: Emergency Provider Student in an Organized Health Care Education/Training Program
DX: S80.211A Abrasion, right knee, initial encounter (principal); W19.XXXA Unspecified fall, initial encounter
CPT/HCPCS: 70450; 71045; 72125; 73560; 73590; 80053; 85025; 85610; 85730; 99285

== ENCOUNTER 2024-10-02 12:13 | Emergency (ER) | payer MEDICARE, MEDICAID, SELFPAY ==
--- OUTSIDE RECORDS SUMMARY | 2024-10-02 12:18 | XMS_ITS | Clinical Summary ---
Author Organization [facility] Address [address] [place] [address] Care Team Providers Care Installation Engineer Name Role Phone Avelino Maynard APRN Primary Care Provider [phone] Allergies No known active allergies Medications haloperidol [...] place to sleep or slept in a custodial (including now)? No 05/07/2023 Utilities Answer Date [...] Scan 1955 [facility]Medicare Annual Wellness (AWV) 1955 [facility]-/Child/Adol SDOH Screenings 1955 [facility]- SDOH Screenings 10/23/1971 [facility]-Adult SDOH Screenings 10/23/1971 CT Colonography 1998 Colonoscopy 1998 FIT-DNA 1998 FIT 1998 FOBT 1998 Sigmoidoscopy 1998 [facility]-Colorectal Cancer Screening 1998 [facility]-Pneumococcal Vaccine: 50 + Years (1 of 1 - PCV) 10/23/2003 [facility]-Zoster Vaccines (1 of 2) 10/23/2003 [id number] Vaccine (1 - 2023-25 season) 2023 [facility]-Depression Screening 05/19/2024 05/20/2023 [facility]-Influenza Vaccine (#1) 11/16/202401/22, 01/26/2022 [facility]-DTaP,Tdap,and Td Vaccine s (2 - [...] this topic Medical Devices Implanted Type Area Electromedical Equipment Repairer Device Identifier Shelf Expiration Date Model / Serial / Lot Nail Long Troch Kit Ti [id number] - [id number] Implanted:Qty: 1 on 05/05/2023 by Sebastian Hall MD at [facility] Nail Left: Femur [employer] ([facility])-[id number] 11/16/2027 [id number] / / [id number] Screw Lag Gamma3 10.5mm Ti 105mm - [id number] Implanted:Qty: 1 on 05/05/2023 by Sebastian Hall MD at [facility] Screw Left: Femur [employer] ([facility][id number] 11/16/2027 [id number] / / [id number] Screw 5.0mm Lock Full Thrd 32.5mm - [id number] Implanted:Qty: 1 on 05/05/2023 by Sebastian Hall MD at [facility] Screw Left: Femur [employer] ([employer])-[id number] 11/16/2027 [id number] / / [id number] Procedures Procedure Name Priority Date/Time Associated Diagnosis [...] 1:29 AM EST 05/04/2023 1:47 AM EST Brynn Sanchez MD LAB BLOOD ORDERABLES Final Re sult [facility] [address] [place] [address] from Last 3 Months or Most Recently Relevant to Health Maintenance Insurance [employer] Care Teams Installation Engineer Relationship Specialty Start Date End Date Avelino Maynard APRN [address] [place] [address] PCP - General 05/04/23
--- NOTE | 2024-10-02 12:23 | HMH.EDGENADL ---
Discharge Plan Disposition Patient Disposition: Home, Self-Care Prescriptions Prescriptions: No Action multivitamin [Multi-Vitamin] Tablet 1 tab PO DAILY citalopram 10 mg Tablet 5 mg PO DAILY omeprazole 40 mg Capsule,Delayed Release(Dr/Ec) 40 mg PO DAILY haloperidol 10 mg Tablet 10 mg PO BID benztropine 1 mg Tablet 1 mg PO DAILY Referrals Follow up/Referrals: Provider,Referral, MD [Primary Care Provider, Medical] - See instructions Activity Restrictions/Add. Instructions Additional Instructions/Restrictions: If any problems or concerns arise please return to ER or see PCP. Clinical Impressions Clinical Impression: Fall Instructions Patient Instructions: How to Prevent Falls Print Language Print Language: Micronesian Discharge ED Provider: Yao Lewis General Adult HPI <Akila Lee (ED), PIERCING MACHINE OPERATOR - Last Filed: 10/02/24 18:51> General Chief complaint: Fall Stated complaint: Fall Time Seen by Provider: 10/02/24 12:14 History of Present Illness HPI narrative: 68-year-old male presents from [place] via EMS for a trip and fall incident. He says that he fell over his own feet. He denies loss of consciousness. He is not on blood thinners. He denies any pain. He is alert and oriented x 4. Vitals are stable. Patient has good range of motion of his neck. He has no back pain, no hip pain, no leg pain, no chest or abdominal pain. No other problems or concerns today. Related Data Home Medications ?Medication ?Instructions ?Recorded ?Confirmed benztropine 1 mg tablet 1 mg PO DAILY 05/02/23 05/02/23 citalopram 10 mg tablet 5 mg PO DAILY 05/02/23 05/02/23 haloperidol 10 mg tablet 10 mg PO BID 05/02/23 05/02/23 multivitamin 1 tab PO DAILY 05/02/23 05/02/23 omeprazole 40 mg capsule,delayed 40 mg PO DAILY 05/02/23 05/02/23 release Allergies Allergy/AdvReac Type Severity Reaction Status Date / Time No Known Allergies Allergy Verified 08/07/24 11:03 PFS <Akila Lee (ED), PIERCING MACHINE OPERATOR - Last Filed: 10/02/24 18:51> [facility], LAT[facility] Disclaimer: The information contained in this section may have been updated after the patient was seen, as this information can be updated by other users. Social History (Updated 05/03/23 @ 01:40 by Myra Montes DO) Smoking Status: Current every day smoker alcohol intake: never current occupational status: unemployed Travel in the last 8 weeks?: None <Akila Adelejuliet (ED), PIERCING MACHINE OPERATOR - Last Filed: 10/02/24 18:51> ROS Obtained: Yes Systems reviewed as appropriate & no additional complaints except as documented Constitutional Constitutional: Reports as per HPI Physical Exam <Akilaradha Lee (ED), PIERCING MACHINE OPERATOR - Last Filed: 10/02/24 18:51> General General appearance: alert and in no apparent distress Head Head exam: atraumatic and normocephalic Eye Eye exam: Present normal appearance, PERRL and EOMI ENT ENT exam: Present normal oropharynx and mucous membranes moist Neck Neck exam: Present normal inspection, full ROM and trachea midline Chest Chest inspection: Present normal inspection Respiratory Respiratory exam: Present normal lung sounds bilaterally Cardiovascular Cardiovascular exam: Present regular rate, normal rhythm, normal heart sounds, +S1 and +S2 Abdominal Exam Abdominal exam: Present soft and normal bowel sounds Extremities Exam Extremities exam: Present normal inspection, full ROM and normal capillary refill Back Exam Back exam: Present normal inspection Neurological Exam Neurological exam: Present alert and oriented X3 Psychiatric Psychiatric exam: Present normal affect Skin Skin exam: Present warm, dry and intact Medical Decision Making <Akila Adelejuliet (ED), PIERCING MACHINE OPERATOR - Last Filed: 10/02/24 18:51> Medical Records Screening: Per USPSTF and CDC recommendations, given the prevalence of disease in our region, it is our hospital?s policy to screen for HIV and viral Hepatitis for all patients aged 18 and over and those with ongoing risk factors. Ruddy Inquiry Pt receiving controlled substance: No Ruddy was queried for this patient: No Vital Signs: 10/02/24 12:33 10/02/24 12:33 Temperature 98.1 F 98.1 F Temperature Source Oral Pulse Rate 73 Pulse Rate [Right Brachial] 80 Respiratory Rate 13 18 Blood Pressure 117/68 Blood Pressure [Right Arm] 122/81 Blood Pressure Mean [Right Arm] 94 02 Sat by Pulse Oximetry 99 Oxygen Delivery Method Room Air Medical Decision Narrative: patient is a 68-year-old male presenting to the emergency department for evaluation of fall. Patient is hemodynamically stable and nontoxic-appearing upon arrival, afebrile. Differential diagnosis includes injury from fall, among others. Did complete physical exam and patient has no pain or injuries. Discussed with Dr. Lewis and we will have patient follow-up with PCP if any problems or concerns arise. Patient is safe for discharge home as he has no pain or complaints. Patient may return to [place] <Yao Lewis MD - Last Filed: 10/02/24 22:35> Vital Signs: 10/02/24 12:33 10/02/24 12:33 Temperature 98.1 F 98.1 F Temperature Source Oral Pulse Rate 73 Pulse Rate [Right Brachial] 80 Respiratory Rate 13 18 Blood Pressure 117/68 Blood Pressure [Right Arm] 122/81 Blood Pressure Mean [Right Arm] 94 02 Sat by Pulse Oximetry 99 Oxygen Delivery Method Room Air Medical Decision Narrative: patient is a 68-year-old male presenting to the emergency department for evaluation of fall. Patient is hemodynamically stable and nontoxic-appearing upon arrival, afebrile. Differential diagnosis includes injury from fall, among others. Did complete physical exam and patient has no pain or injuries. Discussed with Dr. Lewis and we will have patient follow-up with PCP if any problems or concerns arise. Patient is safe for discharge home as he has no pain or complaints. Patient may return to [place] I was consulted by the LUIS, and we discussed the complexity of the problems being addressed. I approve the treatment and management plan for this patient's care in the emergency department, thus performing a substantive portion of the medical decision making. Given the patient has no complaints of pain, and the fall was mechanical in nature, with reassuring physical exam and vital signs, it is felt that no imaging studies or laboratory studies are indicated at this time. Agree with return precautions but it is felt that patient is safe for discharge at this time. Yao Lewis MD Critical Care <Akila Lee (ED), PIERCING MACHINE OPERATOR - Last Filed: 10/02/24 18:51> Critical Care Time Critical Care Time: No
[2024-10-02 12:33] VITALS: BP 117/68; BP 122/81; PULSE 73; PULSE 80; RESP 13; RESP 18; TEMP 36.7; O2SAT 97; O2SAT 99; BMI 19.0
--- NOTE | 2024-10-02 12:40 | PC.NURSE ---
Called [facility] to arrange transportation, they stated they will send someone for steel pickler.
--- NOTE | 2024-10-02 13:37 | PC.NURSE ---
1251 called [facility] to see about transporting this pt back to [place]. [facility] said that they were heaed to [place] and then to [facility] and it would be a little while
--- NOTE | 2024-10-02 14:35 | PC.NURSE ---
[facility] here at this time to transport patient back to [facility].
== END 2024-10-02 14:34 | disposition home or self-care (01) ==
PROVIDERS: Emergency Provider Student in an Organized Health Care Education/Training Program
DX: Z00.00 Encounter for general adult medical examination without abnormal findings (principal); W19.XXXA Unspecified fall, initial encounter
CPT/HCPCS: 99282

== ENCOUNTER 2025-02-01 11:50 | Emergency (ER) | payer MEDICARE, MEDICAID, SELFPAY ==
[2025-02-01 11:49] VITALS: BP 143/67; PULSE 78; RESP 18; TEMP 36.4; O2SAT 96; BMI 28.0
--- NOTE | 2025-02-01 11:55 | CT_ITS ---
FINAL REPORT TECHNIQUE: Axial images were obtained from skull base to the thoracic inlet by computed tomography. Coronal and sagittal reconstruction process performed. This study was performed with techniques to keep radiation doses as low as reasonably achievable (ALARA). Individualized dose reduction techniques using automated exposure control or adjustment of mA and/or kV according to the patient''s size were employed. CLINICAL HISTORY: fall injury COMPARISON: 09/18/2024 FINDINGS: There is no acute fracture or subluxation. There is significant disc space narrowing from C3-4 through C6-7. Vertebrae are normal height. There is no malalignment. There is endplate hypertrophy present eccentric to the right with significant right neuroforaminal narrowing at C4-5, C5-6 and C6-7, most evident at C5-6. Precervical soft tissues are unremarkable. There are moderate changes of centrilobular emphysema. IMPRESSION: Degenerative pains without acute fracture. Reviewed, Interpreted and Dictated by Leonel Leigh MD Transcribed by Aarti Poe Authenticated and [facility]
--- NOTE | 2025-02-01 11:55 | CT_ITS ---
FINAL REPORT TECHNIQUE: multiple axial CT images were performed from the foramen magnum to the vertex without enhancement. This study was performed with techniques to keep radiation doses as low as reasonably achievable (ALARA). Individualized dose reduction techniques using automated exposure control or adjustment of mA and/or kV according to the patient's size were employed. CLINICAL HISTORY: fall, head injury COMPARISON: 09/18/2024 FINDINGS: The ventricles are enlarged. There is diffuse atrophy. There is no evidence of hemorrhage. No masses are identified. No extra-axial fluid is seen. There is lobular mucoperiosteal thickening within the left cell of the sphenoid sinus. Paranasal sinuses are otherwise well aerated. No air-fluid level is seen. IMPRESSION: Atrophy without acute process. Reviewed, Interpreted and Dictated by Leonel Leigh MD Transcribed by Aarti Poe Authenticated and . [facility]
--- NOTE | 2025-02-01 11:56 | HMH.EDGENADL ---
Discharge Plan Disposition Patient Disposition: Home, Self-Care Prescriptions Prescriptions: No Action multivitamin [Multi-Vitamin] Tablet 1 tab PO DAILY citalopram 10 mg Tablet 5 mg PO DAILY omeprazole 40 mg Capsule,Delayed Release(Dr/Ec) 40 mg PO DAILY haloperidol 10 mg Tablet 10 mg PO BID benztropine 1 mg Tablet 1 mg PO DAILY Referrals Follow up/Referrals: Provider,Referral, MD [Referring, Medical] - See instructions Activity Restrictions/Add. Instructions Additional Instructions/Restrictions: No evidence of any fracture or dislocation. Clinical Impressions Clinical Impression: Abrasion of scalp, Fall, Minor head injury Print Language Print Language: Chadian Discharge ED Provider: Deric Flores General Adult HPI General Chief complaint: Fall Stated complaint: Fall Time Seen by Provider: 02/01/25 11:52 History of Present Illness HPI narrative: Patient is a 69-year-old from [place] about an unwitnessed fall today striking the back of his head. He states that he just fell denies any pain or injuries elsewhere. He is a very poor historian and intermittently has been not communicating with nursing staff but was able to speak to me. From chart review standpoint is not on any blood thinners. Related Data Home Medications ?Medication ?Instructions ?Recorded ?Confirmed benztropine 1 mg tablet 1 mg PO DAILY 05/02/23 05/02/23 citalopram 10 mg tablet 5 mg PO DAILY 05/02/23 05/02/23 haloperidol 10 mg tablet 10 mg PO BID 05/02/23 05/02/23 multivitamin 1 tab PO DAILY 05/02/23 05/02/23 omeprazole 40 mg capsule,delayed 40 mg PO DAILY 05/02/23 05/02/23 release Allergies Allergy/AdvReac Type Severity Reaction Status Date / Time No Known Allergies Allergy Verified 08/07/24 11:03 [facility] Disclaimer: The information contained in this section may have been updated after the patient was seen, as this information can be updated by other users. Social History (Updated 05/03/23 @ 01:40 by Myra Montes DO) Smoking Status: Never smoker alcohol intake: never current occupational status: unemployed Travel in the last 8 weeks?: None Have you lived/traveled outside US in past 30 days?: No Contact w/someone who lives/traveled outside US past 30 days?: No Exposure to someone with infectious disease in past 14 days?: No Do you have a fever (greater than 100.4 F or 38 C)?: No Have you tested positive for COVID-19?: No Exposed to someone with COVID-19 in past 14 days?: No Do you have a sore throat?: No Do you have a cough?: No Do you have any weakness?: No Do you have any diarrhea?: No Are you experiencing any unusual bleeding?: No Do you have any muscle aches/pain?: No Do you have any abdominal pain?: No Are you experiencing loss of taste or smell?: No ROS Obtained: Yes All systems reviewed & no additional complaints except as documented Physical Exam General General appearance: alert and in no apparent distress Head Head exam: other (Small scalp abrasion on the posterior occipital region no lacerations evidence of depressible fracture Harden sign or raccoon eyes) Neck Neck exam: Absent tenderness Respiratory Respiratory exam: Present normal lung sounds bilaterally Cardiovascular Cardiovascular exam: Present regular rate Neurological Exam Neurological exam: Present alert, CN II-XII intact and other (Nonfocal); Absent motor sensory deficit Medical Decision Making Medical Records Screening: Per USPSTF and CDC recommendations, given the prevalence of disease in our region, it is our hospital?s policy to screen for HIV and viral Hepatitis for all patients aged 18 and over and those with ongoing risk factors. Ruddy Inquiry Pt receiving controlled substance: No Vital Signs: 02/01/25 11:49 02/01/25 12:31 Temperature 97.6 F Temperature Source Oral Pulse Rate 72 Pulse Rate [Right] 78 Respiratory Rate 18 18 Blood Pressure 105/63 L Blood Pressure [Right Arm] 143/67 H Blood Pressure Mean [Right Arm] 92 Blood Pressure Source Automatic Cuff Blood Pressure Position Sitting 02 Sat by Pulse Oximetry 96 95 Oxygen Delivery Method Room Air Room Air Orders (Tests/Meds): ORDERS Category Date Time Status CT cervical spine wo con Stat Cat Scan 02/01/25 11:[address] head/brain wo con Stat Cat Scan 02/01/25 11:55 Completed Medical Decision Narrative: 69-year-old from [place] awake and alert normally interactive with me minor head injury with scalp abrasion given his age we will get a noncontrasted CT scan of the patient's head and cervical spine and reassess. I do not suspect trauma elsewhere. Reassessment 1:[address] scans performed which I personally interpreted shows no evidence of any acute abnormalities radiology read consistent with as well patient discharged in stable condition. Critical Care Critical Care Time Critical Care Time: No
[2025-02-01 12:31] VITALS: BP 105/63; PULSE 72; RESP 18; O2SAT 95
--- NOTE | 2025-02-01 12:31 | PC.NURSE ---
Pt to CT via stretcher
[2025-02-01 13:21] VITALS: BP 137/82; PULSE 72; RESP 18; TEMP 36.7; O2SAT 98
== END 2025-02-01 13:30 | disposition home or self-care (01) ==
PROVIDERS: Emergency Provider Student in an Organized Health Care Education/Training Program; PCP Nurse Practitioner Family
DX: S09.90XA Unspecified injury of head, initial encounter (principal); S00.01XA Abrasion of scalp, initial encounter; W19.XXXA Unspecified fall, initial encounter; E87.5 Hyperkalemia
CPT/HCPCS: 70450; 72125; 99285

== ENCOUNTER 2025-03-06 21:47 | Inpatient (IN) | payer MEDICARE, MEDICAID, SELFPAY ==
--- NOTE | 2025-03-06 21:31 | CT_ITS ---
PROCEDURE INFORMATION: Exam: CT Abdomen And Pelvis With Contrast Exam date and time: 03/06/2025 10:17 PM Age: 69 years old Clinical indication: Other: Concern for sepsis TECHNIQUE: Imaging protocol: Computed tomography of the abdomen and pelvis with contrast. Radiation optimization: All CT scans at this facility use at least one of these dose optimization techniques: automated exposure control; mA and/or kV adjustment per patient size (includes targeted exams where dose is matched to clinical indication); or iterative reconstruction. Contrast material: ISOVUE; Contrast volume: 70 ml; Contrast route: IV; COMPARISON: CT BONY PELVIS 07/08/2024 12:59 PM FINDINGS: Diaphragm: Small sliding-type hiatal hernia. Liver: Normal. No mass. Gallbladder and biliary ducts: Normal. No calcified stones. No ductal dilation. Pancreas: Normal. No ductal dilation. Spleen: Normal. No splenomegaly. Adrenal glands: Normal. No mass. Kidneys and ureters: Normal. No hydronephrosis. Stomach and bowel: Unremarkable. No obstruction. No mucosal thickening. Appendix: Dilated fluid-filled appendix with diffuse wall thickening and enhancement as well as surrounding fatty stranding, compatible with acute appendicitis. No evidence of perforation. Intraperitoneal space: Unremarkable. No free air. No significant fluid collection. Vasculature: Moderate atherosclerotic calcification of the aorta and iliac arteries. No aneurysm. Lymph nodes: Unremarkable. No enlarged lymph nodes. Urinary bladder: Unremarkable as visualized. Reproductive: Unremarkable as visualized. Bones/joints: Unremarkable. No acute fracture. Soft tissues: Unremarkable. IMPRESSION: Uncomplicated acute appendicitis
--- NOTE | 2025-03-06 21:31 | CT_ITS ---
PROCEDURE INFORMATION: Exam: CT Head Without Contrast Exam date and time: 03/06/2025 10:12 PM Age: 69 years old Clinical indication: Stroke-like symptoms; Altered mental status/memory loss; Additional info: SOA TECHNIQUE: Imaging protocol: Computed tomography of the head without contrast. Radiation optimization: All CT scans at this facility use at least one of these dose optimization techniques: automated exposure control; mA and/or kV adjustment per patient size (includes targeted exams where dose is matched to clinical indication); or iterative reconstruction. Other technique: STROKE PROTOCOL was implemented. COMPARISON: CT HEAD/BRAIN WO CON 02/01/2025 12:31 PM FINDINGS: Brain: No evidence for intracranial hemorrhage, mass lesions or acute stroke. Intracranial vascular calcifications. Mild small vessel ischemic change in the periventricular white matter. Cerebral ventricles: Mild ventricular prominence. Pituitary gland and sella: Negative Paranasal sinuses: Partial opacification ethmoid and left sphenoid sinus regions. Mastoid air cells: Visualized mastoid air cells are well aerated. Orbital cavities: Negative. Bones: Unremarkable. No acute fracture. Soft tissues: Unremarkable. Vasculature: Negative. Other findings: Mild generalized atrophy. IMPRESSION: 1. No evidence for intracranial hemorrhage, mass lesions or acute stroke. 2. Intracranial vascular calcifications. 3. Mild generalized atrophy. 4. Mild small vessel ischemic change in the periventricular white matter. 5. Mild ventricular prominence. ASSESSMENT: ASPECTS ([place] Stroke Program Early CT Score) is 10.
--- NOTE | 2025-03-06 21:31 | ECG_ITS ---
APPROVED REPORT Exam: Resting ECG HR:102 bpm ECG Measurements Heart Rate 102 AXES TN 149 P 88 QRSd 77 QRS 14 QT 373 T 82 QTc 432 Conclusion SINUS TACHYCARDIA WITH OCCASIONAL SUPRAVENTRICULAR PREMATURE COMPLEXES ABNORMAL RHYTHM ECG UNCONFIRMED REPORT Electronically signed by : VIRGIL PEREZ, 03/07/2025 05:40:15
--- NOTE | 2025-03-06 21:31 | CT_ITS ---
PROCEDURE INFORMATION: Exam: CTA Chest With Contrast Exam date and time: 03/06/2025 10:17 PM Age: 69 years old Clinical indication: Shortness of breath; Additional info: SOA TECHNIQUE: Imaging protocol: Computed tomographic angiography of the chest with contrast. Exam focused on the arteries. 3D rendering (Not supervised by radiologist): MIP and/or 3D reconstructed images were created by the technologist. Radiation optimization: All CT scans at this facility use at least one of these dose optimization techniques: automated exposure control; mA and/or kV adjustment per patient size (includes targeted exams where dose is matched to clinical indication); or iterative reconstruction. Contrast material: ISO; Contrast volume: 70 ml; Contrast route: INTRAVENOUS (IV); COMPARISON: CT CHEST WO CON 07/08/2024 12:56 PM FINDINGS: Pulmonary arteries: Normal. No pulmonary emboli. Aorta: Unremarkable. No aortic aneurysm. No aortic dissection. Lungs: Mild dependent atelectasis in both lungs. Calcified granuloma in the right middle lobe. No active infiltrate. Pleural spaces: Unremarkable. No pneumothorax. No pleural effusion. Heart: Unremarkable. No cardiomegaly. No pericardial effusion. Lymph nodes: Calcified right hilar lymph nodes. No enlarged lymph nodes. Diaphragm: Small sliding-type hiatal hernia. Bones/joints: [id number] degenerative disc changes throughout the thoracic spine. No vertebral body compression. No acute fracture. Soft tissues: Unremarkable. IMPRESSION: No acute abnormality
--- NOTE | 2025-03-06 21:36 | [facility].EDGENADL ---
Discharge Plan Disposition Patient Disposition: Admitted Clinical Impressions Clinical Impression: Appendicitis, Sepsis Discharge ED Provider: Omayra Mcintosh General Adult HPI <Omayra Mcintosh MD - Last Filed: 03/06/25 22:57> General Chief complaint: Shortness of Breath/Dyspnea Stated complaint: Altered Mental Status Time Seen by Provider: 03/06/25 22:03 History of Present Illness HPI narrative: Patient is a 69-year-old with past medical history significant for schizophrenia presents to the emergency department with altered mental status. At patient's baseline patient is interactive and talking and new patient started to become more altered and mute. Patient became tremulousness and bleeding rapidly leading to [facility] to call EMS. Further history unable to obtain secondary to patient's altered mental status. Related Data Home Medications ?Medication ?Instructions ?Recorded ?Confirmed haloperidol 10 mg tablet 10 mg PO TID 05/02/23 03/07/25 omeprazole 40 mg capsule,delayed 40 mg PO DAILY 05/02/23 03/07/25 release atorvastatin 10 mg tablet 10 mg PO HS 03/07/25 03/07/25 benztropine 1 mg tablet 1.5 mg PO BID 03/07/25 03/07/25 cholecalciferol (vitamin D3) 50 50 mcg PO DAILY 03/07/25 03/07/25 mcg (2,000 unit) tablet (Vitamin D3) ferrous sulfate 325 mg (65 mg 325 mg PO DAILY 03/07/25 03/07/25 iron) capsule,extended release folic acid 1 mg tablet 1 mg PO DAILY 03/07/25 03/07/25 lactulose 10 gram/15 mL oral syrup 10 g PO DAILY 03/07/25 03/07/25 Allergies Allergy/AdvReac Type Severity Reaction Status Date / Time No Known Allergies Allergy Verified 08/07/24 11:03 PFSH <Omayra Mcintosh MD - Last Filed: 03/06/25 22:57> [facility] Disclaimer: The information contained in this section may have been updated after the patient was seen, as this information can be updated by other users. Social History Smoking Status: Unknown if ever smoked alcohol intake: never current occupational status: unemployed Travel in the last 8 weeks?: None <Omayra Mcintosh MD - Last Filed: 03/06/25 22:57> ROS Obtained: Yes All systems reviewed & no additional complaints except as documented Physical Exam <Omayra Mcintosh MD - Last Filed: 03/06/25 22:57> General General appearance: in distress Comment: tremulousness, gasping for air, dry mucous membranes Head Head exam: atraumatic Eye Eye exam: Present PERRL ENT ENT exam: Present mucous membranes dry Chest Chest inspection: Present normal inspection and symmetric chest wall rise Respiratory Respiratory exam: Present normal lung sounds bilaterally and respiratory distress (accessory muscle use) Cardiovascular Cardiovascular exam: Present regular rate and normal rhythm Abdominal Exam Abdominal exam: Present soft; Absent distention or tenderness exam: Present normal inspection Neurological Exam Neurological exam: Present alert and other (mute, no verbal response, able to follow commands in all four extremities, no sensory deficit) Psychiatric Psychiatric exam: Present anxious Skin Skin exam: Present warm Medical Decision Making <Omayra Mcintosh MD - Last Filed: 03/06/25 22:57> Medical Records Screening: Per USPSTF and CDC recommendations, given the prevalence of disease in our region, it is our hospital?s policy to screen for HIV and viral Hepatitis for all patients aged 18 and over and those with ongoing risk factors. Ruddy Inquiry Pt receiving controlled substance: No Vital Signs: 03/06/25 21:57 03/06/25 22:00 03/06/25 22:24 Temperature 103.5 F H Temperature Source Rectal Pulse Rate 92 H 92 H Pulse Rate [Left] 95 H Respiratory Rate 34 H 15 Blood Pressure 126/59 L 114/56 L Blood Pressure [Right Arm] 126/59 L Blood Pressure Mean 72 66 Blood Pressure Mean [Right Arm] 81 Blood Pressure Source [Right Arm] Blood Pressure Position [Right Arm] 02 Sat by Pulse Oximetry 95 96 90 L Oxygen Delivery Method Nasal Cannula Oxygen Flow Rate (LPM) 2 03/06/25 22:30 03/06/25 22:45 03/06/25 23:00 Temperature 99.7 F H Temperature Source Pulse Rate 89 Pulse Rate [Left] Respiratory Rate Blood Pressure 127/62 114/53 L Blood Pressure [Right Arm] Blood Pressure Mean 71 73 Blood Pressure Mean [Right Arm] Blood Pressure Source [Right Arm] Blood Pressure Position [Right Arm] 02 Sat by Pulse Oximetry 98 Oxygen Delivery Method Nasal Cannula Oxygen Flow Rate (LPM) 2 03/06/25 23:30 03/07/25 00:00 03/07/25 00:01 Temperature 98.6 F 98.2 F 98.2 F Temperature Source Core Pulse Rate Pulse Rate [Left] Respiratory Rate Blood Pressure 137/75 130/75 130/75 Blood Pressure [Right Arm] Blood Pressure Mean 93 98 Blood Pressure Mean [Right Arm] Blood Pressure Source [Right Arm] Blood Pressure Position [Right Arm] 02 Sat by Pulse Oximetry Oxygen Delivery Method Oxygen Flow Rate (LPM) 03/07/25 00:02 03/07/25 00:27 03/07/25 00:28 Temperature 98.1 F 98.2 F Temperature Source Oral Core Pulse Rate 94 H Pulse Rate [Left] 88 Respiratory Rate 16 18 Blood Pressure 130/75 Blood Pressure [Right Arm] 119/66 Blood Pressure Mean Blood Pressure Mean [Right Arm] 83 Blood Pressure Source [Right Arm] Automatic Cuff Blood Pressure Position [Right Arm] Supine 02 Sat by Pulse Oximetry 99 Oxygen Delivery Method Nasal Cannula Nasal Cannula Nasal Cannula Oxygen Flow Rate (LPM) 2 2 2 Lab Data Lab Results 03/06/25 21:30: WBC 8.9, RBC 3.74 L, Hgb 11.9 L, Hct 35.1 L, MCV 93.9, MCH 31.8 H, MCHC 33.9, RDW 13.5, Plt Count 268, MPV 9.6, Neut % (Auto) 70.6, Lymph % (Auto) 15.2, [place] % (Auto) 12.4 H, Eos % (Auto) 0.4, Baso % (Auto) 0.6, Neut # (Auto) 6.3, Lymph # (Auto) 1.4, [place] # (Auto) 1.1 H, Eos # (Auto) 0.0, Baso # (Auto) 0.1, PT 12.6 H, INR 1.15 H, Sodium 140, Potassium 4.0, Chloride 109 H, Carbon Dioxide 15 L, Anion Gap 20.0 H, BUN 27 H, Creatinine 1.50 H, Estimated Creat Clear 52, Estimated GFR 46 L, Est GFR ( Amer) 56 L, Glucose 135 H, Calcium 9.6, Total Bilirubin 0.7, AST 35, ALT 43, Alkaline Phosphatase 143 H, Total Creatine Kinase 162, Troponin I < 0.01, Total Protein 8.2, Albumin 4.5, Globulin 3.7 H, Albumin/Globulin Ratio 1.2, Lipase 69, TSH 1.52, Free T4 0.89, Salicylates < 1.0 L, Acetaminophen < 10 L, Plasma/Serum Alcohol < 10 03/06/25 21:52: VBG pH 7.43 H, VBG pCO2 25.3 L, VBG pO2 70.0 H, VBG HCO3 16.4 L, VBG Total CO2 17.2 L, VBG O2 Saturation 93.1 H, VBG Base Excess -7.9 L, VBG Lactic Acid 4.0 H 03/06/25 21:57: Chlamy pneumoniae PCR Not detected, Adenovirus (PCR) Not detected, B. pertussis DNA (PCR) Not detected, Coronavirus OC43 (PCR) Not detected, Coronavirus HKU1 (PCR) Not detected, Coronavirus 229E (PCR) Not detected, SARS-CoV-2 (PCR) Detected A, Coronavirus NL63 (PCR) Not detected, Human Metapneumovir PCR Not detected, Influenza A (H1) PCR Not detected, Influ A (H1N1/09) PCR Not detected, Influenza A (H3) PCR Not detected, Influenza Type A (PCR) Not detected, Influenza Type B (PCR) Not detected, M. pneumoniae (PCR) Not detected, Parainfluenza 1 (PCR) Not detected, Parainfluenza 2 (PCR) Not detected, Parainfluenza 3 (PCR) Not detected, Parainfluenza 4 (PCR) Not detected, RSV (PCR) Not detected, Entero/Rhino (PCR) Not detected 03/06/25 22:40: Urine Color Yellow, Urine Appearance Clear, Urine pH 6.0, Ur Specific [place] 1.025, Urine Protein Trace, Urine Glucose (UA) Negative, Urine Ketones Trace, Urine Blood Negative, Urine Nitrate Negative, Urine Bilirubin Negative, Urine Urobilinogen 0.2, Ur Leukocyte Esterase Negative, Urine RBC None, Urine WBC Occasional, Ur Squamous Epith Cells None, Urine Bacteria Trace, Urine Opiates Screen Negative, Urine Methadone Screen Negative, Ur Barbituates Screen Negative, Ur Phencyclidine Scrn Negative, Ur Amphetamines Screen Negative, U Benzodiazepines Scrn Negative, Urine Cocaine Screen Negative, U Marijuana (THC) Screen Negative 03/06/25 21:30 03/06/25 21:30 Orders (Tests/Meds): ED MEDICATIONS Generic Name Dose Route Start Last Admin Trade Name Freq PRN Reason Stop Dose Admin Sodium Chloride 1,000 mls @ 100 mls/hr 03/07/25 00:00 Sod Chlor 0.9% 1000ml Bag IV 04/06/25 00:00 .Q10H ALBERTO Piperacillin Sod/Tazobactam 50 mls @ 100 mls/hr 03/07/25 04:00 Sod 3.375 gm/ Sodium Chloride IV 03/17/25 03:59 Q6H ALBERTO Miscellaneous 1 each 03/06/25 22:15 03/07/25 01:10 Vancomycin Consult Request NOTAPPLIC 04/05/25 22:14 Not Given CONSULT PHARMACY [facility] Morphine Sulfate 2 mg 03/07/25 00:59 Morphine 2mg/Ml Syringe IV 04/06/25 00:58 Q4HP PRN Moderate to Severe Pain (4-10) Discontinued Medications Generic Name Dose Route Start Last Admin Trade Name Freq PRN Reason Stop Dose Admin Acetaminophen 1,000 mg 03/06/25 21:34 03/06/25 21:43 Acetaminophen 1,000mg/100ml Vial IV 03/06/25 21:35 1,000 mg ONCE ONE Administration Lactated Ringer's 2,400 mls @ 1,200 mls/hr 03/06/25 21:29 03/06/25 23:57 Lactated Ringer's 1000 Ml Bag 30 ml/kg infuse over 2 hr (2400 ml) 03/06/25 23:28 Infused IV Infusion .Q2H ONE Protocol Piperacillin Sod/Tazobactam 100 mls @ 200 mls/hr 03/06/25 22:15 03/07/25 00:18 Sod 4.5 gm/ Sodium Chloride IV 03/06/25 22:44 Infused ONCE ONE Infusion Vancomycin/PEG/NADA/Lysine/Water 1.5 gm in 300 mls @ 150 mls/hr 03/06/25 22:15 03/06/25 23:56 Vancomycin 1.5gm/300ml (Peg) Premix IV 03/07/25 00:14 150 mls/hr ONCE ONE Administration Iopamidol 150 ml 03/06/25 22:17 03/06/25 22:19 Iopamidol-370 (76%);100ml Bottle IV 03/06/25 22:18 150 ml ONCE ONE Administration Ketorolac Tromethamine 15 mg 03/06/25 23:04 03/06/25 23:56 Ketorolac 15mg/Ml Vial IV 03/06/25 23:05 15 mg ONCE ONE Administration Midazolam HCl 2 mg 03/06/25 21:38 03/06/25 21:58 Midazolam 2mg/2ml Vial IV 03/06/25 21:39 2 mg ONCE ONE Administration Sodium Chloride 10 ml 03/06/25 22:17 03/06/25 22:19 Sodium Chloride 0.9% 10ml Syr (Rad Only) IV 03/06/25 22:18 10 ml ONCE ONE Administration Sodium Chloride 100 ml 03/06/25 22:17 03/06/25 22:19 0.9 % Sodium Chloride 50 Ml Vial IV 03/06/25 22:18 100 ml ONCE ONE Administration ORDERS Category Date Time Status CT abdomen pelvis w con Stat Cat Scan 03/06/25 21:[address] angio head Stat Cat Scan 03/06/25 22:[address] angio neck Stat Cat Scan 03/06/25 22:[address] head/brain wo con Stat Cat Scan 03/06/25 21:31 Completed CTA Chest [CT angio chest PE protocol] Stat Cat Scan 03/06/25 21:31 Completed Acetaminophen Stat Lab 03/06/25 21:30 Completed Complete Blood Count Auto Diff AMLAB Lab 03/07/25 06:00 Ordered Complete Blood Count Auto Diff Stat Lab 03/06/25 21:30 Completed Comprehensive Metabolic Panel AMLAB Lab 03/07/25 06:00 Ordered Comprehensive Metabolic Panel Stat Lab 03/06/25 21:30 Completed Creatine Kinase Stat Lab 03/06/25 21:30 Completed Drug Screen,Urine Stat Lab 03/06/25 22:40 Completed Ethyl Alcohol Stat Lab 03/06/25 21:30 Completed Free T4 (Free Thyroxine) Stat Lab 03/06/25 21:30 Completed Full Resp Panel w/COVID ([facility]) Routine Lab 03/06/25 21:57 Completed Lipase Stat Lab 03/06/25 21:30 Completed POC Glucose,Bedside Stat Lab 03/06/25 21:31 Ordered Prothrombin Time INR Stat Lab 03/06/25 21:30 Completed Salicylate Stat Lab 03/06/25 21:30 Completed Thyroid Stimulating Hormone Stat Lab 03/06/25 21:30 Completed Troponin I Q3H Lab 03/07/25 00:45 Ordered Troponin I Q3H Lab 03/07/25 06:00 Ordered Troponin I Stat Lab 03/06/25 21:30 Completed Urinalysis and Microscopic Stat Lab 03/06/25 22:40 Completed Blood Culture Stat Micro 03/06/25 21:48 Received Venous Blood Gas Stat RT 03/06/25 21:52 Completed Medical Decision Narrative: In summary, this 69-year-old male presents to the emergency department today with altered mental status. On initial evaluation patient is febrile hemodynamically stable saturating appropriately on room air with accessory muscle use. Differential diagnosis includes but is not limited to sepsis, intracranial hemorrhage or stroke, neuroleptic malignant syndrome serotonin syndrome thyrotoxicosis ACS PE. Based on these concerns, I ordered CT head CT PE CT abdomen pelvis with IV contrast, CK lipase TSH T4 CBC CMP troponin EKG. Patient stroke alerted once we spoke to [place] to learn pt's baseline mental status. Stroke alerted 2/2 mutism. LKW per home noon 03/06. outside TNK window. ECG personally interpreted demonstrates sinus tachycardia no ST elevation ST depression or T wave inversions concerning for ischemia Patient received sepsis bolus Versed IV Tylenol for treatment. Labs personally reviewed demonstrate elevated creatinine, decreased bicarb, respiratory alkalosis, elevated anion gap, UA without evidence of infection CT imaging personally interpreted demonstrate no intracranial hemorrhage or large vessel occlusion. At 11 PM transfer care given to oncoming physician to follow-up CT chest abdomen pelvis for evaluation of septic sources. If no source of sepsis higher suspicion for neuroleptic malignant syndrome secondary to patient's Haldol. Patient has improvement of hyperventilation after Versed. <Dario Hargrove MD - Last Filed: 03/07/25 01:55> Vital Signs: 03/06/25 21:57 03/06/25 22:00 03/06/25 22:24 Temperature 103.5 F H Temperature Source Rectal Pulse Rate 92 H 92 H Pulse Rate [Left] 95 H Respiratory Rate 34 H 15 Blood Pressure 126/59 L 114/56 L Blood Pressure [Right Arm] 126/59 L Blood Pressure Mean 72 66 Blood Pressure Mean [Right Arm] 81 Blood Pressure Source [Right Arm] Blood Pressure Position [Right Arm] 02 Sat by Pulse Oximetry 95 96 90 L Oxygen Delivery Method Nasal Cannula Oxygen Flow Rate (LPM) 2 03/06/25 22:30 03/06/25 22:45 03/06/25 23:00 Temperature 99.7 F H Temperature Source Pulse Rate 89 Pulse Rate [Left] Respiratory Rate Blood Pressure 127/62 114/53 L Blood Pressure [Right Arm] Blood Pressure Mean 71 73 Blood Pressure Mean [Right Arm] Blood Pressure Source [Right Arm] Blood Pressure Position [Right Arm] 02 Sat by Pulse Oximetry 98 Oxygen Delivery Method Nasal Cannula Oxygen Flow Rate (LPM) 2 03/06/25 23:30 03/07/25 00:00 03/07/25 00:01 Temperature 98.6 F 98.2 F 98.2 F Temperature Source Core Pulse Rate Pulse Rate [Left] Respiratory Rate Blood Pressure 137/75 130/75 130/75 Blood Pressure [Right Arm] Blood Pressure Mean 93 98 Blood Pressure Mean [Right Arm] Blood Pressure Source [Right Arm] Blood Pressure Position [Right Arm] 02 Sat by Pulse Oximetry Oxygen Delivery Method Oxygen Flow Rate (LPM) 03/07/25 00:02 03/07/25 00:27 03/07/25 00:28 Temperature 98.1 F 98.2 F Temperature Source Oral Core Pulse Rate 94 H Pulse Rate [Left] 88 Respiratory Rate 16 18 Blood Pressure 130/75 Blood Pressure [Right Arm] 119/66 Blood Pressure Mean Blood Pressure Mean [Right Arm] 83 Blood Pressure Source [Right Arm] Automatic Cuff Blood Pressure Position [Right Arm] Supine 02 Sat by Pulse Oximetry 99 Oxygen Delivery Method Nasal Cannula Nasal Cannula Nasal Cannula Oxygen Flow Rate (LPM) 2 2 2 Lab Data Lab Results 03/06/25 21:30: WBC 8.9, RBC 3.74 L, Hgb 11.9 L, Hct 35.1 L, MCV 93.9, MCH 31.8 H, MCHC 33.9, RDW 13.5, Plt Count 268, MPV 9.6, Neut % (Auto) 70.6, Lymph % (Auto) 15.2, [place] % (Auto) 12.4 H, Eos % (Auto) 0.4, Baso % (Auto) 0.6, Neut # (Auto) 6.3, Lymph # (Auto) 1.4, [place] # (Auto) 1.1 H, Eos # (Auto) 0.0, Baso # (Auto) 0.1, PT 12.6 H, INR 1.15 H, Sodium 140, Potassium 4.0, Chloride 109 H, Carbon Dioxide 15 L, Anion Gap 20.0 H, BUN 27 H, Creatinine 1.50 H, Estimated Creat Clear 52, Estimated GFR 46 L, Est GFR ( Amer) 56 L, Glucose 135 H, Calcium 9.6, Total Bilirubin 0.7, AST 35, ALT 43, Alkaline Phosphatase 143 H, Total Creatine Kinase 162, Troponin I < 0.01, Total Protein 8.2, Albumin 4.5, Globulin 3.7 H, Albumin/Globulin Ratio 1.2, Lipase 69, TSH 1.52, Free T4 0.89, Salicylates < 1.0 L, Acetaminophen < 10 L, Plasma/Serum Alcohol < 10 03/06/25 21:52: VBG pH 7.43 H, VBG pCO2 25.3 L, VBG pO2 70.0 H, VBG HCO3 16.4 L, VBG Total CO2 17.2 L, VBG O2 Saturation 93.1 H, VBG Base Excess -7.9 L, VBG Lactic Acid 4.0 H 03/06/25 21:57: Chlamy pneumoniae PCR Not detected, Adenovirus (PCR) Not detected, B. pertussis DNA (PCR) Not detected, Coronavirus OC43 (PCR) Not detected, Coronavirus HKU1 (PCR) Not detected, Coronavirus 229E (PCR) Not detected, SARS-CoV-2 (PCR) Detected A, Coronavirus NL63 (PCR) Not detected, Human Metapneumovir PCR Not detected, Influenza A (H1) PCR Not detected, Influ A (H1N1/09) PCR Not detected, Influenza A (H3) PCR Not detected, Influenza Type A (PCR) Not detected, Influenza Type B (PCR) Not detected, M. pneumoniae (PCR) Not detected, Parainfluenza 1 (PCR) Not detected, Parainfluenza 2 (PCR) Not detected, Parainfluenza 3 (PCR) Not detected, Parainfluenza 4 (PCR) Not detected, RSV (PCR) Not detected, Entero/Rhino (PCR) Not detected 03/06/25 22:40: Urine Color Yellow, Urine Appearance Clear, Urine pH 6.0, Ur Specific [place] 1.025, Urine Protein Trace, Urine Glucose (UA) Negative, Urine Ketones Trace, Urine Blood Negative, Urine Nitrate Negative, Urine Bilirubin Negative, Urine Urobilinogen 0.2, Ur Leukocyte Esterase Negative, Urine RBC None, Urine WBC Occasional, Ur Squamous Epith Cells None, Urine Bacteria Trace, Urine Opiates Screen Negative, Urine Methadone Screen Negative, Ur Barbituates Screen Negative, Ur Phencyclidine Scrn Negative, Ur Amphetamines Screen Negative, U Benzodiazepines Scrn Negative, Urine Cocaine Screen Negative, U Marijuana (THC) Screen Negative Orders (Tests/Meds): ED MEDICATIONS Generic Name Dose Route Start Last Admin Trade Name Freq PRN Reason Stop Dose Admin Sodium Chloride 1,000 mls @ 100 mls/hr 03/07/25 00:00 Sod Chlor 0.9% 1000ml Bag IV 04/06/25 00:00 .Q10H ALBERTO Piperacillin Sod/Tazobactam 50 mls @ 100 mls/hr 03/07/25 04:00 Sod 3.375 gm/ Sodium Chloride IV 03/17/25 03:59 Q6H ALBERTO Miscellaneous 1 each 03/06/25 22:15 03/07/25 01:10 Vancomycin Consult Request NOTAPPLIC 04/05/25 22:14 Not Given CONSULT PHARMACY [facility] Morphine Sulfate 2 mg 03/07/25 00:59 Morphine 2mg/Ml Syringe IV 04/06/25 00:58 Q4HP PRN Moderate to Severe Pain (4-10) Discontinued Medications Generic Name Dose Route Start Last Admin Trade Name Freq PRN Reason Stop Dose Admin Acetaminophen 1,000 mg 03/06/25 21:34 03/06/25 21:43 Acetaminophen 1,000mg/100ml Vial IV 03/06/25 21:35 1,000 mg ONCE ONE Administration Lactated Ringer's 2,400 mls @ 1,200 mls/hr 03/06/25 21:29 03/06/25 23:57 Lactated Ringer's 1000 Ml Bag 30 ml/kg infuse over 2 hr (2400 ml) 03/06/25 23:28 Infused IV Infusion .Q2H ONE Protocol Piperacillin Sod/Tazobactam 100 mls @ 200 mls/hr 03/06/25 22:15 03/07/25 00:18 Sod 4.5 gm/ Sodium Chloride IV 03/06/25 22:44 Infused ONCE ONE Infusion Vancomycin/PEG/NADA/Lysine/Water 1.5 gm in 300 mls @ 150 mls/hr 03/06/25 22:15 03/06/25 23:56 Vancomycin 1.5gm/300ml (Peg) Premix IV 03/07/25 00:14 150 mls/hr ONCE ONE Administration Iopamidol 150 ml 03/06/25 22:17 03/06/25 22:19 Iopamidol-370 (76%);100ml Bottle IV 03/06/25 22:18 150 ml ONCE ONE Administration Ketorolac Tromethamine 15 mg 03/06/25 23:04 03/06/25 23:56 Ketorolac 15mg/Ml Vial IV 03/06/25 23:05 15 mg ONCE ONE Administration Midazolam HCl 2 mg 03/06/25 21:38 03/06/25 21:58 Midazolam 2mg/2ml Vial IV 03/06/25 21:39 2 mg ONCE ONE Administration Sodium Chloride 10 ml 03/06/25 22:17 03/06/25 22:19 Sodium Chloride 0.9% 10ml Syr (Rad Only) IV 03/06/25 22:18 10 ml ONCE ONE Administration Sodium Chloride 100 ml 03/06/25 22:17 03/06/25 22:19 0.9 % Sodium Chloride 50 Ml Vial IV 03/06/25 22:18 100 ml ONCE ONE Administration ORDERS Category Date Time Status CT abdomen pelvis w con Stat Cat Scan 03/06/25 21:[address] angio head Stat Cat Scan 03/06/25 22:[address] angio neck Stat Cat Scan 03/06/25 22:[address] head/brain wo con Stat Cat Scan 03/06/25 21:31 Completed CTA Chest [CT angio chest PE protocol] Stat Cat Scan 03/06/25 21:31 Completed Acetaminophen Stat Lab 03/06/25 21:30 Completed Complete Blood Count Auto Diff AMLAB Lab 03/07/25 06:00 Ordered Complete Blood Count Auto Diff Stat Lab 03/06/25 21:30 Completed Comprehensive Metabolic Panel AMLAB Lab 03/07/25 06:00 Ordered Comprehensive Metabolic Panel Stat Lab 03/06/25 21:30 Completed Creatine Kinase Stat Lab 03/06/25 21:30 Completed Drug Screen,Urine Stat Lab 03/06/25 22:40 Completed Ethyl Alcohol Stat Lab 03/06/25 21:30 Completed Free T4 (Free Thyroxine) Stat Lab 03/06/25 21:30 Completed Full Resp Panel w/COVID (H) Routine Lab 03/06/25 21:57 Completed Lipase Stat Lab 03/06/25 21:30 Completed POC Glucose,Bedside Stat Lab 03/06/25 21:31 Ordered Prothrombin Time INR Stat Lab 03/06/25 21:30 Completed Salicylate Stat Lab 03/06/25 21:30 Completed Thyroid Stimulating Hormone Stat Lab 03/06/25 21:30 Completed Troponin I Q3H Lab 03/07/25 00:45 Ordered Troponin I Q3H Lab 03/07/25 06:00 Ordered Troponin I Stat Lab 03/06/25 21:30 Completed Urinalysis and Microscopic Stat Lab 03/06/25 22:40 Completed Blood Culture Stat Micro 03/06/25 21:48 Received Venous Blood Gas Stat RT 03/06/25 21:52 Completed Tissue Perfus/Sepsis Re-Eval Sepsis Re-Evaluation Performed: Yes Date Performed: 03/06/25 Time Performed: 23:00 Medical Decision Narrative: In summary, this 69-year-old male presents to the emergency department today with altered mental status. On initial evaluation patient is febrile hemodynamically stable saturating appropriately on room air with accessory muscle use. Differential diagnosis includes but is not limited to sepsis, intracranial hemorrhage or stroke, neuroleptic malignant syndrome serotonin syndrome thyrotoxicosis ACS PE. Based on these concerns, I ordered CT head CT PE CT abdomen pelvis with IV contrast, CK lipase TSH T4 CBC CMP troponin EKG. Patient stroke alerted once we spoke to [place] to learn pt's baseline mental status. Stroke alerted 2/2 mutism. LKW per home noon 03/06. outside TNK window. ECG personally interpreted demonstrates sinus tachycardia no ST elevation ST depression or T wave inversions concerning for ischemia Patient received sepsis bolus Versed IV Tylenol for treatment. Labs personally reviewed demonstrate elevated creatinine, decreased bicarb, respiratory alkalosis, elevated anion gap, UA without evidence of infection CT imaging personally interpreted demonstrate no intracranial hemorrhage or large vessel occlusion. At 11 PM transfer care given to oncoming physician to follow-up CT chest abdomen pelvis for evaluation of septic sources. If no source of sepsis higher suspicion for neuroleptic malignant syndrome secondary to patient's Haldol. Patient has improvement of hyperventilation after Versed. Delvin GRIFFIN: I assumed care of the patient at the time of handoff from the prior provider. On reassessment patient is sleeping but arousable, vital signs have normalized. CT imaging is independently turbid by me and significant for acute appendicitis without perforation. His viral swab also came back COVID-positive. Given this, sepsis secondary to appendicitis and COVID is the most likely source for patient's altered mental status. I called and spoke with the general surgeon who recommends IV antibiotics and admission for stabilization prior to operative intervention. I spoke with the hospitalist on-call for admission. Critical Care <Omayra Mcintosh MD - Last Filed: 03/06/25 22:57> Critical Care Time Critical Care Time: No
[2025-03-06] MEDS: LACTATED RINGERS 1000ML 2,400 ML 1200 ML IV (21:43)
[2025-03-06] MEDS: ACETAMINOPHEN 1,000MG/100ML VIAL 1000 MG IV (21:43)
[2025-03-06 21:56] LABS: VBG HCO3 16.4 mmol/L (23-30); VBG PCO2 25.3 mmol/L (35-51); VBG PH 7.43 mmol/L (7.31-7.41); VBG PO2 70.0 mmol/L (28-40)
[2025-03-06 21:57] VITALS: BP 126/59; PULSE 95; RESP 34; TEMP 39.7; O2SAT 95; BMI 25.1
--- OUTSIDE RECORDS SUMMARY | 2025-03-06 21:57 | XMS_ITS | Clinical Summary ---
Author Organization [facility] Address [address] 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 No 05/07/2023 Utilities Answer Date [...] Last Done Comments [facility]-Bone Density Scan 1953 [facility]-Medicare Annual Wellness (AWV) 1953 [facility]-/Child/Adol SDOH Screenings 1955 [facility]- SDOH Screenings 10/23/1971 [facility]-Adult SDOH Screenings 10/23/1971 [facility]-Pneumococcal Vaccine: 50 + Years (1 of 2 - PCV) 1972 CT Colonography 1998 Colonoscopy 1998 FIT-DNA 1998 FIT 1998 FOBT 1998 Sigmoidoscopy 1998 [facility]-Colorectal Cancer Screening 1998 [facility]-Zoster Vaccines (1 of 2) 10/23/2003 [facility]-Depression Screening 05/19/2024 05/20/2023 TUD-ECPHN-14 Vaccine (1 - season) 2024 [facility]-Influenza Vaccine (#1) 11/16/202401/22, 01/26/2022 [facility]-DTaP,Tdap,and Td Vaccine s (2 - Td or Tdap) 07/27/2025 07/28/2015 [facility]-RSV Vaccine: 60+ Years o r (1 - 1-dose 75+ series) 2028 [facility]-Hepatitis C Screening Completed 05/04/2023 HPV Vaccines (No Doses Required) Completed [facility]-HIB Vaccines Aged Out No longer e [...] this topic Medical Devices Implanted Type Area Crew Foreman Device Identifier Shelf Expiration Date Model / Serial / Lot Nail Long Troch Kit Ti [id number] - [id number] Implanted:Qty: 1 on 05/05/2023 by Sebastian Hall MD at [facility] Nail Left: Femur [employer] [facility][id number] 11/16/2027 [id number] / / [id number] Screw Lag Gamma3 10.5mm Ti 105mm - [id number] Implanted:Qty: 1 on 05/05/2023 by Sebastian Hall MD at [facility] Screw Left: Femur [employer] ([employer])-[id number] 11/16/2027 [id number] / / [id number] Screw 5.0mm Lock Full Thrd 32.5mm - [id number] Implanted:Qty: 1 on 05/05/2023 by Sebastian Hall MD at [facility] Screw Left: Femur [employer] ([employer])-[id number] 11/16/2027 [id number] / / [id number] Procedures Procedure Name Priority Date/Time Associated Diagnosis [...] MD LAB BLOOD ORDERABLES Final Re sult Performing Organization Address City/State/[facility] Co de Phone Number HEALTHCARE LAB [address] [place] [address] from Last 3 Months or Most Recently Relevant to Health Maintenance Insurance [facility]IC[facility] Care Teams Skin Diving Teacher Relationship Specialty Start Date End Date Avelino Maynard APRN [address] [place] [address] PCP - General 05/04/23
[2025-03-06 21:58] LABS: Lactate Venous 4.0 mmol/L (0.4-2.0)
[2025-03-06] MEDS: MIDAZOLAM 2MG/2ML VIAL 2 MG IV (21:58)
[2025-03-06 21:59] LABS: Hematocrit 35.1 % (42.0-52.0); Hemoglobin 11.9 g/dL (14.1-18.0); Immature Granulocytes % 0.8 %; Mean Corpuscular HGB Conc 33.9 g/dL (31.8-35.4); Mean Corpuscular Hemoglobin 31.8 pg (27.0-31.2); Mean Corpuscular Volume 93.9 fl (80-94); Nucleated Red Blood Cells % 0 %; Platelet Count 268 K/mm3 (142-424); Red Blood Count 3.74 M/mm3 (4.60-6.20); Red Cell Distribution Width-SD 46.2 fL; White Blood Count 8.9 K/mm3 (4.8-10.8)
[2025-03-06 22:00] VITALS: BP 126/59; PULSE 92; RESP 15; O2SAT 96
--- NOTE | 2025-03-06 22:04 | CT_ITS ---
PROCEDURE INFORMATION: Exam: CTA Head With Contrast, Arteriography Exam date and time: 03/06/2025 10:14 PM Age: 69 years old Clinical indication: Stroke-like symptoms; Altered mental status/memory loss; Additional info: Possible stroke TECHNIQUE: Imaging protocol: Computed tomographic angiography of the head with contrast. Exam focused on the arteries. 3D rendering (Not supervised by radiologist): MIP and/or 3D reconstructed images were created by the technologist. Radiation optimization: All CT scans at this facility use at least one of these dose optimization techniques: automated exposure control; mA and/or kV adjustment per patient size (includes targeted exams where dose is matched to clinical indication); or iterative reconstruction. Contrast material: ISO; Contrast volume: 80 ml; Contrast route: INTRAVENOUS (IV); COMPARISON: CT HEAD/BRAIN WO CON 03/06/2025 10:12 PM FINDINGS: ANTERIOR CIRCULATION: Right internal carotid artery: Intracranial segment is patent with no significant stenosis. No aneurysm. Right middle cerebral artery: No occlusion or significant stenosis. No aneurysm. Right anterior cerebral artery: No occlusion or significant stenosis. No aneurysm. Left internal carotid artery: Intracranial segment is patent with no significant stenosis. No aneurysm. Left middle cerebral artery: No occlusion or significant stenosis. No aneurysm. Left anterior cerebral artery: No occlusion or significant stenosis. No aneurysm. POSTERIOR CIRCULATION: Right vertebral artery: No occlusion or significant stenosis. No aneurysm. Left vertebral artery: No occlusion or significant stenosis. No aneurysm. Basilar artery: No occlusion or significant stenosis. No aneurysm. Right posterior cerebral artery: No occlusion or significant stenosis. No aneurysm. Left posterior cerebral artery: No occlusion or significant stenosis. No aneurysm. Brain: Intracranial vascular calcifications. Cerebral ventricles: No ventriculomegaly. Bones/joints: Unremarkable. No acute fracture. Soft tissues: Unremarkable. Other findings: No evidence for large vessel occlusion. IMPRESSION: 1. No evidence for large vessel occlusion. 2. Intracranial vascular calcifications.
--- NOTE | 2025-03-06 22:04 | CT_ITS ---
PROCEDURE INFORMATION: Exam: CTA Neck With Contrast Exam date and time: 03/06/2025 10:14 PM Age: 69 years old Clinical indication: Stroke-like symptoms; Altered mental status/memory loss; Additional info: Possible stroke TECHNIQUE: Imaging protocol: Computed tomographic angiography of the neck with contrast. Exam focused on the cervical segments of the vasculature. 3D rendering (Not supervised by radiologist): MIP and/or 3D reconstructed images were created by the technologist. Radiation optimization: All CT scans at this facility use at least one of these dose optimization techniques: automated exposure control; mA and/or kV adjustment per patient size (includes targeted exams where dose is matched to clinical indication); or iterative reconstruction. Contrast material: ISO; Contrast volume: 80 ml; Contrast route: INTRAVENOUS (IV); COMPARISON: CT CERVICAL SPINE WO CON 02/01/2025 12:31 PM FINDINGS: Right common carotid artery: No stenosis. No dissection or occlusion. Right internal carotid artery: No stenosis of the extracranial segment. No dissection or occlusion. Right external carotid artery: No occlusion or stenosis of the origin. Left common carotid artery: No stenosis. No dissection or occlusion. Left internal carotid artery: No stenosis of the extracranial segment. No dissection or occlusion. Left external carotid artery: No occlusion or stenosis of the origin. Right vertebral artery: No stenosis. No dissection or occlusion. Left vertebral artery: No stenosis. No dissection or occlusion. Lymph nodes: Moderate bilateral internal carotid chain adenopathy coronal image 5/60. Soft tissues: Normal. No significant soft tissue swelling. Bones/joints: Multilevel degenerative change in the cervical spine with disc space narrowing predominantly at C4-C5, C5-C6 and C6-C7 levels with disc space narrowing small disc osteophyte complexes Lungs: Mild centrilobular emphysema. Other findings: Plaque at the carotid bifurcations without hemodynamically significant stenosis. IMPRESSION: 1. Plaque at the carotid bifurcations without hemodynamically significant stenosis. 2. Moderate bilateral internal carotid chain adenopathy coronal image 5/60. 3. Multilevel degenerative change in the cervical spine with disc space narrowing predominantly at C4-C5, C5-C6 and C6-C7 levels with disc space narrowing small disc osteophyte complexes 4. Mild centrilobular emphysema. REFERENCES: NASCET CRITERIA. The degree of stenosis in the cervical segment of the internal carotid artery is based on NASCET criteria. Normal is no stenosis. Mild is less than 50% stenosis. Moderate is 50-69% stenosis. Severe is 70% to 99% stenosis. Total occlusion is no detectable patent lumen.
[2025-03-06 22:05] LABS: Adenovirus,PCR Not Detected (NotDetected); Chlamydophila Pneumoniae, PCR Not Detected (NotDetected); Coronovirus HKU1,PCR Not Detected (NotDetected); Influenza A, PCR Not Detected (NotDetected); Influenza AH1, 2009 Not Detected (NotDetected); Influenza AH1, PCR Not Detected (NotDetected); Influenza AH3,PCR Not Detected (NotDetected); Influenza B, PCR Not Detected (NotDetected); Mycoplasma Pneumoniae, PCR Not Detected (NotDetected); Parainfluenza 1, PCR Not Detected (NotDetected); Parainfluenza 2, PCR Not Detected (NotDetected); Parainfluenza 3, PCR Not Detected (NotDetected); Parainfluenza 4, PCR Not Detected (NotDetected)
[2025-03-06 22:10] LABS: Albumin Level 4.5 g/dl (3.5-5.0); Chloride 109 mmol/L (98-107); Potassium 4.0 mmoL/L (3.5-5.1); Sodium 140 mmol/L (136-145)
[2025-03-06 22:12] LABS: Lipase 69 U/L (23-300)
[2025-03-06 22:13] LABS: Alanine Aminotransferase 43 U/L (12-78); Albumin/Globulin Ratio 1.2 (1.1-1.8); Alkaline Phosphatase 143 U/L (38-126); Anion Gap 20.0 mEq/L (5-15); Aspartate Amino Transferase 35 U/L (17-59); Bilirubin,Total 0.7 mg/dl (0.2-1.3); Blood Urea Nitrogen 27 mg/dl (9-20); Calcium 9.6 mg/dl (8.4-10.2); Carbon Dioxide 15 mmol/L (22.0-30.0); Creatine Kinase 162 U/L (55-170); Creatinine Clearance Estimated 52 mL/min (50-200); Creatinine,Serum 1.50 mg/dl (0.66-1.25); Estimated Glomerular Filt Rate 46 ml/min (>60); GFR (African American) 56 ML/MIN (>60); Globulin 3.7 g/dL (1.3-3.2); Glucose 135 mg/dl (74-100); Total Protein,Serum 8.2 g/dl (6.3-8.2)
[2025-03-06 22:16] LABS: Acetaminophen < 10 ug/ml (10-30); Salicylate < 1.0 mg/dL (2.0-20.0)
[2025-03-06] MEDS: SODIUM CHLORIDE 0.9% 10ML SYR (RAD ONLY) 10 ML IV (22:19)
[2025-03-06] MEDS: 0.9 % SODIUM CHLORIDE 50 ML VIAL 100 ML IV (22:19)
[2025-03-06] MEDS: IOPAMIDOL-370 (76%);100ML BOTTLE 150 ML IV (22:19)
[2025-03-06 22:21] LABS: INR 1.15 (0.9-1.1); Prothrombin Time 12.6 seconds (10.1-12.5)
[2025-03-06 22:24] VITALS: BP 114/56; PULSE 92; O2SAT 90
[2025-03-06 22:24] LABS: Troponin I < 0.01 ng/ml (0.00-0.034)
--- NOTE | 2025-03-06 22:25 | PC.NURSE ---
[facility] notified of Stroke alert at 2205 Manual BP at 115/52 FSBS 137
[2025-03-06 22:30] VITALS: BP 127/62; PULSE 89; O2SAT 98
[2025-03-06 22:37] LABS: Free T4 (Free Thyroxine) 0.89 ng/dl (0.78-2.19)
[2025-03-06 22:43] LABS: Thyroid Stimulating Hormone 1.52 uIU/mL (0.465-4.68)
[2025-03-06 22:45] LABS: Microscopic, Urine URINE MICROSCOPIC (MICROSCOPIC)
[2025-03-06 22:49] LABS: Bilirubin,Urine Negative (Negative); Color,Urine YELLOW (Yellow); Glucose,Urine (UA) Negative (Negative); Ketones,Urine TRACE (Negative); Leukocyte Esterase,Urine Negative (Negative); PH,Urine 6.0 (5.0-8.5); Protein,Urine TRACE (Negative); Specific Gravity, Urine 1.025 (1.005-1.030); Urobilinogen,Urine 0.2 EU/dl (0.2)
[2025-03-06] MEDS: PIPERACILLIN/TAZO 4.5 GM in 0.9 % SODIUM CHLORIDE 100 ML IV (22:49)
--- NOTE | 2025-03-06 22:57 | PC.NURSE ---
Staff at [facility] called for update on resident
[2025-03-06 22:58] LABS: Amphetamine/Metha Screen,Urine Negative ng/ml (<1000); Bacteria,Urine Trace /lpf; WBC,Urine Occasional #/hpf (0-3)
[2025-03-06 22:59] LABS: Barbiturates Screen,Urine Negative ng/ml (<200); Benzodiazepines Screen,Urine Negative ng/ml (<200)
[2025-03-06 23:00] VITALS: BP 114/53; TEMP 37.6
[2025-03-06 23:01] LABS: Methadone Screen,Urine Negative ng/ml (<300)
[2025-03-06 23:02] LABS: Opiate Screen,Urine Negative ng/ml (<300)
[2025-03-06 23:03] LABS: Phencyclidine Screen,Urine Negative ng/ml (<25)
[2025-03-06 23:30] VITALS: BP 137/75; TEMP 37
[2025-03-06] MEDS: KETOROLAC 15MG/ML VIAL 15 MG IV (23:56)
[2025-03-06] MEDS: VANCOMYCIN/WATER FOR INJ (PEG) 1.5 GM/300 ML PIGGYBACK IV (23:56)
[2025-03-07] VITALS (27 sets, daily range): BP systolic 100–140; BP diastolic 48–90; PULSE 57–94; RESP 14–18; TEMP 36.4–38; O2SAT 90–100; BMI 24.7
[2025-03-07 00:14] LABS: Coronavirus 19, PCR Detected (NotDetected)
--- NOTE | 2025-03-07 00:27 | PC.NURSE ---
Report called to VIVI Adams on medrge
--- NOTE | 2025-03-07 00:39 | P.HP_ITS ---
<Statement entered by Rene Wade MD - 03/07/25 09:21> Rounded on patient after nurse practitioner. Personally examined and interviewed patient. Agree with exam findings and care plan as documented. History of Present Illness *Admission Date: 03/07/25 *Reason for visit:: AMS *History of present illness: Marshall Schroeder is a 69-year-old with a past medical significant for schizophrenia, GERD and anxiety. Presents to [facility] emergency department from his nursing facility [facility] per EMS. History obtained per chart review and staff, as patient is a poor historian due to altered mental status. Patient reported to be altered throughout the day, becoming tremulous and ultimately nonverbal. At baseline noted to be alert and talkative. Significant ED workup findings include, CT abdomen and pelvis positive for acute appendicitis. Viral panel positive for COVID. Febrile, temp 103.5 ?F. Hospital medicine consulted for admission. ED workup included laboratory and imaging studies. WBC within normal limit 8.9, PT 12.6, INR 1.15, anion gap 20, creatinine 1.5, GFR 46, BUN 27, alkaline phos 14. VBG pH 7.43, HCO3 16.4, total CO2 17.2, lactic acid 4.0. respiratory pathogen panel (+) COVID. Imaging study included; abdomen and pelvis CT personally reviewed, revealing acute appendicitis without perforation. Chest CT A, head CT, personally reviewed and is without acute finding. Neck CTA I personally reviewed showing plaque at the carotid bifurcations without hemodynamically significant stenosis. Moderate bilateral internal carotid chain adenopathy coronal. Multilevel degenerative change in the cervical spine with disc space narrowing predominantly at C4-C5, C5-C6 and C6-C7 levels with disc space narrowing small disc osteophyte complexes. Mild centrilobular emphysema. Assessment of patient at bedside, he is without acute distress- somnolent. Arouses with mild stimuli. Patient reportedly became very agitated/combative while in the emergency department, received Versed 2mg. Vitals stable, on 2 L nasal cannula. [facility] Disclaimer: The information contained in this section may have been updated after the patient was seen, as this information can be updated by other users. Social History Smoking Status: Unknown if ever smoked alcohol intake: never current occupational status: unemployed Travel in the last 8 weeks?: None Review of Systems Review of Systems Review of systems:: unable to obtain Constitutional Constitutional: Reports as per HPI Eyes Eyes: Reports as per HPI ENT Ears, Nose, Mouth, and Throat: Reports as per HPI *Cardiovascular Cardiovascular: Reports as per HPI *Respiratory Respiratory: Reports as per HPI *Gastrointestinal Gastrointestinal: Reports as per HPI *Genitourinary Genitourinary: Reports as per HPI *Musculoskeletal Musculoskeletal: Reports as per HPI Integumentary/Breasts Skin/Breast: Reports as per HPI *Neurologic Neurologic: Reports as per HPI Psychiatric Psychiatric: Reports as per HPI Endocrine Endocrine: Reports as per HPI Hematologic/Lymphatic Hematologic/Lymphatic: Reports as per HPI Allergic/Immunologic Allergic/Immunologic: Reports as per HPI Meds Home Medications and Allergies Home Medications ?Medication ?Instructions ?Recorded ?Confirmed ?Type haloperidol 10 mg tablet 10 mg PO TID 05/02/23 History omeprazole 40 mg capsule,delayed 40 mg PO DAILY 03/07/25 History release atorvastatin 10 mg tablet 10 mg PO HS 03/07/25 5 History benztropine 1 mg tablet 1.5 mg PO BID 03/07/2503/07 History cholecalciferol (vitamin D3) 50 50 mcg PO DAILY 03/07/25 History mcg (2,000 unit) tablet (Vitamin D3) ferrous sulfate 325 mg (65 mg 325 mg PO DAILY 03/07/25 03/07/25 History iron) capsule,extended release folic acid 1 mg tablet 1 mg PO DAILY 03/07/2503/07 History lactulose 10 gram/15 mL oral syrup 10 g PO DAILY 03/0703/07/25 History New Prescriptions to Start Prescriptions: Allergies Allergy/AdvReac Type Severity Reaction Status Date / Time No Known Allergies Allergy Verified 08/07/24 11:03 Exam Data for Last 24 hours Vital signs and Labs for Last 24 Hours: Temp Pulse Resp BP Pulse Ox O2 Del Method O2 Flow Rate 98.2 F 94 H 18 130/75 98 Nasal Cannula 2 03/07/25 00:28 03/07/25 00:28 03/07/25 00:28 03/07/25 00:28 03/06/25 22:30 03/07/25 00:28 03/07/25 00:28 Laboratory Results - last 24 hr 03/06/25 21:30: WBC 8.9, RBC 3.74 L, Hgb 11.9 L, Hct 35.1 L, MCV 93.9, MCH 31.8 H, MCHC 33.9, RDW 13.5, Plt Count 268, MPV 9.6, Neut % (Auto) 70.6, Lymph % (Auto) 15.2, Crisp % (Auto) 12.4 H, Eos % (Auto) 0.4, Baso % (Auto) 0.6, Neut # (Auto) 6.3, Lymph # (Auto) 1.4, Crisp # (Auto) 1.1 H, Eos # (Auto) 0.0, Baso # (Auto) 0.1, PT 12.6 H, INR 1.15 H, Sodium 140, Potassium 4.0, Chloride 109 H, Carbon Dioxide 15 L, Anion Gap 20.0 H, BUN 27 H, Creatinine 1.50 H, Estimated Creat Clear 52, Estimated GFR 46 L, Est GFR ( Amer) 56 L, Glucose 135 H, Calcium 9.6, Total Bilirubin 0.7, AST 35, ALT 43, Alkaline Phosphatase 143 H, Total Creatine Kinase 162, Troponin I < 0.01, Total Protein 8.2, Albumin 4.5, Globulin 3.7 H, Albumin/Globulin Ratio 1.2, Lipase 69, TSH 1.52, Free T4 0.89, Salicylates < 1.0 L, Acetaminophen < 10 L, Plasma/Serum Alcohol < 10 03/06/25 21:52: VBG pH 7.43 H, VBG pCO2 25.3 L, VBG pO2 70.0 H, VBG HCO3 16.4 L, VBG Total CO2 17.2 L, VBG O2 Saturation 93.1 H, VBG Base Excess -7.9 L, VBG Lactic Acid 4.0 H 03/06/25 21:57: Chlamy pneumoniae PCR Not detected, Adenovirus (PCR) Not detected, B. pertussis DNA (PCR) Not detected, Coronavirus OC43 (PCR) Not detected, Coronavirus HKU1 (PCR) Not detected, Coronavirus 229E (PCR) Not detected, SARS-CoV-2 (PCR) Detected A, Coronavirus NL63 (PCR) Not detected, Human Metapneumovir PCR Not detected, Influenza A (H1) PCR Not detected, Influ A (H1N1/09) PCR Not detected, Influenza A (H3) PCR Not detected, Influenza Type A (PCR) Not detected, Influenza Type B (PCR) Not detected, M. pneumoniae (PCR) Not detected, Parainfluenza 1 (PCR) Not detected, Parainfluenza 2 (PCR) Not detected, Parainfluenza 3 (PCR) Not detected, Parainfluenza 4 (PCR) Not detected, RSV (PCR) Not detected, Entero/Rhino (PCR) Not detected 03/06/25 22:40: Urine Color Yellow, Urine Appearance Clear, Urine pH 6.0, Ur Specific [place] 1.025, Urine Protein Trace, Urine Glucose (UA) Negative, Urine Ketones Trace, Urine Blood Negative, Urine Nitrate Negative, Urine Bilirubin Negative, Urine Urobilinogen 0.2, Ur Leukocyte Esterase Negative, Urine RBC None, Urine WBC Occasional, Ur Squamous Epith Cells None, Urine Bacteria Trace, Urine Opiates Screen Negative, Urine Methadone Screen Negative, Ur Barbituates Screen Negative, Ur Phencyclidine Scrn Negative, Ur Amphetamines Screen Negative, U Benzodiazepines Scrn Negative, Urine Cocaine Screen Negative, U Marijuana (THC) Screen Negative I & O for Last 24 hours: Intake & Output 03/04/25 03/05/25 03/06/25 03/07/25 23:59 23:59 23:59 23:59 Intake Total 2400 / 2400 100 / 100 Balance 2400 / 2400 100 / 100 Weight 81.647 kg Constitutional Constitutional: no acute distress, chronically ill appearing and somnolent *Routine HEENT Exam Head: Present normocephalic and atraumatic Eye: Present EOMI and PERRL ENT: Present mucous membranes dry *Routine Neck Exam Neck: Present supple *Routine Respiratory Exam Respiratory: Present normal respiratory effort *Routine Cardiovascular Exam Cardiovascular: Present RRR, Normal S1 and Normal S2 *Routine Abdominal Exam Abdominal: Present soft and normoactive bowel sounds *Routine Rectal Exam Rectal:: deferred *Routine Genitalia Exam Genitalia:: deferred *Routine Extremities Exam Extremities: Present full ROM, pulses intact and normal capillary refill *Routine Skin Exam Skin: Present intact *Routine Neurological Exam Neurological: Present altered mental status Assessment and Plan *Assessment and plan (1) Acute metabolic encephalopathy: Status: Acute Category: Medical Code(s): G93.41 - Metabolic encephalopathy (2) Severe sepsis: Status: Acute Category: Medical Code(s): A41.9 - Sepsis, unspecified organism; R65.20 - Severe sepsis without septic shock (3) Acute appendicitis: Status: Acute Qualifiers: Acute appendicitis type: unspecified acute appendicitis type Qualified Code(s): K35.80 - Unspecified acute appendicitis Category: Medical Code(s): K35.80 - Unspecified acute appendicitis (4) COVID-19: Status: Acute Category: Medical Code(s): U07.1 - COVID-19 (5) EMELINA (acute kidney injury): Status: Acute Category: Medical Code(s): N17.9 - Acute kidney failure, unspecified (6) Schizophrenia, chronic condition: Status: Acute Category: Medical Code(s): F20.9 - Schizophrenia, unspecified (7) GERD (gastroesophageal reflux disease): Status: Acute Qualifiers: Esophagitis presence: without esophagitis Qualified Code(s): K21.9 - Gastro-esophageal reflux disease without esophagitis Category: Medical Code(s): K21.9 - Gastro-esophageal reflux disease without esophagitis Plan Assessment/plan: This case was discussed with the emergency department provider and agree with admission. He is a 69-year-old male who presented with altered mental status. Initial stroke workup obtained and was unremarkable. Significant workup findings included, febrile on arrival with a temperature of 103.[address] ?[address] abdomen and pelvis positive for acute appendicitis without perforation. Viral panel positive for COVID. Received IV sepsis fluid bolus, BC obtained, broad- spectrum IV antibiotics. ED provider spoke to on-call surgical provider who agreed to see in consult. Recommended continuation of IV antibiotics, n.p.o. status. Will resume IV antibiotics, IV medication for pain as needed, IV antiemetics. Amission to med tele. Trend labs. 1. Acute metabolic encephalopathy/severe sepsis/COVID: Presented febrile with a temperature of 103.5 ?F, tachycardic-HR > 90, tachypneic, VBG lactic acid 4.0, mildly hypoxic- saturation 90% placed on 2 L. Received sepsis IV fluid bolus, broad-spectrum IV antibiotics. Received IV vancomycin and Zosyn. Cultures obtained and pending. Suspect multilateral in nature with underlying positive COVID status and acute appendicitis. Resume IV fluids, IV antibiotics. Repeat lactic pending. Hemodynamically stable at time of assessment, BP 130/75, HR 94, RR 18, temp 98.2, O2 sats 99% on 2 L nasal cannula. Admitted to med telemetry. 2. Acute appendicitis: Imaging study as noted above with evidence of acute appendicitis without perforation. ED provider discussed patient's case with on- call surgical provider who agreed to see patient in consultation, recommendation to resume IV antibiotics, n.p.o. status. IV morphine as needed for pain management, IV Zofran as needed for nausea management. 3. EMELINA: Creatinine 1.50, GFR 46, BUN 27. Baseline creatinine approximately 1.0-1.2, GFR 60-74. Continue IV fluids for hydration, monitor renal status with morning labs. Avoid nephrotoxic medication. 4. Schizophrenia, chronic: Resume home medications after surgical procedure/n.p.o. status-> Home meds include benztropine 1.5 mg and haloperidol 10 mg. Patient currently subdued likely due to receiving Versed per agitation/combative behavior in the emergency department. Continue to monitor neurostatus. 5. HLD: As noted above will resume home medication after n.p.o./procedure. Medication includes atorvastatin 10 mg nightly. 6. DVT prophylaxis: SCD's Full code NPO
[2025-03-07] MEDS: 0.9 % SODIUM CHLORIDE 1000ML 1,000 ML 100 ML IV ×2 (01:55→20:29)
[2025-03-07 01:57] LABS: Reflex Lactic Add Lactic Reflex
[2025-03-07 02:41] LABS: Lactic Acid Follow Up (RFLX 1) 0.7 mmol/L (0.7-2.1)
[2025-03-07 02:55] LABS: Troponin I < 0.01 ng/ml (0.00-0.034)
[2025-03-07] MEDS: PIPERCILLIN/TAZO 3.375 GM in 0.9 % SODIUM CHLORIDE 50 ML IV ×3 (03:45→18:38)
[2025-03-07 07:23] LABS: Hematocrit 34.9 % (42.0-52.0); Hemoglobin 10.9 g/dL (14.1-18.0); Immature Granulocytes % 0.9 %; Mean Corpuscular HGB Conc 31.2 g/dL (31.8-35.4); Mean Corpuscular Hemoglobin 30.7 pg (27.0-31.2); Mean Corpuscular Volume 98.3 fl (80-94); Nucleated Red Blood Cells % 0 %; Platelet Count 226 K/mm3 (142-424); Red Blood Count 3.55 M/mm3 (4.60-6.20); Red Cell Distribution Width-SD 50.1 fL; White Blood Count 5.6 K/mm3 (4.8-10.8)
[2025-03-07 07:27] LABS: Albumin Level 3.7 g/dl (3.5-5.0); Chloride 113 mmol/L (98-107); Potassium 3.7 mmoL/L (3.5-5.1); Sodium 144 mmol/L (136-145)
[2025-03-07 07:29] LABS: Blood Urea Nitrogen 20 mg/dl (9-20); Creatinine Clearance Estimated 55 mL/min (50-200); Creatinine,Serum 1.40 mg/dl (0.66-1.25); Estimated Glomerular Filt Rate 50 ml/min (>60); GFR (African American) 60 ML/MIN (>60)
[2025-03-07 07:30] LABS: Alanine Aminotransferase 27 U/L (12-78); Albumin/Globulin Ratio 1.2 (1.1-1.8); Alkaline Phosphatase 120 U/L (38-126); Anion Gap 11.7 mEq/L (5-15); Aspartate Amino Transferase 25 U/L (17-59); Bilirubin,Total 0.6 mg/dl (0.2-1.3); Calcium 8.9 mg/dl (8.4-10.2); Carbon Dioxide 23 mmol/L (22.0-30.0); Globulin 3.1 g/dL (1.3-3.2); Glucose 97 mg/dl (74-100); Total Protein,Serum 6.8 g/dl (6.3-8.2)
[2025-03-07 08:01] LABS: Troponin I 0.01 ng/ml (0.00-0.034)
--- NOTE | 2025-03-07 08:04 | PC.NURSE ---
PT ENDORSES THAT HE DOES NOT HAVE ANY JEWELRY, DENTURES OR PARTIALS, HEARING AIDS, OR CONTACTS. PT IS DIFFICULT TO AROUSE AND IS NON PARTICIPATORY IN CONVERSATION. PT DID MUMBLE NO TO THE ABOVE QUESTIONS. NONE OF THESE ITEMS ARE VISIBLE.
--- NOTE | 2025-03-07 08:20 | EXP.SURG.CON ---
History of Present Illness *Admission Date: 03/07/25 *Reason for visit:: Appendicitis *History of present illness: This is a 69-year-old gentleman with recent decline as noted below. Evaluation emergency department included a CT scan which revealed changes consistent with appendicitis. The surgical service was consulted. Forwarded from admission H&P: Marshall Schroeder is a 69-year-old with a past medical significant for schizophrenia, GERD and anxiety. Presents to [facility] emergency department [facility]. History obtained per chart review and staff, as patient is a poor historian due to altered mental status. Patient reported to be altered throughout the day, becoming tremulous and ultimately nonverbal. At baseline noted to be alert and talkative. Significant ED workup findings include, CT abdomen and pelvis positive for acute appendicitis. Viral panel positive for COVID. Febrile, temp 103.5 ?F. Hospital medicine consulted for admission. ED workup included laboratory and imaging studies. WBC within normal limit 8.9, PT 12.6, INR 1.15, anion gap 20, creatinine 1.5, GFR 46, BUN 27, alkaline phos 14. VBG pH 7.43, HCO3 16.4, total CO2 17.2, lactic acid 4.0. respiratory pathogen panel (+) COVID. Imaging study included; abdomen and pelvis CT personally reviewed, revealing acute appendicitis without perforation. Chest CTA, head CT, personally reviewed and is without acute finding. Neck CTA I personally reviewed showing plaque at the carotid bifurcations without hemodynamically significant stenosis. Moderate bilateral internal carotid chain adenopathy coronal. Multilevel degenerative change in the cervical spine with disc space narrowing predominantly at C4-C5, C5-C6 and C6-C7 levels with disc space narrowing small disc osteophyte complexes. Mild centrilobular emphysema. Assessment of patient at bedside, he is without acute distress- somnolent. Arouses with mild stimuli. Patient reportedly became very agitated/combative while in the emergency department, received Versed 2mg. Vitals stable, on 2 L nasal cannula. [facility] Disclaimer: The information contained in this section may have been updated after the patient was seen, as this information can be updated by other users. Social History Smoking Status: Unknown if ever smoked alcohol intake: never current occupational status: unemployed Travel in the last 8 weeks?: None Review of Systems Review of Systems Review of systems:: unable to obtain *Neurologic Neurologic: Reports as per [facility] Meds Home Medications and Allergies Home Medications ?Medication ?Instructions ?Recorded ?Confirmed ?Type haloperidol 10 mg tablet 10 mg PO TID 05/02/23 03/07/25 History omeprazole 40 mg capsule,delayed 40 mg PO DAILY 05/02/23 03/07/25 History release atorvastatin 10 mg tablet 10 mg PO HS 03/07/25 03/07/25 History benztropine 1 mg tablet 1.5 mg PO BID 03/07/25 03/07/25 History cholecalciferol (vitamin D3) 50 50 mcg PO DAILY 03/07/25 03/07/25 History mcg (2,000 unit) tablet (Vitamin D3) ferrous sulfate 325 mg (65 mg 325 mg PO DAILY 03/07/25 03/07/25 History iron) capsule,extended release folic acid 1 mg tablet 1 mg PO DAILY 03/07/25 03/07/25 History lactulose 10 gram/15 mL oral syrup 10 g PO DAILY 03/07/25 03/07/25 History New Prescriptions to Start Prescriptions: Allergies Allergy/AdvReac Type Severity Reaction Status Date / Time No Known Allergies Allergy Verified 08/07/24 11:03 Exam (Inpt) Vital signs and Labs for Last 24 Hours: Temp Pulse Resp BP Pulse Ox O2 Del Method O2 Flow Rate 97.9 F 57 L 16 112/48 L 99 Nasal Cannula 2 03/07/25 07:51 03/07/25 07:51 03/07/25 07:51 03/07/25 07:51 03/07/25 07:51 03/07/25 07:51 03/07/25 07:51 Laboratory Results - last 24 hr 03/06/25 21:30: WBC 8.9, RBC 3.74 L, Hgb 11.9 L, Hct 35.1 L, MCV 93.9, MCH 31.8 H, MCHC 33.9, RDW 13.5, Plt Count 268, MPV 9.6, Neut % (Auto) 70.6, Lymph % (Auto) 15.2, [place] % (Auto) 12.4 H, Eos % (Auto) 0.4, Baso % (Auto) 0.6, Neut # (Auto) 6.3, Lymph # (Auto) 1.4, [place] # (Auto) 1.1 H, Eos # (Auto) 0.0, Baso # (Auto) 0.1, PT 12.6 H, INR 1.15 H, Sodium 140, Potassium 4.0, Chloride 109 H, Carbon Dioxide 15 L, Anion Gap 20.0 H, BUN 27 H, Creatinine 1.50 H, Estimated Creat Clear 52, Estimated GFR 46 L, Est GFR ( Amer) 56 L, Glucose 135 H, Calcium 9.6, Total Bilirubin 0.7, AST 35, ALT 43, Alkaline Phosphatase 143 H, Total Creatine Kinase 162, Troponin I < 0.01, Total Protein 8.2, Albumin 4.5, Globulin 3.7 H, Albumin/Globulin Ratio 1.2, Lipase 69, TSH 1.52, Free T4 0.89, Salicylates < 1.0 L, Acetaminophen < 10 L, Plasma/Serum Alcohol < 10 03/06/25 21:52: VBG pH 7.43 H, VBG pCO2 25.3 L, VBG pO2 70.0 H, VBG HCO3 16.4 L, VBG Total CO2 17.2 L, VBG O2 Saturation 93.1 H, VBG Base Excess -7.9 L, VBG Lactic Acid 4.0 H 03/06/25 21:57: Chlamy pneumoniae PCR Not detected, Adenovirus (PCR) Not detected, B. pertussis DNA (PCR) Not detected, Coronavirus OC43 (PCR) Not detected, Coronavirus HKU1 (PCR) Not detected, Coronavirus 229E (PCR) Not detected, SARS-CoV-2 (PCR) Detected A, Coronavirus NL63 (PCR) Not detected, Human Metapneumovir PCR Not detected, Influenza A (H1) PCR Not detected, Influ A (H1N1/09) PCR Not detected, Influenza A (H3) PCR Not detected, Influenza Type A (PCR) Not detected, Influenza Type B (PCR) Not detected, M. pneumoniae (PCR) Not detected, Parainfluenza 1 (PCR) Not detected, Parainfluenza 2 (PCR) Not detected, Parainfluenza 3 (PCR) Not detected, Parainfluenza 4 (PCR) Not detected, RSV (PCR) Not detected, Entero/Rhino (PCR) Not detected 03/06/25 22:40: Urine Color Yellow, Urine Appearance Clear, Urine pH 6.0, Ur Specific [place] 1.025, Urine Protein Trace, Urine Glucose (UA) Negative, Urine Ketones Trace, Urine Blood Negative, Urine Nitrate Negative, Urine Bilirubin Negative, Urine Urobilinogen 0.2, Ur Leukocyte Esterase Negative, Urine RBC None, Urine WBC Occasional, Ur Squamous Epith Cells None, Urine Bacteria Trace, Urine Opiates Screen Negative, Urine Methadone Screen Negative, Ur Barbituates Screen Negative, Ur Phencyclidine Scrn Negative, Ur Amphetamines Screen Negative, U Benzodiazepines Scrn Negative, Urine Cocaine Screen Negative, U Marijuana (THC) Screen Negative 03/07/25 02:17: Lactate 0.7, Troponin I < 0.01 03/07/25 06:00: WBC 5.6 D, RBC 3.55 L, Hgb 10.9 L, Hct 34.9 L, MCV 98.3 H, MCH 30.7, MCHC 31.2 L, RDW 13.8, Plt Count 226, MPV 9.2, Neut % (Auto) 58.4, Lymph % (Auto) 24.7, [place] % (Auto) 13.7 H, Eos % (Auto) 1.8, Baso % (Auto) 0.5, Neut # (Auto) 3.2, Lymph # (Auto) 1.4, [place] # (Auto) 0.8, Eos # (Auto) 0.1, Baso # (Auto) 0.0, Sodium 144, Potassium 3.7, Chloride 113 H, Carbon Dioxide 23, Anion Gap 11.7, BUN 20 D, Creatinine 1.40 H, Estimated Creat Clear 55, Estimated GFR 50 L, Est GFR ( Amer) 60, Glucose 97 D, Calcium 8.9, Total Bilirubin 0.6, AST 25 D, ALT 27 D, Alkaline Phosphatase 120, Troponin I 0.01, Total Protein 6.8, Albumin 3.7 D, Globulin 3.1, Albumin/Globulin Ratio 1.2 I & O for Labs for Last 24 Hours: Intake & Output 03/04/25 03/05/25 03/06/25 03/07/25 11:59 11:59 11:59 11:59 Intake Total 2850 / 2850 Output Total 2500 / 2500 Balance 350 / 350 Weight 176 lb 12.972 oz Constitutional: no acute distress Comment:: Essentially noncommunicative/avoidant Respiratory: Absent respiratory distress Cardiac: Absent Tachycardia Comments:: Exam deferred secondary to patient's lack of cooperation Results Labs 03/07/25 06:00 03/07/25 06:00 Labs: Laboratory Results - last 24 hr 03/06/25 21:30: WBC 8.9, RBC 3.74 L, Hgb 11.9 L, Hct 35.1 L, MCV 93.9, MCH 31.8 H, MCHC 33.9, RDW 13.5, Plt Count 268, MPV 9.6, Neut % (Auto) 70.6, Lymph % (Auto) 15.2, [place] % (Auto) 12.4 H, Eos % (Auto) 0.4, Baso % (Auto) 0.6, Neut # (Auto) 6.3, Lymph # (Auto) 1.4, [place] # (Auto) 1.1 H, Eos # (Auto) 0.0, Baso # (Auto) 0.1, PT 12.6 H, INR 1.15 H, Sodium 140, Potassium 4.0, Chloride 109 H, Carbon Dioxide 15 L, Anion Gap 20.0 H, BUN 27 H, Creatinine 1.50 H, Estimated Creat Clear 52, Estimated GFR 46 L, Est GFR ( Amer) 56 L, Glucose 135 H, Calcium 9.6, Total Bilirubin 0.7, AST 35, ALT 43, Alkaline Phosphatase 143 H, Total Creatine Kinase 162, Troponin I < 0.01, Total Protein 8.2, Albumin 4.5, Globulin 3.7 H, Albumin/Globulin Ratio 1.2, Lipase 69, TSH 1.52, Free T4 0.89, Salicylates < 1.0 L, Acetaminophen < 10 L, Plasma/Serum Alcohol < 10 03/06/25 21:52: VBG pH 7.43 H, VBG pCO2 25.3 L, VBG pO2 70.0 H, VBG HCO3 16.4 L, VBG Total CO2 17.2 L, VBG O2 Saturation 93.1 H, VBG Base Excess -7.9 L, VBG Lactic Acid 4.0 H 03/06/25 21:57: Chlamy pneumoniae PCR Not detected, Adenovirus (PCR) Not detected, B. pertussis DNA (PCR) Not detected, Coronavirus OC43 (PCR) Not detected, Coronavirus HKU1 (PCR) Not detected, Coronavirus 229E (PCR) Not detected, SARS-CoV-2 (PCR) Detected A, Coronavirus NL63 (PCR) Not detected, Human Metapneumovir PCR Not detected, Influenza A (H1) PCR Not detected, Influ A (H1N1/09) PCR Not detected, Influenza A (H3) PCR Not detected, Influenza Type A (PCR) Not detected, Influenza Type B (PCR) Not detected, M. pneumoniae (PCR) Not detected, Parainfluenza 1 (PCR) Not detected, Parainfluenza 2 (PCR) Not detected, Parainfluenza 3 (PCR) Not detected, Parainfluenza 4 (PCR) Not detected, RSV (PCR) Not detected, Entero/Rhino (PCR) Not detected 03/06/25 22:40: Urine Color Yellow, Urine Appearance Clear, Urine pH 6.0, Ur Specific [place] 1.025, Urine Protein Trace, Urine Glucose (UA) Negative, Urine Ketones Trace, Urine Blood Negative, Urine Nitrate Negative, Urine Bilirubin Negative, Urine Urobilinogen 0.2, Ur Leukocyte Esterase Negative, Urine RBC None, Urine WBC Occasional, Ur Squamous Epith Cells None, Urine Bacteria Trace, Urine Opiates Screen Negative, Urine Methadone Screen Negative, Ur Barbituates Screen Negative, Ur Phencyclidine Scrn Negative, Ur Amphetamines Screen Negative, U Benzodiazepines Scrn Negative, Urine Cocaine Screen Negative, U Marijuana (THC) Screen Negative 03/07/25 02:17: Lactate 0.7, Troponin I < 0.01 03/07/25 06:00: WBC 5.6 D, RBC 3.55 L, Hgb 10.9 L, Hct 34.9 L, MCV 98.3 H, MCH 30.7, MCHC 31.2 L, RDW 13.8, Plt Count 226, MPV 9.2, Neut % (Auto) 58.4, Lymph % (Auto) 24.7, [place] % (Auto) 13.7 H, Eos % (Auto) 1.8, Baso % (Auto) 0.5, Neut # (Auto) 3.2, Lymph # (Auto) 1.4, [place] # (Auto) 0.8, Eos # (Auto) 0.1, Baso # (Auto) 0.0, Sodium 144, Potassium 3.7, Chloride 113 H, Carbon Dioxide 23, Anion Gap 11.7, BUN 20 D, Creatinine 1.40 H, Estimated Creat Clear 55, Estimated GFR 50 L, Est GFR ( Amer) 60, Glucose 97 D, Calcium 8.9, Total Bilirubin 0.6, AST 25 D, ALT 27 D, Alkaline Phosphatase 120, Troponin I 0.01, Total Protein 6.8, Albumin 3.7 D, Globulin 3.1, Albumin/Globulin Ratio 1.[address] scan - abdomen: report reviewed and image reviewed CT scan - pelvis: report reviewed and image reviewed Assessment and Plan *Assessment and plan (1) Acute appendicitis: Status: Acute Qualifiers: Acute appendicitis type: unspecified acute appendicitis type Qualified Code(s): K35.80 - Unspecified acute appendicitis Category: Medical Code(s): K35.80 - Unspecified acute appendicitis Plan: Continue overall management as per primary service. Appendectomy this a.m. Risks and benefits have been discussed with the patient's brother (POA). He agrees to proceed. (2) Schizophrenia, chronic condition: Status: Acute Category: Medical Code(s): F20.9 - Schizophrenia, unspecified
[2025-03-07] MEDS: METRONIDAZ/SOD CHL 500 MG/100 ML PIGGYBACK 100 MG IV (08:52)
--- NOTE | 2025-03-07 08:52 | EXP.ANES.CKL ---
[facility] Disclaimer: The information contained in this section may have been updated after the patient was seen, as this information can be updated by other users. Social History Smoking Status: Unknown if ever smoked alcohol intake: never substance use type: unknown current occupational status: unemployed Travel in the last 8 weeks?: None [facility] Anesthesia Checklist Patient Identification Patient Identification: Arm Band Structural Data Admitted From: Inpatient Planned Operative Procedure/s: lap appy Consent for Planned Operative Procedure(s) Verified: Yes Verified Documents: Surgical Consent and History and Physical NPO Status Verified Time NPO: 00:00 Neurological Assessment Level of Consciousness: Lethargic, Inappropriate, Disoriented, Combative and Restless Genitourinary Assessment Urinary Catheter Present: Uretheral (Pak) Anesthesia Plan Anesthesia Risk discussed: Yes Anesthesia Plan: Not verified due to Patient Condition ASA Class: III Anesthesia Type: General
[2025-03-07] MEDS: LIDOCAINE 1% 20ML MDV 20 ML (08:53)
[2025-03-07] MEDS: SODIUM CHLORIDE IRRIG SOLUTION 3,000 ML 200 ML IR (08:54)
--- NOTE | 2025-03-07 11:26 | P.OP_ITS ---
Date of procedure: 03/07/25 Pre-op Diagnosis:: Acute appendicitis Post-op Diagnosis:: Acute appendicitis with profound necrosis and focal perforation/abscess Procedure performed:: Laparoscopic appendectomy Surgeon:: Jens Mccall MD ROTARY BAR OPERATOR:: Verito Giraldo Anesthesia: GETA Estimated blood loss (mL): 15 Operative findings:: Profound inflammation throughout right lower quadrant Necrotic appendix with focal necrosis/abscess Appendix, mesoappendix, cecum/right colon, and small bowel densely adhesed into a single concretion Above-stated concretion densely adhesed to right lateral sidewall and retroperitoneum Lack of definitive anatomic differentiation (base versus tip of the appendix, etc.) secondary to above-stated findings No obvious injury to colon or small bowel Ureter not visualized Jarret-Shelby drains (x 2) placed in right lower quadrant Operative note:: After informed consent was obtained the patient was taken to the operating room and placed in the supine position. General anesthesia was induced and the patient's abdomen was prepped and draped in a sterile fashion. After infiltration with local anesthetic a supraumbilical incision was made. A Veress needle was placed in position. The abdomen was insufflated. A 12 mm optical trocar was placed in position. Under direct visualization a 5 mm trocar was placed in the suprapubic position and an additional 5 mm trocar was placed in the left lower quadrant. Evaluation revealed profound inflammatory changes and dense adhesions throughout the right lower quadrant. The apparent appendix and all surrounding tissue was essentially densely adhesed into a single concretion . Initial attention was focused on medial rotation and dissection of the above-stated tissue from the right lateral sidewall. Dense adhesions to the right lateral sidewall and retroperitoneum noted. No significant bleeding noted. The ureter was not visualized. No obvious injury to the right colon/cecum/small bowel noted. Obvious appendiceal necrosis with focal abscess noted. Purulent fluid was evacuated from the region. The apparent appendix was carefully elevated as dissection continued. Complete elevation and separation from surrounding tissue was not able to be safely accomplished secondary to the above-stated findings. Differentiation of the base of the appendix versus the tip of the appendix was not evident with 100% certainty. What was felt to most likely represent the base of the appendix with all surrounding inflammatory tissue was transected utilizing the Endopath 45 stapling device. No obvious injury to small bowel or colon was noted. Further evaluation revealed that this tissue was simply a small portion of the appendix with central necrosis/transection noted. This portion of the appendix was placed in a retrieval bag and removed through the supraumbilical trocar site. Additional appendiceal tissue was elevated to the degree possible. A combination of blunt dissection and careful dissection with harmonic cecille was utilized to free the tissue to the degree possible prior to transection with the Endopath 45 stapling device. This portion of the appendix was removed through the supraumbilical trocar site. The right lower quadrant was thoroughly irrigated. No active bleeding or sign of injury was noted. Two #10 flat Jarret-Shelby drains were placed along the operative field and exited through the 5 mm trocar sites. The drains were secured with a combination of Nurolon and nylon at the skin. The supraumbilical trocar was removed after pneumoperitoneum was released. Fascia was closed with 0 Ethibond. The wound was thoroughly irrigated and skin was reapproximated with interrupted 4-0 Monocryl in a subcuticular manner. Dressings were applied and the patient was transferred to recovery in stable condition after extubation. Condition: stable Disposition: PACU Specimens:: Appendix Complications:: No immediate
--- NOTE | 2025-03-07 11:28 | HMH.PHAAMS2 ---
- Antimicrobial Stewardship Review culture & sensitivity review Stewardship interventions: culture & sensitivity review (CURRENTLY RECEIVING ZOSYN FOR ACUTE ABDOMEN, WBC WNL, AFEBRILE.)
--- NOTE | 2025-03-07 11:46 | P.PNANES_ITS ---
[facility] Anesthesia Record Part I Anesthesia Record I Intake, IV Amount: 1,000 Hydration: Adequate Estimated blood loss (mL): 0 Urine output (mL): 0 Blood Pressure: 140/65 SaO2: 100 Pulse Rate: 72 Airway Patency: Patent Respiratory Rate: 18 Temperature: 97.5 F Patient is:: Awake, Drowsy and Mask O2 Stable to PACU at:: 11:30
--- NOTE | 2025-03-07 18:56 | PC.NURSE ---
30ml dumped from BALJINDER drains.
[2025-03-07] MEDS: PANTOPRAZOLE 40MG TABLET 40 MG PO (20:29)
[2025-03-08] VITALS (9 sets, daily range): BP systolic 109–137; BP diastolic 56–75; PULSE 60–82; RESP 16–22; TEMP 36.4–37.2; O2SAT 96–100; BMI 24.8
[2025-03-08] MEDS: PIPERCILLIN/TAZO 3.375 GM in 0.9 % SODIUM CHLORIDE 50 ML IV (02:43)
--- NOTE | 2025-03-08 03:14 | PC.NURSE ---
Pt has been very somnolent throughout the shift. He was woke up a few time and was able to answer questions. He is only alert to self. 3 lap sites noted with dressing c/d/i. BALJINDER drains in place. Pak has also remained in place and is draining well. NS has remained infusing at 100ml/hr. Receiving IV abx. Currently resting in bed with bed alarm in place.
--- NOTE | 2025-03-08 05:26 | XR_ITS ---
PROCEDURE INFORMATION: Exam: XR Chest Exam date and time: 03/08/2025 5:34 AM Age: 69 years old Clinical indication: Shortness of breath; Additional info: SOB TECHNIQUE: Imaging protocol: Radiologic exam of the chest. Views: 1 view. COMPARISON: CT ANGIO CHEST PE PROTOCOL 03/06/2025 10:17 PM FINDINGS: Lungs: Patchy opacity in the right lung base likely represents atelectasis or infection. Pleural spaces: Unremarkable. No pleural effusion. No pneumothorax. Heart/Mediastinum: Unremarkable. No cardiomegaly. Bones/joints: Unremarkable. IMPRESSION: Patchy opacity in the right lung base likely represents atelectasis or infection.
--- NOTE | 2025-03-08 05:49 | PC.NURSE ---
Pt bed alarm began going off. When arriving to the room pt was making his way to the bathroom. IV and herron were both pulled out. Pt seemed to be hyperventilating. Hospitalist was notified and arrived to the bedside. Pt was assisted back to bed and oxygen placed back on patient. O2 sat read 98% at that time. A chest xray as well as a VBG was ordered. Pt got back up two more times to attempt to urinate. When asked about herron, hospitalist said to hold off on replacing herron at this time. Pt placed on 1:1 at this time. Currently sitting up in bed with bed alarm in place.
[2025-03-08 06:31] LABS: Hematocrit 31.4 % (42.0-52.0); Hemoglobin 10.6 g/dL (14.1-18.0); Immature Granulocytes % 0.6 %; Mean Corpuscular HGB Conc 33.8 g/dL (31.8-35.4); Mean Corpuscular Hemoglobin 31.6 pg (27.0-31.2); Mean Corpuscular Volume 93.7 fl (80-94); Nucleated Red Blood Cells % 0 %; Platelet Count 218 K/mm3 (142-424); Red Blood Count 3.35 M/mm3 (4.60-6.20); Red Cell Distribution Width-SD 45.3 fL; White Blood Count 7.7 K/mm3 (4.8-10.8)
[2025-03-08 06:39] LABS: Albumin Level 3.5 g/dl (3.5-5.0); Chloride 113 mmol/L (98-107); Sodium 141 mmol/L (136-145)
[2025-03-08 06:40] LABS: Potassium 3.2 mmoL/L (3.5-5.1)
[2025-03-08 06:42] LABS: Alanine Aminotransferase 28 U/L (12-78); Albumin/Globulin Ratio 1.2 (1.1-1.8); Alkaline Phosphatase 115 U/L (38-126); Anion Gap 12.2 mEq/L (5-15); Aspartate Amino Transferase 28 U/L (17-59); Bilirubin,Total 0.7 mg/dl (0.2-1.3); Blood Urea Nitrogen 18 mg/dl (9-20); Calcium 8.7 mg/dl (8.4-10.2); Carbon Dioxide 19 mmol/L (22.0-30.0); Creatinine Clearance Estimated 64 mL/min (50-200); Creatinine,Serum 1.20 mg/dl (0.66-1.25); Estimated Glomerular Filt Rate 60 ml/min (>60); GFR (African American) 72 ML/MIN (>60); Globulin 3.0 g/dL (1.3-3.2); Glucose 97 mg/dl (74-100); Magnesium 2.0 mg/dl (1.6-2.3); Total Protein,Serum 6.5 g/dl (6.3-8.2)
--- OUTSIDE RECORDS SUMMARY | 2025-03-08 08:11 | XMS_ITS | Clinical Summary ---
Author Organization [facility] Address [address] [place] [address] Care Team Providers Care Foundry Molder Name Role Phone Avelino Maynard APRN Primary Care Provider [phone] Allergies No known active allergies Medications haloperidol [...] place to sleep or slept in a fci (including now)? No 05/07/2023 Utilities Answer Date [...] of 2) 10/23/2003 [facility]-Depression Screening 05/19/2024 05/20/2023 [id number] Vaccine (1 - season) 2024 [facility]-Influenza Vaccine [...] this topic Medical Devices Implanted Type Area Gate Services Supervisor Device Identifier Shelf Expiration Date Model / Serial / Lot Nail Long Troch Kit Ti [id number] - [id number] Implanted:Qty: 1 on 05/05/2023 by Sebastian Hall MD at [facility] Nail Left: Femur [employer] [facility][id number] 11/16/2027 [id number] / / [id number] Screw Lag Gamma3 10.5mm Ti 105mm - [id number] Implanted:Qty: 1 on 05/05/2023 by Sebastian Hall MD at [facility] Screw Left: Femur [employer] ([employer])-[id number] 11/16/2027 [id number] / / [id number] Screw 5.0mm Lock Full Thrd 32.5mm - [id number] Implanted:Qty: 1 on 05/05/2023 by Sebastian Hall MD at [facility] Screw Left: Femur [employer] ([employer])-[id number] 11/16/2027 [id number] / / [id number] Procedures Procedure Name Priority Date/Time Associated Diagnosis [...] ORDERABLES Final Re sult Performing Organization Address City/State/[facility] Co de Phone Number HEALTHCARE [facility] [address] [place] [address] from Last 3 Months or Most Recently Relevant to Health Maintenance Insurance [facility] Care Teams Foundry Molder Relationship Specialty Start Date End Date Avelino Maynard APRN [address] [place] [address] PCP - General 05/04/23
--- NOTE | 2025-03-08 08:36 | EXP.SURG.PN ---
Subjective Patient reports: feels better Exam Data for Last 24 hours Vital signs and Labs for Last 24 Hours: Temp Pulse Resp BP Pulse Ox O2 Del Method O2 Flow Rate 97.9 F 69 16 123/67 97 Nasal Cannula 2 03/08/25 04:00 03/08/25 04:00 03/08/25 04:00 03/08/25 04:00 03/08/25 04:00 03/08/25 06:36 03/08/25 06:36 Laboratory Results - last 24 hr 03/08/25 06:20: WBC 7.7 D, RBC 3.35 L, Hgb 10.6 L, Hct 31.4 L, MCV 93.7, MCH 31.6 H, MCHC 33.8, RDW 13.2, Plt Count 218, MPV 8.9, Neut % (Auto) 75.0, Lymph % (Auto) 14.6, [place] % (Auto) 8.8, Eos % (Auto) 0.9, Baso % (Auto) 0.1, Neut # (Auto) 5.8, Lymph # (Auto) 1.1, [place] # (Auto) 0.7, Eos # (Auto) 0.1, Baso # (Auto) 0.0, Sodium 141, Potassium 3.2 L, Chloride 113 H, Carbon Dioxide 19 L, Anion Gap 12.2, BUN 18, Creatinine 1.20, Estimated Creat Clear 64, Estimated GFR 60, Est GFR ( Amer) 72, Glucose 97, Calcium 8.7, Magnesium 2.0, Total Bilirubin 0.7, AST 28, ALT 28, Alkaline Phosphatase 115, Total Protein 6.5, Albumin 3.5, Globulin 3.0, Albumin/Globulin Ratio 1.2 I & O for Last 24 hours: Intake & Output 03/05/25 03/06/25 03/07/25 03/08/25 11:59 11:59 11:59 11:59 Intake Total 4050 / 4050 1200 / 1200 Output Total 2500 / 2500 3125 / 3125 Balance 1550 / 1550 -1925 / -1925 Weight 176 lb 12.972 oz 177 lb 11.081 oz Microbiology Reports for the Last 24 Hours: Microbiology 03/06/25 21:48 Blood Blood Culture - Preliminary NO GROWTH AFTER 24 HOURS 03/06/25 21:48 Blood Blood Culture - Preliminary NO GROWTH AFTER 24 HOURS Constitutional Constitutional: no acute distress and cooperative Comments: More communicative *Routine Respiratory Exam Respiratory: Absent respiratory distress *Routine Cardiovascular Exam Cardiovascular: Absent tachycardia *Routine Abdominal Exam Abdominal: Present soft Comments: Dressings intact. Cloudy Jarret-Shelby drainage output. Progress Note: A&P Assessment and plan (1) Acute perforated appendicitis: Status: Acute Assessment and plan: Stable postoperative day 1 status post laparoscopic appendectomy (see operative report for detail). Increase ambulation Advance diet Continue IV antibiotics for now Continue serial exams
--- NOTE | 2025-03-08 08:43 | HMH.PHAAMS2 ---
- Antimicrobial Stewardship Review culture & sensitivity review Stewardship interventions: culture & sensitivity review (CURRENTLY RECEIVING ZOSYN FOR ACUTE ABDOMEN, WBC WNL, AFEBRILE, BLD CX NEGATIVE.)
--- NOTE | 2025-03-08 08:57 | P.PN_ITS ---
Subjective *Date: 03/08/25 *Time: 10:21 Interval history: Patient still having some pain. Has not passed gas but has good bowel sounds on exam. Tolerating p.o. intake. No nausea or vomiting. Self extracted Pak catheter overnight. Denies any hematuria. Current stable on 2 L oxygen with sats in the high 90s. Knows who he is and answers questions appropriately but is not oriented to situation fully. Reportedly has confusion at baseline. Medical Exam Vital signs and Labs for Last 24 Hours: Vital Signs Temp Pulse Pulse Resp BP BP Pulse Ox 03/08/25 08:00 98.2 F 65 18 127/70 97 03/08/25 06:36 03/08/25 05:00 03/08/25 04:00 60 03/08/25 04:00 97.9 F 69 16 123/67 97 03/08/25 03:00 03/08/25 01:00 03/08/25 00:00 60 03/07/25 23:51 97.9 F 65 14 129/57 L 96 03/07/25 23:00 03/07/25 20:50 03/07/25 20:00 70 03/07/25 20:00 97.5 F L 82 16 116/72 97 03/07/25 19:47 03/07/25 18:57 03/07/25 17:00 03/07/25 16:00 70 03/07/25 15:41 97.8 F 84 16 118/60 95 03/07/25 15:00 03/07/25 14:50 75 18 128/71 94 L 03/07/25 14:20 71 16 127/64 93 L 03/07/25 13:50 80 18 125/85 92 L 03/07/25 13:20 71 16 126/69 93 L 03/07/25 13:00 03/07/25 12:50 62 16 126/65 94 L 03/07/25 12:35 67 18 119/90 92 L 03/07/25 12:20 60 18 130/82 90 L 03/07/25 12:05 98.0 F 82 16 125/75 92 L 03/07/25 12:00 80 03/07/25 12:00 97.5 F L 77 16 137/71 100 03/07/25 11:50 97.5 F L 75 16 125/64 100 03/07/25 11:47 97.5 F L 72 18 140/65 03/07/25 11:40 97.5 F L 68 16 110/62 100 03/07/25 11:30 97.5 F L 69 16 106/56 L 100 03/07/25 11:20 97.5 F L 68 16 100/55 L 100 O2 Del Method O2 Flow Rate 03/08/25 08:00 Nasal Cannula 2 03/08/25 06:36 Nasal Cannula 2 03/08/25 05:00 Nasal Cannula 2 03/08/25 04:00 03/08/25 04:00 Nasal Cannula 2 03/08/25 03:00 Nasal Cannula 2 03/08/25 01:00 Nasal Cannula 2 03/08/25 00:00 03/07/25 23:51 Nasal Cannula 2 03/07/25 23:00 Nasal Cannula 2 03/07/25 20:50 Nasal Cannula 2 03/07/25 20:00 03/07/25 20:00 Nasal Cannula 2 03/07/25 19:47 Nasal Cannula 2 03/07/25 18:57 Nasal Cannula 2 03/07/25 17:00 Nasal Cannula 2 03/07/25 16:00 03/07/25 15:41 Nasal Cannula 2 03/07/25 15:00 Nasal Cannula 2 03/07/25 14:50 Nasal Cannula 2 03/07/25 14:20 Nasal Cannula 2 03/07/25 13:50 Nasal Cannula 2 03/07/25 13:20 Nasal Cannula 2 03/07/25 13:00 Nasal Cannula 2 03/07/25 12:50 Nasal Cannula 2 03/07/25 12:35 Nasal Cannula 2 03/07/25 12:20 Nasal Cannula 2 03/07/25 12:05 Nasal Cannula 2 03/07/25 12:00 03/07/25 12:00 Simple Mask 2 03/07/25 11:50 Simple Mask 2 03/07/25 11:47 03/07/25 11:40 Simple Mask 2 03/07/25 11:30 Simple Mask 2 03/07/25 11:20 Simple Mask 3 Intake and Output 03/07/25 03/08/25 03/08/25 23:59 07:59 15:59 Intake Total 100 / 2800 50 / 50 Output Total 1180 / 4680 945 / 945 Balance -1080 / -1879 - Intake: Intake, Oral Amount 50 / 50 Intake, Total IV Amount 50 / 1750 50 / 50 Pipercillin/Tazo 3.375 gm In 0. 50 / 100 50 / 50 9 % Sodium Chloride 50 ml @ 100 mls/hr IV Q6H [facility] Rx#:[id number] Output: Output, Urine Amount 1150 / 4650 900 / 900 Output, Drainage Amount Left Abdomen Other: Number of Unmeasured Voids 0 1 Weight 80.6 kg Patient Weight 03/08/25 23:59 Weight 80.6 kg Laboratory Results - last 24 hr 03/08/25 06:20: WBC 7.7 D, RBC 3.35 L, Hgb 10.6 L, Hct 31.4 L, MCV 93.7, MCH 31.6 H, MCHC 33.8, RDW 13.2, Plt Count 218, MPV 8.9, Neut % (Auto) 75.0, Lymph % (Auto) 14.6, [place] % (Auto) 8.8, Eos % (Auto) 0.9, Baso % (Auto) 0.1, Neut # (Auto) 5.8, Lymph # (Auto) 1.1, [place] # (Auto) 0.7, Eos # (Auto) 0.1, Baso # (Auto) 0.0, Sodium 141, Potassium 3.2 L, Chloride 113 H, Carbon Dioxide 19 L, Anion Gap 12.2, BUN 18, Creatinine 1.20, Estimated Creat Clear 64, Estimated GFR 60, Est GFR ( Amer) 72, Glucose 97, Calcium 8.7, Magnesium 2.0, Total Bilirubin 0.7, AST 28, ALT 28, Alkaline Phosphatase 115, Total Protein 6.5, Albumin 3.5, Globulin 3.0, Albumin/Globulin Ratio 1.2 I & O for Labs for Last 24 Hours: Intake & Output 03/05/25 03/06/25 03/07/25 03/08/25 23:59 23:59 23:59 23:59 Intake Total 2400 / 2400 2800 / 2800 50 / 50 Output Total 4680 / 4680 945 / 945 Balance 2400 / 2400 -1879 / -1879 - Weight 81.647 kg 80.2 kg 80.6 kg Microbiology Reports for the Last 24 Hours: Microbiology 03/06/25 21:48 Blood Blood Culture - Preliminary NO GROWTH AFTER 24 HOURS 03/06/25 21:48 Blood Blood Culture - Preliminary NO GROWTH AFTER 24 HOURS Constitutional: Present mild distress, average body habitus, chronically ill appearing and cooperative Head: Present atraumatic and normocephalic ENT: Present normal exam Respiratory: Present normal respiratory effort; Absent rhonchi, wheezes or crackles Comment:: Intermittently has gasping breath but states this is his normal. But then will talk and breathe normally and can hold his breath without difficulty for exam. Does not frankly appear in distress Cardiac: Present Reg Rate and Rhythm GI: Present soft, distention, tenderness (Right lower abdomen) and normal bowel sounds Comments:: BALJINDER in place in right lower abdomen Extremities: Present normal inspection and full ROM Skin: Present intact; Absent erythema Neuro: Present Grossly Intact, alert, awake, oriented x 3 and moves all extremities Assessment and Plan *Assessment and plan (1) Acute metabolic encephalopathy: Status: Acute Category: Medical Code(s): G93.41 - Metabolic encephalopathy (2) Severe sepsis: Status: Acute Category: Medical Code(s): A41.9 - Sepsis, unspecified organism; R65.20 - Severe sepsis without septic shock (3) Acute appendicitis: Status: Deleted Qualifiers: Acute appendicitis type: unspecified acute appendicitis type Qualified Code(s): K35.80 - Unspecified acute appendicitis Category: Medical Code(s): K35.80 - Unspecified acute appendicitis (4) COVID-19: Status: Acute Category: Medical Code(s): U07.1 - COVID-19 (5) EMELINA (acute kidney injury): Status: Acute Category: Medical Code(s): N17.9 - Acute kidney failure, unspecified (6) Schizophrenia, chronic condition: Status: Acute Category: Medical Code(s): F20.9 - Schizophrenia, unspecified (7) GERD (gastroesophageal reflux disease): Status: Acute Qualifiers: Esophagitis presence: without esophagitis Qualified Code(s): K21.9 - Gastro-esophageal reflux disease without esophagitis Category: Medical Code(s): K21.9 - Gastro-esophageal reflux disease without esophagitis Plan This case was discussed with the emergency department provider and agree with admission. He is a 69-year-old male who presented with altered mental status. Initial stroke workup obtained and was unremarkable. Significant workup findings included, febrile on arrival with a temperature of 103.[address] ?[address] abdomen and pelvis positive for acute appendicitis without perforation. Viral panel positive for COVID. Received IV sepsis fluid bolus, BC obtained, broad- spectrum IV antibiotics. ED provider spoke to on-call surgical provider who agreed to see in consult. Patient taken for appendectomy on 03/07. BALJINDER left in place. Appendix was complicated with infection surrounding it. Continuing antibiotics at this time. Therapy evaluating for possible placement. Continues to require inpatient management. Problems addressed as follows: Acute metabolic encephalopathy severe sepsis COVID Necrotic appendicitis, high risk for decompensation - presented febrile with a temperature of 103.5 ?F, tachycardic-HR > 90, tachypneic, VBG lactic acid 4.0, mildly hypoxic- saturation 90% placed on 2 L. Received sepsis IV fluid bolus, broad-spectrum IV antibiotics. Initially started on IV vancomycin and Zosyn. Blood cultures obtained and negative at 24 hours. - Taken for appendectomy yesterday, tolerated procedure well. Found to have necrotic appendix with focal necrosis and abscess. BALJINDER x [address] - Discussed case with surgery, we will slowly advance diet. Recommend continued admission and close monitoring. Labs show normal white count of 7. -After rounds, patient removed IV and is refusing further IV placement. Will transition antibiotics to Augmentin 500 mg 3 times a day. Monitor closely, if has any decompensation or [place] additional fever, white count, will transition to Levaquin/Flagyl for broad coverage. - IV morphine as needed for pain management, IV Zofran as needed for nausea management. Monitor for toxicity EMELINA: Creatinine 1.50, GFR 46, BUN 27. Baseline creatinine approximately 1.0- 1.2, GFR 60-74. Creatinine improved this morning with BUN 18, creatinine 1.2. Potassium low at 3.2. Replace per protocol. - Repeat CBC, CMP, magnesium ordered for the morning. Schizophrenia, chronic: Family involved and assist with decision-making - Resumed home meds including benztropine 1.5 mg twice daily and Haldol 10 mg 3 times a day. HLD: As noted above will resume home medication after n.p.o./procedure. Holding atorvastatin 10 mg nightly. DVT prophylaxis: SCD's Full code Advance diet
[2025-03-08] MEDS: POTASSIUM CHLORIDE 20MEQ TAB 40 MEQ PO ×2 (10:05→13:13)
--- NOTE | 2025-03-08 10:15 | SW/DCPLANNER ---
Addendum entered by [facility] 03/10/25 08:10: Patient will discharge to [facility] today SNF level of care. Addendum entered by [facility] 03/10/25 07:35: Per Avelino patient has been approved SNF level of care and can admit today. I have updated Dr Wade. Addendum entered by [facility] 03/09/25 12:27: Avelino completed bedside evaluation this AM and stated that insurance is requesting additional documentation. Updated patient information has been faxed directly to patient's insurance at Avelino request. Addendum entered by [facility] 03/08/25 14:24: Avelino w/ [facility] is willing to start auth for this patient. Patient is not medically stable for discharge at this time. CM will continue to follow up. I will also update patient's brother. Addendum entered by [facility] 03/08/25 14:22: [facility] denied this patient. Original Note: Patient currently resides at [facility]. Per Miley w/ [place] patient is generally confused at baseline but ambulates independently. PT evaluated patient and recommended SNF level of care at time of discharge. I did call and speak w/ patient's brother regarding discharge plans due to patient's confusion. Per brother (Matt) he is agreeable to placement for this patient. Matt and I discussed several facilities: [facility], [facility] and [facility] are all in network w/ his insurance and has a male bed open. Patient information will be faxed to all facilities this AM. CM will continue to follow up. Discharge date is unknown at this time.
--- NOTE | 2025-03-08 10:18 | HMH.PTEV ---
Physical Therapy Evaluation Rehab PT IP Evaluation Start: 03/07/25 01:48 Freq: ONCE Status: Active Protocol: Document 03/08/25 10:15 TIMO (Rec: 03/08/25 10:18 TIMO [id number]) Subjective/History History History Per H&P: *History of present illness: Marshall Schroeder is a 69-year-old with a past medical significant for schizophrenia, GERD and anxiety. Presents to [facility] emergency department from his nursing facility [facility]- half-way per EMS. History obtained per chart review and staff, as patient is a poor historian due to altered mental status. Patient reported to be altered throughout the day, becoming tremulous and ultimately nonverbal. At baseline noted to be alert and talkative. Significant ED workup findings include, CT abdomen and pelvis positive for acute appendicitis. Viral panel positive for COVID. Febrile, temp 103.5 ?F. Hospital medicine consulted for admission. ED workup included laboratory and imaging studies. WBC within normal limit 8.9, PT 12.6, INR 1.15, anion gap 20, creatinine 1.5, GFR 46, BUN 27, alkaline phos 14. VBG pH 7.43, HCO3 16.4, total CO2 17.2, lactic acid 4.0 . respiratory pathogen panel (+) COVID. Imaging study included; abdomen and pelvis CT personally reviewed, revealing acute appendicitis without perforation. Chest CTA, head CT, personally reviewed and is without acute finding. Neck CTA I personally reviewed showing plaque at the carotid bifurcations without hemodynamically significant stenosis. Moderate bilateral internal carotid chain adenopathy coronal. Multilevel degenerative change in the cervical spine with disc space narrowing predominantly at C4-C5, C5-C6 and C6-C7 levels with disc space narrowing small disc osteophyte complexes. Mild centrilobular emphysema. Assessment of patient at bedside, he is without acute distress- somnolent. Arouses with mild stimuli. Patient reportedly became very agitated/combative while in the emergency department, received Versed 2mg. Vitals stable, on 2 L nasal cannula. Subjective Subjective Pt is pleasantly confused. Pt reports he lives home alone. [facility] How much help from another person do you currently need... Turning from your A little back to your side while in a flat bed without using bedrails? Moving from lying on A little back to sitting on the side of a flat bed without using bedrails? Moving to and from a A little bed to a chair ( including a wheelchair)? Standing up from a A little chair using your arms? (e.g., wheelchair, bedside chair) Walking in hospital A little room? Climbing 3-5 steps A little with a railing? Mobility Score 18 Mobility Level [facility] Mobility 6 Walk 10 steps or more Mobility Calculator Rehab PT IP Eval Objective Appearance Patient Behavior Appropriate,Impulsive,Confused Patient Orientation Person Difficulty following none instructions Speech Pattern Mumbled Ambulation Patient Able to Yes Ambulate Ambulation Observation IP General Gait Narrow Based Gait Pattern Observation Ambulation Distance 25 (feet) Ambulation Assistive None Device Ambulation Ability Contact Guard/Hand Hold Balance Ability to Arise Able, uses arms to help Sitting Balance Steady, safe Standing Balance Steady, wide stance Dynamic Sitting Good Balance Ability Dynamic Standing Fair Balance Ability Transfers Bed Transfer Ability Minimal x 1 (25% assist) Sit to Stand Bed Minimal x 1 (25% assist) Transfer Ability Rehab PT IP prob,goals,plan Problems Date of Evaluation: 03/08/25 PT IP Problems Bed Mobility,Transfers,Gait,Balance,Self care,Safety Rehab Potential Rehab Potential Good Plan PT Intervention Plan Bed Mobility,Transfers,Gait,Balance,Self care,Safety, Therapeutic Exercise PT Plan Frequency Daily Duration Goals Met Discharge Goals Bed Transfer Ability Independent Sit to Stand Chair Independent Transfer Ability Ambulation Distance 150 (feet) Discharge Plan PT Discharge Plan Initial physical therapy evaluation performed. Patient presents below baseline at this time in functional mobility, transfers, and strength. Pt not safe to return home at this time d/t current level of functional mobility and impaired safety awareness. PT recommending rehabilitation placement upon d/c from [place] . Pt would benefit from skilled PT while at [facility] to prevent further functional decline and maximize safety with mobility until goals are met. Eval Complexity Eval Charge Codes 07068 - Moderate Complexity PHYSICIAN CERTIFICATION: I certify the specified therapy services for Marshall Schroeder are required, authorized, and reviewed every 30 days.
[2025-03-08] MEDS: AMOXICILLIN/POT CLAVULAN 500MG TABLET 1 EACH PO ×3 (10:50→21:53)
--- NOTE | 2025-03-08 11:52 | HMH.OTEV ---
OT Evaluation Rehab OT IP Evaluation Start: 03/07/25 01:48 Freq: ONCE Status: Active Protocol: Document 03/08/25 11:47 [facility] (Rec: 03/08/25 11:52 [facility] [id number]) Rehab OT IP Assessment Subjective History Per H&P: *History of present illness: Marshall Schroeder is a 69-year-old with a past medical significant for schizophrenia, GERD and anxiety. Presents to [facility] emergency department from his nursing facility [facility] per EMS. History obtained per chart review and staff, as patient is a poor historian due to altered mental status. Patient reported to be altered throughout the day, becoming tremulous and ultimately nonverbal. At baseline noted to be alert and talkative. Significant ED workup findings include, CT abdomen and pelvis positive for acute appendicitis. Viral panel positive for COVID. Febrile, temp 103.5 ?F. Hospital medicine consulted for admission. ED workup included laboratory and imaging studies. WBC within normal limit 8.9, PT 12.6, INR 1.15, anion gap 20, creatinine 1.5, GFR 46, BUN 27, alkaline phos 14. VBG pH 7.43, HCO3 16.4, total CO2 17.2, lactic acid 4.0 . respiratory pathogen panel (+) COVID. Imaging study included; abdomen and pelvis CT personally reviewed, revealing acute appendicitis without perforation. Chest CTA, head CT, personally reviewed and is without acute finding. Neck CTA I personally reviewed showing plaque at the carotid bifurcations without hemodynamically significant stenosis. Moderate bilateral internal carotid chain adenopathy coronal. Multilevel degenerative change in the cervical spine with disc space narrowing predominantly at C4-C5, C5-C6 and C6-C7 levels with disc space narrowing small disc osteophyte complexes. Mild centrilobular emphysema. Assessment of patient at bedside, he is without acute distress- somnolent. Arouses with mild stimuli. Patient reportedly became very agitated/combative while in the emergency department, received Versed 2mg. Vitals stable, on 2 L nasal cannula. Subjective Pt confused on arrival. Pt oriented x 2 but reports he lives alone and is completely independent with all ADLs and IADLs. Pt also reports he still drives. After further chart review pt is currently residing at personal senior living. Information pt provided may not be trustworthy due to patient being poor historian. Objective Patient Orientation Person,Birthday Right Upper WFL Extremity Gross ROM Left Upper Extremity WFL Gross ROM Bed Mobility bed mobility-scooting,bed mobility - supine/sit Assist Level Minimal x 1 (25% assist) Transfer Training Sit/Stand Transfer Assist Level Minimal x 1 (25% assist) Chair Transfer Minimal x 1 (25% assist) Ability Chair Transfer Sit to/from Ambulatory Technique Rehab OT IP prob,goals,plan Problems Date of Evaluation: 03/08/25 OT IP Problems Bed Mobility,Transfers,Balance,Self care,Safety Rehab Potential Rehab Potential Good Equipment Needs Assistive Devices Rolling / Wheeled Walker Plan OT intervention Plan Bed Mobility,Transfers,Balance,Self care,Safety, Therapeutic Exercise OT Plan Frequency Daily Duration LOS Discharge Goals Bed Mobility Ability Standby Assistance Sit to Stand Chair Contact Guard/Hand Hold Transfer Ability Chair Transfer Contact Guard/Hand Hold Ability Chair Transfer Sit to/from Ambulatory Technique Chair Transfer Rolling Walker Assistive Devices Lower Body Dressing Minimal Assistance Ability Upper Body Dressing Contact Guard Ability Performing Toilet Minimal Assistance Hygiene Ability Overall Commode/ Standby Assistance,Contact Guard Toilet Transfer Ability Commode/Toilet Sit to/from Ambulatory Transfer Technique Discharge Plan OT Discharge Plan Initial physical therapy evaluation performed. Patient presents below baseline at this time in functional transfers, strength, and ADL independence. Pt not safe to return back to personal senior living at this time d/t current level of functional ability and impaired safety awareness. Therapist recommending rehabilitation placement upon d/c from [facility]. Pt would benefit from skilled OT while at [facility] to prevent further functional decline and maximize safety until goals are met. Eval Complexity Eval Charge Codes 64561 - Moderate Complexity PHYSICIAN CERTIFICATION: I certify the specified therapy services for Marshall Schroeder are required, authorized, and reviewed every 30 days.
--- NOTE | 2025-03-08 12:18 | PC.NURSE ---
patient c/o pain around IV site in left wrist when flushing. IV removed and new IV placement attempted, while attempting to obtain IV site, patient became agitated and refused new IV placement. MD notified and IV ABX were changed to PO. patient currently sitting up in bed watching tv, patient is cooperative with PO meds. 1:1. no c/o pain, call light within reach.
--- NOTE | 2025-03-08 14:07 | EXP.ANES.II ---
[facility] Anesthesia Record Part II Anesthesia Record Part II Discharge Time: 12:00 Destination: Medical Surgical Department PACU nurse assessment reviewed?: Yes Patient Condition:: Good Anesthesia Complications:: None Swallowing reflex intact?: Yes Airway Patency: Patent Cyanosis?: No Blood Pressure: 137/71 SaO2: 100 Respiratory Rate: 16 Pulse Rate: 77 Temperature: 97.5 F Mental Status: Alert & Oriented Pain level:: 0 Nausea and/or vomitting:: None Intake, IV Amount: 0 Hydration: Adequate
[2025-03-08] MEDS: NICOTINE 21MG/24HR PATCH 21 MG TD (17:04)
[2025-03-08] MEDS: PANTOPRAZOLE 40MG TABLET 40 MG PO (21:53)
[2025-03-09] VITALS (10 sets, daily range): BP systolic 104–162; BP diastolic 58–84; PULSE 66–114; RESP 20–32; TEMP 36.6–36.8; O2SAT 94–99; BMI 24.7
[2025-03-09 05:55] LABS: Hematocrit 32.9 % (42.0-52.0); Hemoglobin 10.9 g/dL (14.1-18.0); Immature Granulocytes % 0.4 %; Mean Corpuscular HGB Conc 33.1 g/dL (31.8-35.4); Mean Corpuscular Hemoglobin 31.6 pg (27.0-31.2); Mean Corpuscular Volume 95.4 fl (80-94); Nucleated Red Blood Cells % 0 %; Platelet Count 195 K/mm3 (142-424); Red Blood Count 3.45 M/mm3 (4.60-6.20); Red Cell Distribution Width-SD 47.8 fL; White Blood Count 7.2 K/mm3 (4.8-10.8)
[2025-03-09 06:07] LABS: Albumin Level 3.7 g/dl (3.5-5.0); Chloride 112 mmol/L (98-107); Sodium 140 mmol/L (136-145)
[2025-03-09 06:08] LABS: Potassium 4.6 mmoL/L (3.5-5.1)
[2025-03-09 06:10] LABS: Alanine Aminotransferase 27 U/L (12-78); Anion Gap 13.6 mEq/L (5-15); Aspartate Amino Transferase 41 U/L (17-59); Bilirubin,Total 0.7 mg/dl (0.2-1.3); Blood Urea Nitrogen 23 mg/dl (9-20); Carbon Dioxide 19 mmol/L (22.0-30.0); Creatinine Clearance Estimated 70 mL/min (50-200); Creatinine,Serum 1.10 mg/dl (0.66-1.25); Estimated Glomerular Filt Rate 66 ml/min (>60); GFR (African American) 80 ML/MIN (>60)
[2025-03-09 06:11] LABS: Albumin/Globulin Ratio 1.1 (1.1-1.8); Alkaline Phosphatase 100 U/L (38-126); Calcium 8.8 mg/dl (8.4-10.2); Globulin 3.3 g/dL (1.3-3.2); Glucose 88 mg/dl (74-100); Total Protein,Serum 7.0 g/dl (6.3-8.2)
--- NOTE | 2025-03-09 06:46 | P.PN_ITS ---
Subjective Narrative: The patient verbalizes no specific complaints. Exam Data for Last 24 hours Vital signs and Labs for Last 24 Hours: Temp Pulse Resp BP Pulse Ox O2 Del Method O2 Flow Rate 98.2 F 70 20 148/66 H 96 Room Air 2 03/09/25 03:58 03/09/25 04:00 03/09/25 03:58 03/09/25 03:58 03/09/25 03:58 03/09/25 05:00 03/08/25 18:28 FiO2 28 03/08/25 18:28 Laboratory Results - last 24 hr 03/09/25 05:36: WBC 7.2, RBC 3.45 L, Hgb 10.9 L, Hct 32.9 L, MCV 95.4 H, MCH 31.6 H, MCHC 33.1, RDW 13.7, Plt Count 195, MPV 10.0, Neut % (Auto) 60.1, Lymph % (Auto) 24.5, [place] % (Auto) 11.0 H, Eos % (Auto) 3.6, Baso % (Auto) 0.4, Neut # (Auto) 4.3, Lymph # (Auto) 1.8, [place] # (Auto) 0.8, Eos # (Auto) 0.3, Baso # (Auto) 0.0, Sodium 140, Potassium 4.6 D, Chloride 112 H, Carbon Dioxide 19 L, Anion Gap 13.6, BUN 23 H D, Creatinine 1.10, Estimated Creat Clear 70, Estimated GFR 66, Est GFR ( Amer) 80, Glucose 88, Calcium 8.8, Total Bilirubin 0.7, AST 41 D, ALT 27, Alkaline Phosphatase 100, Total Protein 7.0, Albumin 3.7, Globulin 3.3 H, Albumin/Globulin Ratio 1.1 I & O for Last 24 hours: Intake & Output 03/06/25 03/07/25 03/08/25 03/09/25 11:59 11:59 11:59 11:59 Intake Total 4050 / 4050 1794 / 1794 1302 / 1302 Output Total 2500 / 2500 3125 / 3125 730 / 730 Balance 1550 / 1550 -1331 / -1331 572 / 572 Weight 176 lb 12.972 oz 177 lb 11.081 oz 176 lb 12.972 oz Microbiology Reports for the Last 24 Hours: Microbiology 03/06/25 21:48 Blood Blood Culture - Preliminary NO GROWTH AFTER 48 HOURS 03/06/25 21:48 Blood Blood Culture - Preliminary NO GROWTH AFTER 48 HOURS Constitutional Constitutional: no acute distress *Routine Respiratory Exam Respiratory: Absent respiratory distress *Routine Abdominal Exam Abdominal: Present soft Comments: Serosanguineous BALJINDER output Progress Note: A&P Assessment and plan (1) Acute perforated appendicitis: Status: Acute Assessment and plan: Stable postoperative day 2 status post laparoscopic appendectomy (see operative report for detail). Continue Jarret-Shelby drainage for now Complete course of antibiotics
[2025-03-09] MEDS: AMOXICILLIN/POT CLAVULAN 500MG TABLET 1 EACH PO ×3 (08:08→20:24)
--- NOTE | 2025-03-09 08:26 | PC.NURSE ---
dressing to BALJINDER drains changed this morning due to being soiled
--- NOTE | 2025-03-09 08:54 | HMH.PHAAMS2 ---
- Antimicrobial Stewardship Review culture & sensitivity review Stewardship interventions: culture & sensitivity review, reviewed - no change Comments: BLOOD CX NO GROWTH AT 48 HR, PATIENT ON AUGMENTIN POST-OPERATIVELY FOR PERFORATED APPENDIX WITH APPENDECTOMY, WBC WNL AT 7.2 K/mm3, AFEBRILE OVER 24 HR.
--- NOTE | 2025-03-09 09:45 | P.PN_ITS ---
Subjective *Date: 03/09/25 *Time: 11:19 Interval history: Stable on room air this morning. Appears more shaky this morning in his upper extremities. Suspicious for some extraparametal symptoms. No nausea or vomiting. Having bowel movements. Tolerating p.o. intake. Afebrile. Medical Exam Vital signs and Labs for Last 24 Hours: Vital Signs Temp Pulse Pulse Resp BP Pulse Ox O2 Del Method 03/09/25 08:47 Room Air 03/09/25 08:00 Room Air 03/09/25 08:00 80 03/09/25 07:23 98.2 F 84 24 128/68 96 Room Air 03/09/25 06:58 Room Air 03/09/25 05:00 Room Air 03/09/25 04:00 70 03/09/25 03:58 98.2 F 66 20 148/66 H 96 Room Air 03/09/25 03:00 Room Air 03/09/25 01:00 Room Air 03/09/25 00:00 70 03/08/25 23:29 98.4 F 71 17 114/68 96 Room Air 03/08/25 23:00 Room Air 03/08/25 21:00 Room Air 03/08/25 20:00 Nasal Cannula 03/08/25 20:00 80 03/08/25 19:18 98.8 F 82 18 129/75 98 Room Air 03/08/25 18:55 Room Air 03/08/25 18:28 Nasal Cannula 03/08/25 17:00 Room Air 03/08/25 16:00 70 03/08/25 16:00 98.9 F 74 22 123/64 96 Room Air 03/08/25 14:57 Room Air 03/08/25 14:08 16 03/08/25 13:00 Nasal Cannula 03/08/25 12:00 70 03/08/25 12:00 98.2 F 76 20 109/56 L 98 Nasal Cannula 03/08/25 11:00 Nasal Cannula O2 Flow Rate FiO2 03/09/25 08:47 03/09/25 08:00 03/09/25 08:00 03/09/25 07:23 03/09/25 06:58 03/09/25 05:00 03/09/25 04:00 03/09/25 03:58 03/09/25 03:00 03/09/25 01:00 03/09/25 00:00 03/08/25 23:29 03/08/25 23:00 03/08/25 21:00 03/08/25 20:00 03/08/25 20:00 03/08/25 19:18 03/08/25 18:55 03/08/25 18:28 2 28 03/08/25 17:00 03/08/25 16:00 03/08/25 16:00 03/08/25 14:57 03/08/25 14:08 03/08/25 13:00 03/08/25 12:00 03/08/25 12:00 2 03/08/25 11:00 Intake and Output 03/08/25 03/09/25 03/09/25 23:59 07:59 15:59 Intake Total 130 / 1946 550 / 550 Output Total 300 / 1640 35 / 35 0 / 35 Balance -170 / 306 515 / 515 0 / 515 Intake: Intake, Oral Amount 130 / 1096 550 / 550 Output: Output, Urine Amount 300 / 1550 0 / 0 0 / 0 Output, Drainage Amount 35 / 35 Left Abdomen 35 / 35 Other: Number of Voids 0 Number of Unmeasured Voids 1 1 1 Number of Bowel Movements 1 Weight 80.2 kg Patient Weight 03/09/25 23:59 Weight 80.2 kg Laboratory Results - last 24 hr 03/09/25 05:36: WBC 7.2, RBC 3.45 L, Hgb 10.9 L, Hct 32.9 L, MCV 95.4 H, MCH 31.6 H, MCHC 33.1, RDW 13.7, Plt Count 195, MPV 10.0, Neut % (Auto) 60.1, Lymph % (Auto) 24.5, [place] % (Auto) 11.0 H, Eos % (Auto) 3.6, Baso % (Auto) 0.4, Neut # (Auto) 4.3, Lymph # (Auto) 1.8, [place] # (Auto) 0.8, Eos # (Auto) 0.3, Baso # (Auto) 0.0, Sodium 140, Potassium 4.6 D, Chloride 112 H, Carbon Dioxide 19 L, Anion Gap 13.6, BUN 23 H D, Creatinine 1.10, Estimated Creat Clear 70, Estimated GFR 66, Est GFR ( Amer) 80, Glucose 88, Calcium 8.8, Total Bilirubin 0.7, AST 41 D, ALT 27, Alkaline Phosphatase 100, Total Protein 7.0, Albumin 3.7, Globulin 3.3 H, Albumin/Globulin Ratio 1.1 I & O for Labs for Last 24 Hours: Intake & Output 03/06/25 03/07/25 03/08/25 03/09/25 23:59 23:59 23:59 23:59 Intake Total 2400 / 2400 2800 / 2800 1796 / 1946 550 / 550 Output Total 4680 / 4680 1640 / 1640 35 / 35 Balance 2400 / 2400 -1880 / -1880 156 / 306 515 / 515 Weight 81.647 kg 80.2 kg 80.6 kg 80.2 kg Microbiology Reports for the Last 24 Hours: Microbiology 03/06/25 21:48 Blood Blood Culture - Preliminary NO GROWTH AFTER 48 HOURS 03/06/25 21:48 Blood Blood Culture - Preliminary NO GROWTH AFTER 48 HOURS Constitutional: Present mild distress, average body habitus, chronically ill appearing and cooperative Comment:: Tremor on exam Head: Present atraumatic ENT: Present normal exam Respiratory: Present normal respiratory effort; Absent rhonchi, wheezes or crackles Comment:: Intermittently has gasping breath but states this is his normal. But then will talk and breathe normally and can hold his breath without difficulty for exam. Does not frankly appear in distress Cardiac: Present Reg Rate and Rhythm GI: Present soft, distention, tenderness (Right lower abdomen) and normal bowel sounds Comments:: BALJINDER in place in right lower abdomen Extremities: Present normal inspection and full ROM Skin: Present intact; Absent erythema Neuro: Present Grossly Intact, alert, awake, oriented x 3 and moves all extr emities Comment:: Tremor in upper extremities Assessment and Plan *Assessment and plan (1) Acute metabolic encephalopathy: Status: Acute Category: Medical Code(s): G93.41 - Metabolic encephalopathy (2) Severe sepsis: Status: Acute Category: Medical Code(s): A41.9 - Sepsis, unspecified organism; R65.20 - Severe sepsis without septic shock (3) COVID-19: Status: Acute Category: Medical Code(s): U07.1 - COVID-19 (4) EMELINA (acute kidney injury): Status: Acute Category: Medical Code(s): N17.9 - Acute kidney failure, unspecified (5) Schizophrenia, chronic condition: Status: Acute Category: Medical Code(s): F20.9 - Schizophrenia, unspecified (6) GERD (gastroesophageal reflux disease): Status: Acute Qualifiers: Esophagitis presence: without esophagitis Qualified Code(s): K21.9 - Gastro-esophageal reflux disease without esophagitis Category: Medical Code(s): K21.9 - Gastro-esophageal reflux disease without esophagitis (7) Extrapyramidal symptom: Status: Acute Category: Medical Code(s): R29.818 - Other symptoms and signs involving the nervous system (8) Acute perforated appendicitis: Status: Acute Category: Medical Code(s): K35.32 - Acute appendicitis with perforation, localized peritonitis, and gangrene, without abscess Plan This case was discussed with the emergency department provider and agree with admission. He is a 69-year-old male who presented with altered mental status. Initial stroke workup obtained and was unremarkable. Significant workup findings included, febrile on arrival with a temperature of 103.[address] ?[address] abdomen and pelvis positive for acute appendicitis without perforation. Viral panel positive for COVID. Received IV sepsis fluid bolus, BC obtained, broad- spectrum IV antibiotics. ED provider spoke to on-call surgical provider who agreed to see in consult. Patient taken for appendectomy on 03/07. BALJINDER left in place. Appendix was complicated with infection surrounding it. Continuing antibiotics at this time. Therapy evaluating for possible placement. Continues to require inpatient management. Problems addressed as follows: Acute metabolic encephalopathy severe sepsis COVID Necrotic appendicitis, with perforation high risk for decompensation - presented febrile with a temperature of 103.5 ?F, tachycardic-HR > 90, tachypneic, VBG lactic acid 4.0, mildly hypoxic- saturation 90% placed on 2 L. Received sepsis IV fluid bolus, broad-spectrum IV antibiotics. Initially started on IV vancomycin and Zosyn. Blood cultures remain negative at 48 hours. - Taken for appendectomy 03/07, tolerated procedure well. Found to have necrotic appendix with focal necrosis, perforation, and abscess. BALJINDER x [address] - Discussed case with surgery, continue with diet advancement. Complete empiric course of antibiotics. Will plan to remove drain at follow-up next week. - White count remains normal at 7.2, hemoglobin 10.9. Repeat CBC, CMP, magnesium ordered for the morning - Continue Augmentin 500 mg 3 times a day, will complete 7 days total. Monitor closely, if has any decompensation or marilyn additional fever, white count, will transition to Levaquin/Flagyl for broad coverage. - IV morphine as needed for pain management, IV Zofran as needed for nausea management. Monitor for toxicity EMELINA: Creatinine 1.50, GFR 46, BUN 27 on admission. Baseline creatinine approxi mately 1.0-1.2, GFR 60-74. - Creatinine improved to 1.1, BUN 23. Potassium 4.6. - Repeat CBC, CMP, magnesium ordered for the morning. Schizophrenia, chronic: Extrapyramidal symptoms - family involved and assist with decision-making - Resumed home meds. Appears more tremulous over the past 24 hours. Will discontinue Haldol today and monitor for improvement. I am Benadryl 25 mg once today. Continue benztropine 1.5 mg twice daily. HLD: As noted above will resume home medication after discharge. Holding atorvastatin 10 mg nightly. DVT prophylaxis: SCD's Full code Advance diet
[2025-03-09] MEDS: NICOTINE 21MG/24HR PATCH 21 MG TD (18:41)
[2025-03-09] MEDS: PANTOPRAZOLE 40MG TABLET 40 MG PO (20:24)
[2025-03-10] VITALS: BP 122/78; PULSE 100; PULSE 80; RESP 24; TEMP 36.9; O2SAT 96
--- NOTE | 2025-03-10 01:49 | PC.NURSE ---
Pt alert to self, pleasant. No acute changes this shift. Tolerating room air. Continually denies pain or any additional needs. Currently resting in bed with eyes closed. Respirations even and unlabored. Bed is low, locked, and call light is in reach.
[2025-03-10 04:00] VITALS: BP 138/78; PULSE 70; PULSE 84; RESP 18; TEMP 36.8; O2SAT 98; BMI 24.3
--- NOTE | 2025-03-10 06:01 | PC.NURSE ---
Pt had less than 10mL output from both BALJINDER drains
[2025-03-10 07:55] VITALS: BP 146/83; PULSE 91; RESP 20; TEMP 36.3; O2SAT 98
[2025-03-10 08:00] VITALS: PULSE 90
--- NOTE | 2025-03-10 08:09 | EXP.DC.SUM ---
General Admission date:: 03/07/25 Discharge date: 03/10/25 HPI HPI HPI: This is a 69-year-old gentleman with recent decline as noted below. Evaluation emergency department included a CT scan which revealed changes consistent with appendicitis. The surgical service was consulted. Forwarded from admission H&P: Marshall Schroeder is a 69-year-old with a past medical significant for schizophrenia, GERD and anxiety. Presents to [facility] emergency department from his nursing facility [facility]-longterm per EMS. History obtained per chart review and staff, as patient is a poor historian due to altered mental status. Patient reported to be altered throughout the day, becoming tremulous and ultimately nonverbal. At baseline noted to be alert and talkative. Significant ED workup findings include, CT abdomen and pelvis positive for acute appendicitis. Viral panel positive for COVID. Febrile, temp 103.5 ?F. Hospital medicine consulted for admission. ED workup included laboratory and imaging studies. WBC within normal limit 8.9, PT 12.6, INR 1.15, anion gap 20, creatinine 1.5, GFR 46, BUN 27, alkaline phos 14. VBG pH 7.43, HCO3 16.4, total CO2 17.2, lactic acid 4.0. respiratory pathogen panel (+) COVID. Imaging study included; abdomen and pelvis CT personally reviewed, revealing acute appendicitis without perforation. Chest CTA, head CT, personally reviewed and is without acute finding. Neck CTA I personally reviewed showing plaque at the carotid bifurcations without hemodynamically significant stenosis. Moderate bilateral internal carotid chain adenopathy coronal. Multilevel degenerative change in the cervical spine with disc space narrowing predominantly at C4-C5, C5-C6 and C6-C7 levels with disc space narrowing small disc osteophyte complexes. Mild centrilobular emphysema. Assessment of patient at bedside, he is without acute distress- somnolent. Arouses with mild stimuli. Patient reportedly became very agitated/combative while in the emergency department, received Versed 2mg. Vitals stable, on 2 L nasal cannula. Hospital Course Hospital Course Hospital Course: He is a 69-year-old male who presented with altered mental status. Initial stroke workup obtained and was unremarkable. Significant workup findings included, febrile on arrival with a temperature of 103.[address] ?[address] abdomen and pelvis positive for acute appendicitis without perforation. Viral panel positive for COVID. Received IV sepsis fluid bolus, BC obtained, broad-spectrum IV antibiotics. ED provider spoke to on-call surgical provider who agreed to see in consult. Patient taken for appendectomy on 03/07. BALJINDER x [address] Appendix was complicated with infection surrounding it. Continuing antibiotics at this time. Needing rehab. Stable discharge. Will follow-up with surgery as an outpatient in the next week. Problems addressed as follows: Acute metabolic encephalopathy severe sepsis COVID Necrotic appendicitis, with perforation high risk for decompensation - presented febrile with a temperature of 103.5 ?F, tachycardic-HR > 90, tachypneic, VBG lactic acid 4.0, mildly hypoxic- saturation 90% placed on 2 L. Received sepsis IV fluid bolus, broad-spectrum IV antibiotics. Initially started on IV vancomycin and Zosyn. Blood cultures remain negative at 48 hours. Found to have appendicitis with microperforation and abscess forming. Taken for appendectomy 03/07, tolerated procedure well. Found to have necrotic appendix with focal necrosis, perforation, and abscess. BALJINDER x [address] after procedure[address] Patient unfortunately pulled out his IV. Was transition to Augmentin. Will complete 7-day course of antibiotics with Augmentin 500 mg 3 times a day. Needs 3 more days at discharge. White count is remain normal during admission. Fever resolved. Tolerating p.o. intake and having bowel movements. Pain well-controlled, no opiates in 24 hours. - Has no respiratory distress from his COVID. Was initially on oxygen for less than 24 hours and has been on room air since. EMELINA: Creatinine 1.50, GFR 46, BUN 27 on admission. Baseline creatinine approximately 1.0-1.2, GFR 60-74. Creatinine improved to baseline by discharge. Schizophrenia, chronic: Extrapyramidal symptoms - family involved and assist with decision-making. Resumed home meds. After discussion with personal-longterm, his tremor and gulping breaths are his baseline. Resumed Haldol 10 mg 3 times a day and continued benztropine 1.5 mg twice daily. No behavioral disturbances during admission. Cooperative.. HLD: Held Lipitor during admission, resume atorvastatin 10 mg nightly. Of note: Patient's gulping breaths or baseline after discussion with his personal-longterm. This is how he has breathed for a very long time. Tremor in hands is chronic. He does not appear in any respiratory distress for over 72 hours with no oxygen requirement and normal vitals. Able to eat drink and communicate and will pause his breathing pattern. Total time spent on discharge 32 minutes in counseling, documentation, chart review, and direct care with patient. Exam Data for Last 24 hours Vital signs and Labs for Last 24 Hours: Temp Pulse Resp BP Pulse Ox O2 Del Method O2 Flow Rate 97.3 F L 91 H 20 146/83 H 98 Room Air 2 03/10/25 07:55 03/10/25 07:55 03/10/25 07:55 03/10/25 07:55 03/10/25 07:55 03/10/25 07:55 03/08/25 18:28 FiO2 28 03/08/25 18:28 I & O for Last 24 hours: Intake & Output 03/07/25 03/08/25 03/09/25 03/10/25 23:59 23:59 23:59 23:59 Intake Total 2800 / 2800 1796 / 1946 1510 / 2190 920 / 920 Output Total 4680 / 4680 1640 / 1640 50 / 50 0 / 0 Balance -1880 / -1880 156 / 306 1460 / 2140 920 / 920 Weight 80.2 kg 80.6 kg 80.2 kg 78.698 kg Constitutional Constitutional: no acute distress, average body habitus, chronically ill appearing and cooperative *Routine HEENT Exam Head: Present normocephalic Eye: Present EOMI and PERRL ENT: Present mucous membranes moist *Routine Neck Exam Neck: Present supple; Absent lymphadenopathy *Routine Respiratory Exam Respiratory: Present CTA bilaterally; Absent respiratory distress, rhonchi, stridor, wheezes, crackles or diminished air movement Comments: Gulping breaths. This is baseline. Discussion with personal-longterm states that he has breathed like this for years. *Routine Cardiovascular Exam Cardiovascular: Present RRR *Routine Abdominal Exam Abdominal: Present soft and normoactive bowel sounds; Absent tenderness Comments: BALJINDER drains in place x 2. Need to be removed in 1 week *Routine Rectal Exam Patient deferred: visual exam *Routine Exam Patient deferred: penile exam *Routine Extremities Exam Extremities: Absent cyanosis, clubbing or edema *Routine Skin Exam Skin: Present intact and warm; Absent rash *Routine Neurological Exam Neurological: Present alert, oriented X3 and moving all extremities; Absent altered mental status Comments: Tremor in upper extremities, chronic. Oriented to self Results Data Completed and Pending Labs on day of discharge: Preliminary micro results at discharge 03/06/25 21:48 Blood Culture - Preliminary Blood NO GROWTH AFTER 48 HOURS 03/06/25 21:48 Blood Culture - Preliminary Blood NO GROWTH AFTER 48 HOURS DS: Diagnosis Discharge Diagnosis (1) Acute metabolic encephalopathy: Status: Acute Code(s): G93.41 - Metabolic encephalopathy (2) Severe sepsis: Status: Acute Code(s): A41.9 - Sepsis, unspecified organism; R65.20 - Severe sepsis without septic shock (3) COVID-19: Status: Acute Code(s): U07.1 - COVID-19 (4) EMELINA (acute kidney injury): Status: Acute Code(s): N17.9 - Acute kidney failure, unspecified (5) Schizophrenia, chronic condition: Status: Acute Code(s): F20.9 - Schizophrenia, unspecified (6) GERD (gastroesophageal reflux disease): Status: Acute Code(s): K21.9 - Gastro-esophageal reflux disease without esophagitis Qualifiers: Esophagitis presence: without esophagitis Qualified Code(s): K21.9 - Gastro-esophageal reflux disease without esophagitis (7) Extrapyramidal symptom: Status: Acute Code(s): R29.818 - Other symptoms and signs involving the nervous system (8) Acute perforated appendicitis: Status: Acute Code(s): K35.32 - Acute appendicitis with perforation, localized peritonitis, and gangrene, without abscess Meds Home Medications and Allergies Home Medications ?Medication ?Instructions ?Recorded ?Confirmed ?Type omeprazole 40 mg capsule,delayed 40 mg PO DAILY 05/02/23 03/07/25 History release atorvastatin 10 mg tablet 10 mg PO HS 03/07/25 03/07/25 History benztropine 1 mg tablet 1.5 mg PO BID 03/07/25 03/07/25 History cholecalciferol (vitamin D3) 50 50 mcg PO DAILY 03/07/25 03/07/25 History mcg (2,000 unit) tablet (Vitamin D3) ferrous sulfate 324 mg (65 mg 324 mg PO DAILY 03/07/25 03/07/25 History iron) tablet,delayed release folic acid 1 mg tablet 1 mg PO DAILY 03/07/25 03/07/25 History lactulose 10 gram/15 mL oral 15 ml PO DAILY 03/07/25 03/07/25 History solution amoxicillin 500 mg-potassium 1 tab PO TID 3 days #9 tabs 03/10/25 Rx clavulanate 125 mg tablet haloperidol 10 mg tablet 10 mg PO TID 30 days #90 tabs 03/10/25 Rx nicotine 21 mg/24 hr daily 21 mg transdermal DAILYP PRN 03/10/25 Rx transdermal patch Nicotine Cravings 30 days #30 ea New Prescriptions to Start Prescriptions: amoxicillin-pot clavulanate Sheri,Rene haloperidol Sheri,Rene nicotine Sheri,Rene Allergies Allergy/AdvReac Type Severity Reaction Status Date / Time No Known Allergies Allergy Verified 08/07/24 11:03 Discharge Plan Disposition Patient Disposition: er SNF Condition: Fair Discharge Order Discharge Orders: Discharge Order (Routine); Ordered 03/10/25 Ordered By: Rene Wade Follow up Plan Follow up with: Ge Lam MD [Staff Physician, General Surgery] - 03/16/25 1:45 pm Jens Mccall MD [Staff Physician, General Surgery] - 03/24/25 10:45 am Prescriptions/Medication Reconciliation: New nicotine 21 mg/24 hr Patch 24 Hour 21 mg transdermal DAILYP PRN (Reason: Nicotine Cravings) 30 Days Qty: 30 0RF amoxicillin-pot clavulanate 500-125 mg Tablet 1 tab PO TID 3 Days Qty: 9 0RF Continued atorvastatin 10 mg Tablet 10 mg PO HS benztropine 1 mg Tablet 1.5 mg PO BID folic acid 1 mg Tablet 1 mg PO DAILY cholecalciferol (vitamin D3) [Vitamin D3] 50 mcg (2,000 unit) Tablet 50 mcg PO DAILY lactulose 10 gram/15 mL Solution 15 ml PO DAILY ferrous sulfate 324 mg (65 mg iron) Tablet,Delayed Release (Dr/Ec) 324 mg PO DAILY haloperidol 10 mg Tablet 10 mg PO TID 30 Days Qty: 90 0RF omeprazole 40 mg Capsule,Delayed Release(Dr/Ec) 40 mg PO DAILY Problem Reconciliation Problems Reviewed?: Yes Patient Discharge Instructions ACTIVITY: Continue current activity and No heavy lifting DIET: advance to your usual diet Additional Instructions: BALJINDER drain management Patient Instructions: DI for an Appendectomy, DI for Surgical Site Infection, DI for Sepsis in Adults, DI for Altered Mental Status, DI for COVID-19 (Suspected or Confirmed ) Print Language: [place] Providers Primary Care Provider: Komal Braga Admit Provider: Rene Wade Attending Provider: Rene Wade
[2025-03-10] MEDS: AMOXICILLIN/POT CLAVULAN 500MG TABLET 1 EACH PO (08:13)
[2025-03-10 08:28] LABS: Hematocrit 35.3 % (42.0-52.0); Hemoglobin 11.2 g/dL (14.1-18.0); Immature Granulocytes % 1.0 %; Mean Corpuscular HGB Conc 31.7 g/dL (31.8-35.4); Mean Corpuscular Hemoglobin 30.2 pg (27.0-31.2); Mean Corpuscular Volume 95.1 fl (80-94); Nucleated Red Blood Cells % 0 %; Platelet Count 269 K/mm3 (142-424); Red Blood Count 3.71 M/mm3 (4.60-6.20); Red Cell Distribution Width-SD 48.0 fL; White Blood Count 6.1 K/mm3 (4.8-10.8)
[2025-03-10 08:30] LABS: Albumin Level 4.0 g/dl (3.5-5.0); Chloride 111 mmol/L (98-107); Potassium 4.2 mmoL/L (3.5-5.1); Sodium 143 mmol/L (136-145)
[2025-03-10 08:33] LABS: Alanine Aminotransferase 41 U/L (12-78); Albumin/Globulin Ratio 1.2 (1.1-1.8); Alkaline Phosphatase 116 U/L (38-126); Anion Gap 16.2 mEq/L (5-15); Aspartate Amino Transferase 44 U/L (17-59); Bilirubin,Total 0.7 mg/dl (0.2-1.3); Blood Urea Nitrogen 17 mg/dl (9-20); Calcium 8.9 mg/dl (8.4-10.2); Carbon Dioxide 20 mmol/L (22.0-30.0); Creatinine Clearance Estimated 69 mL/min (50-200); Creatinine,Serum 1.10 mg/dl (0.66-1.25); Estimated Glomerular Filt Rate 66 ml/min (>60); GFR (African American) 80 ML/MIN (>60); Globulin 3.3 g/dL (1.3-3.2); Glucose 94 mg/dl (74-100); Total Protein,Serum 7.3 g/dl (6.3-8.2)
--- NOTE | 2025-03-10 09:30 | EXP.SURG.PN ---
Subjective Patient reports: no new complaints and bowel movement Narrative: Minimal BALJINDER drainage per nursing. Exam Data for Last 24 hours Vital signs and Labs for Last 24 Hours: Temp Pulse Resp BP Pulse Ox O2 Del Method O2 Flow Rate 97.3 F L 91 H 20 146/83 H 98 Room Air 2 03/10/25 07:55 03/10/25 07:55 03/10/25 07:55 03/10/25 07:55 03/10/25 07:55 03/10/25 08:50 03/08/25 18:28 FiO2 28 03/08/25 18:28 Laboratory Results - last 24 hr 03/10/25 07:26: WBC 6.1, RBC 3.71 L, Hgb 11.2 L, Hct 35.3 L, MCV 95.1 H, MCH 30.2, MCHC 31.7 L, RDW 13.6, Plt Count 269 D, MPV 9.4, Neut % (Auto) 56.2, Lymph % (Auto) 26.4, [place] % (Auto) 11.7 H, Eos % (Auto) 4.2, Baso % (Auto) 0.5, Neut # (Auto) 3.4, Lymph # (Auto) 1.6, [place] # (Auto) 0.7, Eos # (Auto) 0.3, Baso # (Auto) 0.0, Sodium 143, Potassium 4.2, Chloride 111 H, Carbon Dioxide 20 L, Anion Gap 16.2 H, BUN 17 D, Creatinine 1.10, Estimated Creat Clear 69, Estimated GFR 66, Est GFR ( Amer) 80, Glucose 94, Calcium 8.9, Total Bilirubin 0.7, AST 44, ALT 41 D, Alkaline Phosphatase 116, Total Protein 7.3, Albumin 4.0, Globulin 3.3 H, Albumin/Globulin Ratio 1.2 I & O for Last 24 hours: Intake & Output 03/07/25 03/08/25 03/09/25 03/10/25 11:59 11:59 11:59 11:59 Intake Total 4050 / 4050 1794 / 1794 1702 / 1702 1880 / 1880 Output Total 2500 / 2500 3125 / 3125 730 / 730 15 / 15 Balance 1550 / 1550 -1331 / -1331 972 / 972 1865 / 1865 Weight 176 lb 12.972 oz 177 lb 11.081 oz 176 lb 12.972 oz 173 lb 8 oz Constitutional Constitutional: no acute distress *Routine Respiratory Exam Respiratory: Absent respiratory distress *Routine Abdominal Exam Abdominal: Present soft Comments: Serosanguineous BALJINDER output Progress Note: A&P Assessment and plan (1) Acute perforated appendicitis: Status: Acute Assessment and plan: Stable postoperative day 3 status post laparoscopic appendectomy (see operative report for detail). Remove Jarret-Shelby drains Okay from surgical standpoint for discharge/outpatient follow-up Complete course of antibiotics
--- NOTE | 2025-03-10 12:08 | PC.NURSE ---
report called to Yaima at [facility]
== END 2025-03-10 12:22 | DRG 853 ==
LOC: ER 21:55 → 2ND 03-07 00:06
PROVIDERS: Nurse Practitioner Acute Care; Surgery; Admitting Provider Internal Medicine Adolescent Medicine; Emergency Provider Student in an Organized Health Care Education/Training Program; PCP Nurse Practitioner Family; Visit Provider Internal Medicine Adolescent Medicine
PROC: 0DTJ4ZZ Resection of Appendix, Percutaneous Endoscopic Approach (ICD-10-PCS; CPT 44970; principal; 2025-03-07 08:00)
DX: A41.9 Sepsis, unspecified organism (principal); G93.41 Metabolic encephalopathy; U07.1 COVID-19; K35.33 Acute appendicitis with perforation, localized peritonitis, and gangrene, with abscess; N17.9 Acute kidney failure, unspecified; R65.20 Severe sepsis without septic shock; F20.9 Schizophrenia, unspecified; K21.9 Gastro-esophageal reflux disease without esophagitis; F41.9 Anxiety disorder, unspecified; E78.5 Hyperlipidemia, unspecified
CPT/HCPCS: 0223U; 36415; 51702; 70450; 70496; 70498; 71045; 71275; 74177; 80053; 80307; 80320; 80329; 81001; 82550; 82803; 83605; 83690; 83735; 84439; 84443; 84484; 85025; 85610; 87040; 93005; 97116; 97162; 97166; 97530; 99285; J0131; J0696; J1100; J1171; J1200; J1596; J1836; J1885; J2003; J2250; J2371; J2543; J2704; J3010; J3375; J7030; J7120; Q9967